=== PATIENT | female | born 1940 | race Two or more races ===

== ENCOUNTER 2020-07-07 11:23 | Outpatient (REF) | payer OTHER, MEDICAID, SELFPAY ==
[2020-07-07 12:09] LABS: Hematocrit 38.5 % (37-47); Hemoglobin 12.5 g/dl (12.0-16.0); Mean Corpuscular HGB Conc 32.5 g/dl (31.0-35.0); Mean Corpuscular Hemoglobin 31.3 pg (27.0-33.0); Mean Corpuscular Volume 96.3 fL (80-98); Mean Platelet Volume 8.8 fL (9.4-12.3); Platelet Count 293 X10*3/uL (160-400); Red Cell Distribution Width 12.4 % (11.0-16.0); White Blood Count 5.6 X10*3/uL (4.8-10.8)
[2020-07-07 12:17] LABS: Estimated Average Glucose 114 mg/dL; Hemoglobin A1c % 5.6 %
[2020-07-07 12:34] LABS: Anion Gap 13 (12-20); Blood Urea Nitrogen 15 mg/dL (9-16); Calcium 9.2 mg/dL (8.4-10.2); Carbon Dioxide 27 mmol/L (22-29); Chloride 107 mmol/L (96-108); Estimated Glomerular Filt Rate 48; Glucose Random 91 mg/dL (60-115); Potassium 4.5 mmol/l (3.3-5.1); Sodium 142 mmol/L (135-145)
== END 2020-07-07 11:24 | disposition home or self-care (01) ==
LOC: HO.LAB 11:23
PROVIDERS: PCP Internal Medicine; Visit Provider Physician Assistant
DX: I10 Essential (primary) hypertension (principal)
CPT/HCPCS: 36415; 80048; 83036; 85027

== ENCOUNTER 2020-08-02 10:18 | Outpatient (REF) | payer OTHER, SELFPAY ==
--- NOTE | 2020-08-02 10:21 | CT_ITS ---
EXAMINATION: CT CHEST WITHOUT CONTRAST CLINICAL INFORMATION: Follow-up pulmonary nodule COMPARISON: Chest CT March [address] of the abdomen and pelvis November 2017 TECHNIQUE: Multidetector volumetric CT imaging of the chest was done. Axial MIP volume rendering provided. Sagittal and coronal reformatted images were obtained. This CT examination was performed using dose optimization techniques as appropriate, variously including the following: *Automated exposure control *Adjustment of mA and/or kV according to patient size (this includes techniques or standardized protocols for targeted exams where dose is matched to indication/reason for exam; i.e. 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 The lungs are otherwise clear. The previously identified groundglass opacities and areas of atelectasis/consolidation at the lung bases on March 2019 exam are no longer seen. MEDIASTINUM: The thoracic aorta is upper normal in size. The descending thoracic aorta is tortuous. The heart does not appear enlarged. There is mild coronary artery calcification. The right brachiocephalic artery is slightly ectatic measuring 1.2 cm. There are small mediastinal lymph nodes that are stable. The visualized thyroid gland is unremarkable. There is no pericardial effusion. PLEURA: There is no pleural effusion. No pleural mass or thickening. AXILLA: No lymphadenopathy. UPPER ABDOMEN: The gallbladder has been removed. There is a cyst in the upper pole of the right kidney. The visualized upper abdominal aorta is upper normal in size measuring 3 cm. 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 This is similar to previous abdominal pelvic CT scan from 2018. OSSEOUS STRUCTURES: There are mild degenerative changes of the spine. CT/CT chest wo con IMPRESSION: No pulmonary nodule seen. Mild biapical pleural parenchymal scarring. Previously identified atelectasis/consolidation and areas of groundglass attenuation at the lung bases on March 2019 exam are no longer seen. Tortuous thoracic aorta and great vessels. Mild coronary artery calcification.
== END 2020-08-02 10:19 | disposition home or self-care (01) ==
LOC: HO.CT 10:18
PROVIDERS: PCP Internal Medicine; Visit Provider Internal Medicine Pulmonary Disease
DX: R91.8 Other nonspecific abnormal finding of lung field (principal)
CPT/HCPCS: 71250

== ENCOUNTER 2020-09-13 07:53 | Outpatient (REF) | payer OTHER, MEDICAID, SELFPAY ==
[2020-09-13 08:29] LABS: Basophils Percent Auto 0.7 % (0-2); Eosinophils Absolute Auto 0.4 X10*3/uL (0.0-0.4); Eosinophils Percent Auto 6.8 % (0-4); Hematocrit 39.1 % (37-47); Hemoglobin 12.5 g/dl (12.0-16.0); Imm Gran Abs Auto 0.01 X10*3/uL (0.00-0.03); Imm Gran Pct Auto 0.2 % (0.0-0.4); Lymphocytes Absolute Auto 2.4 X10*3/uL (1.2-4.9); Lymphocytes Percent Auto 39.7 % (20-40); MANUAL DIFF FLAG NO; Mean Corpuscular Hemoglobin 31.7 pg (27.0-33.0); Mean Corpuscular Volume 99.2 fL (80-98); Mean Platelet Volume 8.9 fL (9.4-12.3); Monocytes Absolute Auto 0.5 X10*3/uL (0.1-1.2); Monocytes Percent Auto 8.3 % (2-11); Neutrophils Absolute Auto 2.6 X10*3/uL (2.0-8.3); Neutrophils Percent Auto 44.3 % (45-73); Platelet Count 296 X10*3/uL (160-400); Red Blood Count 3.94 X10*6/uL (4.20-5.50); Red Cell Distribution Width 12.8 % (11.0-16.0); White Blood Count 5.9 X10*3/uL (4.8-10.8)
[2020-09-13 09:12] LABS: Alanine Aminotransferase 11 U/L (0-31); Albumin Level 3.9 g/dL (3.5-5.0); Alkaline Phosphatase 87 U/L (39-117); Anion Gap 10 (12-20); Aspartate Amino Transferase 21 U/L (5-31); Bilirubin Total 0.4 mg/dL (0.0-1.0); Blood Urea Nitrogen 12 mg/dL (9-16); Carbon Dioxide 28 mmol/L (22-29); Chloride 109 mmol/L (96-108); Cholesterol 237 mg/dL; Estimated Glomerular Filt Rate 45; Glucose Fasting 91 mg/dL (60-99); HDL Cholesterol 57 mg/dL; LDL Cholesterol Calculated 154 mg/dl; Potassium 4.4 mmol/l (3.3-5.1); Sodium 143 mmol/L (135-145); Total Protein 6.8 g/dL (6.5-8.0); Triglycerides 134 mg/dL
[2020-09-13 09:26] LABS: Vitamin D 25-OH Total 33.2 ng/mL (>30)
== END 2020-09-13 07:54 | disposition home or self-care (01) ==
LOC: HO.LAB 07:53
PROVIDERS: Visit Provider Internal Medicine
DX: E78.00 Pure hypercholesterolemia, unspecified (principal); G43.909 Migraine, unspecified, not intractable, without status migrainosus; E55.9 Vitamin D deficiency, unspecified
CPT/HCPCS: 36415; 80053; 80061; 82306; 85025

== ENCOUNTER → 2020-11-15 08:33 | Outpatient (BNVA) | payer OTHER, SELFPAY | PROVIDERS: PCP Internal Medicine; Visit Provider Internal Medicine Pulmonary Disease | DX: J44.9 Chronic obstructive pulmonary disease, unspecified (principal); R91.8 Other nonspecific abnormal finding of lung field | CPT/HCPCS: 99212 ==

== ENCOUNTER 2021-01-02 08:10 | Outpatient (REF) | payer OTHER, SELFPAY ==
[2021-01-02 09:05] LABS: MANUAL DIFF FLAG NO
[2021-01-02 09:14] LABS: Basophils Absolute Auto 0.1 X10*3/uL (0.0-0.2); Basophils Percent Auto 0.9 % (0-2); Eosinophils Absolute Auto 0.4 X10*3/uL (0.0-0.4); Hematocrit 39.1 % (37-47); Hemoglobin 12.2 g/dl (12.0-16.0); Imm Gran Abs Auto 0.01 X10*3/uL (0.00-0.03); Imm Gran Pct Auto 0.2 % (0.0-0.4); Lymphocytes Percent Auto 34.5 % (20-40); Mean Corpuscular HGB Conc 31.2 g/dl (31.0-35.0); Mean Corpuscular Volume 99.2 fL (80-98); Mean Platelet Volume 8.5 fL (9.4-12.3); Monocytes Absolute Auto 0.5 X10*3/uL (0.1-1.2); Monocytes Percent Auto 8.8 % (2-11); Neutrophils Absolute Auto 2.8 X10*3/uL (2.0-8.3); Neutrophils Percent Auto 48.6 % (45-73); Platelet Count 313 X10*3/uL (160-400); Red Blood Count 3.94 X10*6/uL (4.20-5.50); Red Cell Distribution Width 12.9 % (11.0-16.0); White Blood Count 5.7 X10*3/uL (4.8-10.8)
[2021-01-02 09:33] LABS: Anion Gap 14 (12-20); Blood Urea Nitrogen 16 mg/dL (9-16); Calcium 8.9 mg/dL (8.4-10.2); Carbon Dioxide 25 mmol/L (22-29); Chloride 108 mmol/L (96-108); Cholesterol 183 mg/dL; Estimated Glomerular Filt Rate 43; Glucose Fasting 93 mg/dL (60-99); HDL Cholesterol 60 mg/dL; LDL Cholesterol Calculated 100 mg/dl; Potassium 4.5 mmol/L (3.3-5.1); Sodium 142 mmol/L (135-145); Triglycerides 116 mg/dL
== END 2021-01-02 08:11 | disposition home or self-care (01) ==
LOC: HO.LAB 08:10
PROVIDERS: PCP Internal Medicine; Visit Provider Nurse Practitioner Family
DX: I10 Essential (primary) hypertension (principal)
CPT/HCPCS: 36415; 80048; 80061; 85025

== ENCOUNTER 2021-01-03 09:38 | Outpatient (REF) | payer OTHER, SELFPAY ==
[2021-01-03 09:46] LABS: Glucose Urine UA NEG (NEG); Leukocyte Esterase Urine NEG (NEG); Nitrite Urine NEG (NEG); Specific Gravity - Urine >= 1.030 (1.005-1.025); Urine Blood TRACE (NEG); Urine Ketones 5 MG/DL (NEG); Urine Protein TRACE MG/DL (NEG-TRACE)
[2021-01-03 09:47] LABS: Appearance Urine CLOUDY; Color Urine YELLOW
[2021-01-03 09:55] LABS: Bacteria Urine TRACE /LPF; Squamous Epithelial Cell Urine 2+ /LPF; WBC Urine 0-2 /HPF (0-4)
== END 2021-01-03 09:39 | disposition home or self-care (01) ==
LOC: HO.LNP 09:38
PROVIDERS: Visit Provider Nurse Practitioner Family
DX: I10 Essential (primary) hypertension (principal)
CPT/HCPCS: 81001

== ENCOUNTER 2021-02-15 09:33 | Emergency (ER) | payer OTHER, SELFPAY ==
[2021-02-15 09:53] VITALS: BP 98/67; PULSE 100; RESP 18; TEMP 37.2; O2SAT 91; BMI 24.6
[2021-02-15 10:07] VITALS: BP 120/72; PULSE 83; RESP 16; TEMP 36.9; O2SAT 93
--- NOTE | 2021-02-15 11:40 | PC.NURSE ---
Patient is sitting up on side of bed in no distress. pt denies any pain currently. Respirations are even and nonlabored
[2021-02-15 11:42] VITALS: BP 122/72; PULSE 78; RESP 18; O2SAT 96
--- NOTE | 2021-02-15 11:49 | ED.PEDSOB ---
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 Months of shortness of breath, denies fever MD complaint: cough and wheezes Onset (ago): month(s) Pain Consistency: intermittent Fever: No Severity: mild Associated symptoms: cough Related Data Home Medications Medication Instructions Recorded Confirmed dicyclomine 20 mg tablet 20 mg PO QID 07/07/20 01/12/21 fluticasone propionate 220 INHALATION 07/07/20 01/12/21 mcg/actuation HFA aerosol inhaler quetiapine 25 mg tablet 25 mg PO BID 07/07/20 01/12/21 Previous Rx's Medication Instructions Recorded acetaminophen 500 mg tablet 500 mg PO Q6H PRN 30 Days #120 tab 09/20/20 amlodipine 5 mg tablet 5 mg PO DAILY 90 Days #90 tab 09/20/20 atorvastatin 80 mg tablet 80 mg PO DAILY 90 Days #90 tab 09/20/20 ezetimibe 10 mg tablet 10 mg PO DAILY 90 Days #90 tab 09/20/20 fluticasone propionate 50 1 spray INTRANASAL DAILY 30 Days 09/20/20 mcg/actuation nasal #9.9 ml spray,suspension omeprazole 20 mg capsule,delayed 20 mg PO DAILY 90 Days #90 cap 09/21/20 release meclizine 25 mg tablet 25 mg PO DAILY PRN 30 Days #30 tab 10/20/20 fluoxetine 40 mg capsule 40 mg PO QAM #30 cap 10/31/20 docusate sodium 100 mg capsule 100 mg PO BID PRN 90 Days #180 cap 11/04/20 albuterol sulfate 90 mcg/actuation 2 puff PO Q4H PRN 30 Days #8.5 g 11/07/20 aerosol inhaler fluticasone fur. 200 mcg-umeclid 1 inh INHALATION DAILY 30 Days #1 11/15/20 62.5 mcg-vilant 25 mcg ea inhalat.powder albuterol sulfate 2.5 mg INHALATION TID PRN 30 Days 11/17/20 #75 ml cephalexin 500 mg tablet 500 mg PO Q12H 7 Days #14 tab 01/12/21 cetirizine 10 mg tablet 10 mg PO DAILY 90 Days #90 tab 01/12/21 sumatriptan succinate 50 mg tablet 50 mg PO DAILY PRN 90 Days #27 tab 01/12/21 calcium carbonate 600 mg (1,500 1 tab PO DAILY #30 tab 01/16/21 mg)-vitamin D3 400 unit tablet cholecalciferol (vitamin D3) 25 25 mcg PO DAILY #30 tab 01/16/21 mcg (1,000 unit) tablet tiotropium bromide 18 mcg capsule 1 cap INHALATION DAILY #90 cap 02/13/21 with inhalation device albuterol sulfate 2 puff INHALATION QID PRN #8.5 g 02/15/21 prednisone 60 mg PO DAILY #12 tab 02/15/21 Allergies Allergy/AdvReac Type Severity Reaction Status Date / Time trazodone Allergy Intermediate nausea Verified 01/12/21 09:25 Pediatric Review of Systems : All systems ED: reviewed and negative except as stated Constitutional: Reports as per HPI and fever PMFSH Past Medical History Medical History Depression with anxiety GERD (gastroesophageal reflux disease) Migraines Pure hypercholesterolemia Surgical History H/O rectal polypectomy History of bilateral cataract extraction History of cholecystectomy History of repair of rectocele History of sinus surgery Family History Family History Father Cancer Mother Pancreatic cancer Brother Pancreatic cancer Daughter Breast cancer Family/Other FH: mental illness Maternal Grandmother Diabetes Social History Social History Alcohol intake: never Patient Tobacco Use Status: Never used Tobacco Cigarettes Per Day: 4 Smoked in Last 30 Days: No Use of substances other than those prescribed or required for medical reasons: No Advance Directives: Yes Advance Directives Information Provided: Yes Advance Directives on File: No Pediatric Exam Narrative: Physical exam: well developed well nourished hydrated elderly female not distress General: Limitations: no limitations Eye: Eye exam: Present normal appearance ENT: ENT exam: normal oropharynx, mucous membranes moist and other (no pharyngeal erythema) Neck: Neck exam: Present other (supple) Chest: Chest inspection: Present normal inspection and rash Respiratory: Respiratory exam: Present wheezes Cardiovascular: Cardiovascular exam: Present regular rate and normal heart sounds Abdominal Exam: Abdominal exam: Present soft; Absent tenderness Extremities Exam: Extremities exam: Present normal inspection and full ROM Skin: Skin exam: Absent rash Course Course Course Narrative: patient with mild chronic asthma will start short course of steriods and dc home Reevaluation(s) Reevaluation #1: feels better, will dc home Time: 13:18 Discharge Plan Discharge Clinical Impression: Asthma with exacerbation Qualifiers: Asthma severity: mild Asthma persistence: intermittent Qualified Code(s): J45.21 - Mild intermittent asthma with (acute) exacerbation Patient Disposition: Home, Self-Care Instructions: Asthma (ED) Prescriptions: New prednisone 20 mg tablet 60 mg PO DAILY Qty: 12 RF: 0 albuterol sulfate 90 mcg/actuation HFA aerosol inhaler 2 puff inhalation QID PRN (Reason: shortness of breath or wheezing) Qty: 8.5 RF: 0 No Action omeprazole 20 mg capsule,delayed release(DR/EC) 20 mg PO DAILY 90 Days Qty: 90 RF: 3 fluoxetine 40 mg capsule 40 mg PO QAM Qty: 30 RF: 6 docusate sodium [DOK] 100 mg capsule 100 mg PO BID PRN (Reason: congestion) 90 Days Qty: 180 RF: 3 albuterol sulfate 90 mcg/actuation HFA aerosol inhaler 2 puff PO Q4H PRN (Reason: bronchospasm) 30 Days Qty: 8.5 RF: 2 albuterol sulfate 2.5 mg /3 mL (0.083 %) solution for nebulization 2.5 mg inhalation TID PRN (Reason: bronchospasm) 30 Days Qty: 75 RF: 6 calcium carbonate-vitamin D3 600 mg(1,500mg) -400 unit tablet 1 tab PO DAILY Qty: 30 RF: 7 cholecalciferol (vitamin D3) 25 mcg (1,000 unit) tablet 25 mcg PO DAILY Qty: 30 RF: 7 tiotropium bromide [Spiriva with HandiHaler] 18 mcg capsule, w/inhalation device 1 cap inhalation DAILY Qty: 90 RF: 1 acetaminophen 500 mg tablet 500 mg PO Q6H PRN (Reason: pain) 30 Days Qty: 120 RF: 6 atorvastatin 80 mg tablet 80 mg PO DAILY 90 Days Qty: 90 RF: 3 ezetimibe 10 mg tablet 10 mg PO DAILY 90 Days Qty: 90 RF: 3 fluticasone propionate [Flonase Allergy Relief] 50 mcg/actuation spray,suspension 1 spray intranasal DAILY 30 Days Qty: 9.9 RF: 6 amlodipine 5 mg tablet 5 mg PO DAILY 90 Days Qty: 90 RF: 3 meclizine 25 mg tablet 25 mg PO DAILY PRN (Reason: motion sickness) 30 Days Qty: 30 RF: 0 Flovent HFA 220 mcg/actuation HFA aerosol inhaler inhalation RF: 0 dicyclomine 20 mg tablet 20 mg PO QID RF: 0 quetiapine 25 mg tablet 25 mg PO BID RF: 0 cetirizine 10 mg tablet 10 mg PO DAILY 90 Days Qty: 90 RF: 0 sumatriptan succinate 50 mg tablet 50 mg PO DAILY PRN (Reason: migraine headache) 90 Days Qty: 27 RF: 0 cephalexin 500 mg tablet 500 mg PO Q12H 7 Days Qty: 14 RF: 0 Trelegy Ellipta 200-62.5-25 mcg blister with device 1 inh inhalation DAILY 30 Days Qty: 1 RF: 6 Referrals: Socorro Waite MD [Primary Care Provider] - 1 week
[2021-02-15] MEDS: Albuterol Sulfate 90 MCG 8 GM INHALER 4 PUFF INHALE (12:12)
[2021-02-15 12:13] VITALS: PULSE 70; O2SAT 93
[2021-02-15] MEDS: predniSONE 20 MG TABLET 60 MG PO (12:26)
[2021-02-15 12:46] VITALS: BP 123/70; PULSE 66; RESP 20; O2SAT 93
--- NOTE | 2021-02-15 13:20 | PC.NURSE ---
Patient states she is feeling much better and wants to go home. Doctor notified of patient request.
[2021-02-15 13:37] LABS: Influenza A PCR NEGATIVE (Negative); Influenza B PCR NEGATIVE (Negative); Resp Syncy Virus RNA Qual PCR NEGATIVE (Negative); SARS COV2 PCR INHOUSE NEGATIVE (Negative)
== END 2021-02-15 14:12 | disposition home or self-care (01) ==
PROVIDERS: Emergency Provider Emergency Medicine; PCP Internal Medicine
DX: J45.21 Mild intermittent asthma with (acute) exacerbation (principal); Z20.822 Contact with and (suspected) exposure to COVID-19; Z79.899 Other long term (current) drug therapy; F17.210 Nicotine dependence, cigarettes, uncomplicated; Z71.6 Tobacco abuse counseling
CPT/HCPCS: 0241U; 36415; 94640; 99284

== ENCOUNTER 2021-03-15 07:40 | Outpatient (REF) | payer OTHER, SELFPAY ==
--- NOTE | ~2021-03-15 | MM_ITS ---
EXAMINATION: MM SCREENING DIGITAL BREAST TOMOSYNTHESIS, BILATERAL CLINICAL INFORMATION: Screening. Asymptomatic. The lifetime risk of breast cancer based on the Tyrer-Cuzick Model is 3%. COMPARISON: Mammography: 03/08/2020, 03/03/2019, 01/13/2018 TECHNIQUE: Digital breast tomosynthesis is performed in both the craniocaudal and mediolateral oblique views along with computer-aided detection (CAD). Synthesized 2D images are generated from the tomosynthesis. FINDINGS: The breasts are almost entirely fatty (ACR BI-RADS breast composition Category a). There are no significant masses, abnormal calcifications, or other abnormalities. There are scattered bilateral vascular and some ductal secretory calcifications. The axilla and skin contours are unremarkable. No significant changes. MM/MM tomosynthesis screening BI IMPRESSION: No mammographic evidence of malignancy. ASSESSMENT: BI-RADS 2: Benign RECOMMENDATION: Routine annual mammography screening. This patient's information was entered into a reminder system with a target due date for their next mammogram.
== END 2021-03-15 07:41 | disposition home or self-care (01) ==
LOC: HO.MAMMO 07:40
PROVIDERS: Visit Provider Internal Medicine
DX: Z12.31 Encounter for screening mammogram for malignant neoplasm of breast (principal)
CPT/HCPCS: 77063; 77067

== ENCOUNTER → 2021-03-23 10:17 | Outpatient (BNVA) | payer OTHER, SELFPAY | PROVIDERS: PCP Internal Medicine; Visit Provider Internal Medicine Pulmonary Disease | DX: J44.9 Chronic obstructive pulmonary disease, unspecified (principal); R91.8 Other nonspecific abnormal finding of lung field | CPT/HCPCS: 99212 ==

== ENCOUNTER 2021-05-09 07:07 | Outpatient (REF) | payer OTHER, SELFPAY ==
[2021-05-09 08:56] LABS: Alanine Aminotransferase 12 U/L (0-31); Albumin Level 4.1 g/dL (3.5-5.0); Alkaline Phosphatase 89 U/L (39-117); Anion Gap 13 (12-20); Aspartate Amino Transferase 23 U/L (5-31); Bilirubin Total 0.3 mg/dL (0.0-1.0); Blood Urea Nitrogen 10 mg/dL (9-16); Calcium 9.5 mg/dL (8.4-10.2); Carbon Dioxide 27 mmol/L (22-29); Chloride 109 mmol/L (96-108); Cholesterol 201 mg/dL; Estimated Glomerular Filt Rate 40; Glucose Fasting 89 mg/dL (60-99); HDL Cholesterol 58 mg/dL; LDL Cholesterol Calculated 113 mg/dl; Potassium 4.5 mmol/L (3.3-5.1); Sodium 144 mmol/L (135-145); Triglycerides 150 mg/dL
[2021-05-15 13:17] LABS: Vitamin D 25-OH, D2 <4 ng/mL; Vitamin D 25-OH, D3 37 ng/mL; Vitamin D 25-OH, Total 37 ng/mL (30-100)
== END 2021-05-09 07:08 | disposition home or self-care (01) ==
LOC: HO.LAB 07:07
PROVIDERS: PCP Internal Medicine; Visit Provider Internal Medicine
DX: E78.5 Hyperlipidemia, unspecified (principal); E55.9 Vitamin D deficiency, unspecified; G43.909 Migraine, unspecified, not intractable, without status migrainosus
CPT/HCPCS: 36415; 80053; 80061; 82306

== ENCOUNTER 2021-08-14 10:10 | Outpatient (REF) | payer OTHER, SELFPAY ==
--- NOTE | ~2021-08-14 | CT_ITS ---
EXAMINATION: CT CHEST WITHOUT CONTRAST CLINICAL INFORMATION: Follow-up pulmonary nodules COMPARISON: Previous chest CT most recent July 2020 TECHNIQUE: Multidetector volumetric CT imaging of the chest was done. Axial MIP volume rendering provided. Sagittal and coronal reformatted images were obtained. This CT examination was performed using dose optimization techniques as appropriate, variously including the following: *Automated exposure control *Adjustment of mA and/or kV according to patient size (this includes techniques or standardized protocols for targeted exams where dose is matched to indication/reason for exam; i.e. extremities or head) *Use of iterative reconstruction technique DLP: 131 mGy-cm FINDINGS: LUNGS: There is mild biapical pleural and parenchymal scarring. There is minimal scarring or subsegmental atelectasis at the right posterior lateral costophrenic angle axial image 46 series 4 and medial left lower lobe adjacent to the descending thoracic aorta axial image 45 series 4 that is stable. The lungs are otherwise clear. No evidence of emphysema interstitial lung disease or bronchiectasis is seen. There is no endobronchial or endotracheal lesion. MEDIASTINUM: The heart does not appear enlarged. There is mild coronary artery calcification. Thoracic aorta is upper normal in size and tortuous. There are no enlarged hilar or mediastinal lymph nodes. PLEURA: There is no pleural effusion. No pleural mass or thickening. AXILLA: No lymphadenopathy. UPPER ABDOMEN: The gallbladder is been removed. There is a 2 cm low-attenuation lesion in the right kidney probably representing a cyst that is stable. 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 OSSEOUS STRUCTURES: There are degenerative changes of the spine. There are lucent lesions with vertical striations in the lower thoracic and upper lumbar spine likely representing hemangiomas that are stable. CT/CT chest wo con IMPRESSION: Stable minimal scarring or subsegmental atelectasis at the lung bases. Fleischner guidelines were followed.
== END 2021-08-14 10:11 | disposition home or self-care (01) ==
LOC: HO.CT 10:10
PROVIDERS: PCP Internal Medicine; Visit Provider Internal Medicine Pulmonary Disease
DX: R91.8 Other nonspecific abnormal finding of lung field (principal)
CPT/HCPCS: 71250

== ENCOUNTER 2021-08-22 08:31 | Outpatient (REF) | payer OTHER, SELFPAY ==
--- NOTE | ~2021-08-22 | XR_ITS ---
EXAMINATION: XR MANDIBLE CLINICAL INFORMATION: Jaw pain COMPARISON: None TECHNIQUE: 4 views of the mandible were obtained. FINDINGS: Patient is a edentulous. No fracture. No focal bone lesion. TMJ joints are normal. Visualized paranasal sinuses normally aerated. Degenerative spondylosis of the mid lower cervical spine is partially imaged. XR/XR mandible <4V IMPRESSION: No acute abnormality of the mandible.
== END 2021-08-22 08:32 | disposition home or self-care (01) ==
LOC: HO.XRAY 08:31
PROVIDERS: PCP Internal Medicine; Visit Provider Internal Medicine
DX: R68.84 Jaw pain (principal)
CPT/HCPCS: 70100

== ENCOUNTER → 2021-08-25 09:57 | Outpatient (BNVA) | payer OTHER, SELFPAY | PROVIDERS: PCP Internal Medicine; Visit Provider Internal Medicine Pulmonary Disease | DX: J44.9 Chronic obstructive pulmonary disease, unspecified (principal); R91.8 Other nonspecific abnormal finding of lung field | CPT/HCPCS: 99212 ==

== ENCOUNTER 2021-11-22 08:50 | Outpatient (REF) | payer OTHER, SELFPAY ==
[2021-11-22 09:40] LABS: Hematocrit 39.3 % (37.0-47.0); Hemoglobin 12.9 g/dl (12.0-16.0); Mean Corpuscular HGB Conc 32.8 g/dl (31.0-35.0); Mean Corpuscular Hemoglobin 31.7 pg (27.0-33.0); Mean Corpuscular Volume 96.6 fL (80.0-98.0); Mean Platelet Volume 8.4 fL (9.4-12.3); Platelet Count 337 X10*3/uL (160-400); Red Blood Count 4.07 X10*6/uL (4.20-5.50); Red Cell Distribution Width 12.7 % (11.0-16.0); White Blood Count 6.2 X10*3/uL (4.8-10.8)
[2021-11-22 09:42] LABS: Appearance Urine CLEAR; Color Urine STRAW; Glucose Urine UA NEG (NEG); Leukocyte Esterase Urine TRACE (NEG); Nitrite Urine NEG (NEG); PH 5.5 (5.0-8.0); Specific Gravity - Urine <= 1.005 (1.005-1.025); Urine Blood TRACE (NEG); Urine Ketones NEG (NEG); Urine Protein NEG (NEG-TRACE)
[2021-11-22 10:03] LABS: RBC Urine 0-2 /HPF (0); Squamous Epithelial Cell Urine TRACE /LPF
[2021-11-22 10:23] LABS: Erythrocyte Sedimentation Rate 26 MM/HR (0-20)
[2021-11-22 10:24] LABS: Alanine Aminotransferase 12 U/L (0-31); Albumin Level 4.2 g/dL (3.5-5.0); Alkaline Phosphatase 103 U/L (39-117); Anion Gap 13 (12-20); Aspartate Amino Transferase 25 U/L (5-31); Bilirubin Direct < 0.2 mg/dL (0.0-0.5); Bilirubin Total 0.3 mg/dL (0.0-1.0); Blood Urea Nitrogen 13 mg/dL (9-16); Calcium 9.9 mg/dL (8.4-10.2); Carbon Dioxide 27 mmol/L (22-29); Chloride 108 mmol/L (96-108); Cholesterol 317 mg/dL; Estimated Glomerular Filt Rate 46; Glucose Random 85 mg/dL (60-115); HDL Cholesterol 62 mg/dL; LDL Cholesterol Calculated 221 mg/dl; Potassium 4.9 mmol/L (3.3-5.1); Sodium 143 mmol/L (135-145); Total Protein 7.6 g/dL (6.5-8.0); Triglycerides 170 mg/dL
[2021-11-22 10:46] LABS: Thyroid Stimulating Hormone 1.62 uIU/mL (0.32-4.0)
== END 2021-11-22 08:51 | disposition home or self-care (01) ==
LOC: HO.LAB 08:50
PROVIDERS: PCP Internal Medicine; Visit Provider Internal Medicine
DX: R42 Dizziness and giddiness (principal); I10 Essential (primary) hypertension
CPT/HCPCS: 36415; 80048; 80061; 80076; 81001; 84443; 85027; 85652

== ENCOUNTER 2021-12-05 07:38 | Outpatient (REF) | payer OTHER, SELFPAY ==
--- NOTE | ~2021-12-05 | XR_ITS ---
EXAMINATION: XR CHEST CLINICAL INFORMATION: Syncope and collapse COMPARISON: Previous chest CT July 2021 and chest x-ray March 2019 TECHNIQUE: 2 views of the chest were obtained. FINDINGS: The cardiac silhouette does not appear enlarged. The thoracic aorta is tortuous. Hilar and mediastinal contours are otherwise unremarkable. The lungs are clear. There is no pleural effusion or pneumothorax. Bony structures are unremarkable. XR/XR chest 2V IMPRESSION: No evidence for acute disease in the chest.
--- NOTE | 2021-12-05 07:43 | ECG_ITS ---
Test Reason : r55 Blood Pressure : / mmHG Vent. Rate : 074 BPM Atrial Rate : 074 BPM P-R Int : 246 ms QRS Dur : 084 ms QT Int : 378 ms P-R-T Axes : 071 075 063 degrees QTc Int : 419 ms Sinus rhythm with 1st degree A-V block Abnormal ECG When compared with ECG of 27-OCT-2019 10:01, No significant change was found Referred By: Trixie Barber Electronically Signed By:ONDINA PAYNE
[2021-12-05 08:56] LABS: Anion Gap 14 (12-20); Blood Urea Nitrogen 17 mg/dL (9-16); Calcium 9.4 mg/dL (8.4-10.2); Carbon Dioxide 25 mmol/L (22-29); Chloride 107 mmol/L (96-108); Estimated Glomerular Filt Rate 40; Glucose Random 132 mg/dL (60-115); Potassium 4.2 mmol/L (3.3-5.1); Sodium 142 mmol/L (135-145)
[2021-12-05 09:07] LABS: Appearance Urine HAZY; Color Urine YELLOW; Glucose Urine UA NEG (NEG); Leukocyte Esterase Urine 1+ (NEG); Nitrite Urine NEG (NEG); PH 5.5 (5.0-8.0); Specific Gravity - Urine >= 1.030 (1.005-1.025); UACC Culture Trigger YES; Urine Blood TRACE (NEG); Urine Ketones NEG (NEG); Urine Protein TRACE MG/DL (NEG-TRACE)
[2021-12-05 09:09] LABS: Erythrocyte Sedimentation Rate 16 MM/HR (0-20)
[2021-12-05 09:40] LABS: Bacteria Urine 1+ /LPF; Mucus Urine 1+ /LPF; Squamous Epithelial Cell Urine 1+ /LPF
== END 2021-12-05 07:39 | disposition home or self-care (01) ==
LOC: HO.LAB 07:38
PROVIDERS: PCP Internal Medicine; Visit Provider Nurse Practitioner Family
DX: R55 Syncope and collapse (principal); R42 Dizziness and giddiness; R70.0 Elevated erythrocyte sedimentation rate
CPT/HCPCS: 36415; 71046; 80048; 81001; 81003; 85652; 87086; 93005

== ENCOUNTER → 2022-03-22 08:32 | Outpatient (BNVA) | payer OTHER, SELFPAY | PROVIDERS: PCP Internal Medicine; Visit Provider Internal Medicine Pulmonary Disease | DX: J44.9 Chronic obstructive pulmonary disease, unspecified (principal); R91.8 Other nonspecific abnormal finding of lung field; Z79.899 Other long term (current) drug therapy | CPT/HCPCS: 99212 ==

== ENCOUNTER → 2022-05-21 08:05 | Outpatient (BNVA) | payer OTHER, SELFPAY | PROVIDERS: PCP Internal Medicine; Visit Provider Orthopaedic Surgery | DX: M17.0 Bilateral primary osteoarthritis of knee (principal) | CPT/HCPCS: 20610; 99212; J1100 ==

== ENCOUNTER 2022-06-14 08:49 | Outpatient (REF) | payer OTHER, SELFPAY ==
--- NOTE | ~2022-06-14 | XR_ITS ---
EXAMINATION: XR KNEES AP STANDING, BILATERAL XR KNEE, 2 VIEWS, LEFT XR KNEE, 2 VIEWS, RIGHT CLINICAL INFORMATION: Bilateral knee pain. COMPARISON: 01/08/2019 TECHNIQUE: Standing AP view of both knees and lateral and sunrise views of each knee. FINDINGS: LEFT KNEE: There is mild medial compartment joint space narrowing with marginal osteophytes, more pronounced as compared to prior. Osteophytes are also evident in the lateral and patellofemoral compartments. Mild articular cortical irregularity and joint space narrowing in the patellofemoral compartment. No joint effusion. No fracture or malalignment. Mild soft tissue swelling. Calcific atherosclerosis in the popliteal artery. RIGHT KNEE: Mild medial compartment joint space narrowing with small to moderate-sized marginal osteophytes, unchanged. Additional mild lateral compartment joint space narrowing and patellofemoral compartment joint space narrowing with small marginal osteophytes. Small right knee joint effusion. Calcific atherosclerosis is present in the popiteal artery. There are calcifications in the posterior soft tissues which are of uncertain etiology, potentially due in part to calcifications within a Avalos's cyst. Mild soft tissue swelling. 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 Progression of the mild medial compartment osteoarthritis in the left knee. Mild patellofemoral compartment osteoarthritis appears unchanged.
--- NOTE | ~2022-06-14 | XR_ITS ---
EXAMINATION: XR KNEES AP STANDING, BILATERAL XR KNEE, 2 VIEWS, LEFT XR KNEE, 2 VIEWS, RIGHT CLINICAL INFORMATION: Bilateral knee pain. COMPARISON: 01/08/2019 TECHNIQUE: Standing AP view of both knees and lateral and sunrise views of each knee. FINDINGS: LEFT KNEE: There is mild medial compartment joint space narrowing with marginal osteophytes, more pronounced as compared to prior. Osteophytes are also evident in the lateral and patellofemoral compartments. Mild articular cortical irregularity and joint space narrowing in the patellofemoral compartment. No joint effusion. No fracture or malalignment. Mild soft tissue swelling. Calcific atherosclerosis in the popliteal artery. RIGHT KNEE: Mild medial compartment joint space narrowing with small to moderate-sized marginal osteophytes, unchanged. Additional mild lateral compartment joint space narrowing and patellofemoral compartment joint space narrowing with small marginal osteophytes. Small right knee joint effusion. Calcific atherosclerosis is present in the popiteal artery. There are calcifications in the posterior soft tissues which are of uncertain etiology, potentially due in part to calcifications within a Avalos's cyst. Mild soft tissue swelling. 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 Progression of the mild medial compartment osteoarthritis in the left knee. Mild patellofemoral compartment osteoarthritis appears unchanged.
--- NOTE | ~2022-06-14 | XR_ITS ---
EXAMINATION: XR KNEES AP STANDING, BILATERAL XR KNEE, 2 VIEWS, LEFT XR KNEE, 2 VIEWS, RIGHT CLINICAL INFORMATION: Bilateral knee pain. COMPARISON: 01/08/2019 TECHNIQUE: Standing AP view of both knees and lateral and sunrise views of each knee. FINDINGS: LEFT KNEE: There is mild medial compartment joint space narrowing with marginal osteophytes, more pronounced as compared to prior. Osteophytes are also evident in the lateral and patellofemoral compartments. Mild articular cortical irregularity and joint space narrowing in the patellofemoral compartment. No joint effusion. No fracture or malalignment. Mild soft tissue swelling. Calcific atherosclerosis in the popliteal artery. RIGHT KNEE: Mild medial compartment joint space narrowing with small to moderate-sized marginal osteophytes, unchanged. Additional mild lateral compartment joint space narrowing and patellofemoral compartment joint space narrowing with small marginal osteophytes. Small right knee joint effusion. Calcific atherosclerosis is present in the popiteal artery. There are calcifications in the posterior soft tissues which are of uncertain etiology, potentially due in part to calcifications within a Avalos's cyst. Mild soft tissue swelling. 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 Progression of the mild medial compartment osteoarthritis in the left knee. Mild patellofemoral compartment osteoarthritis appears unchanged.
== END 2022-06-14 08:50 | disposition home or self-care (01) ==
LOC: HO.HOSX 08:49
PROVIDERS: Visit Provider Orthopaedic Surgery
DX: M17.0 Bilateral primary osteoarthritis of knee (principal); R26.9 Unspecified abnormalities of gait and mobility
CPT/HCPCS: 73560; 73565; 99212

== ENCOUNTER 2022-11-01 08:49 | Outpatient (REF) | payer OTHER, SELFPAY ==
[2022-11-01 08:57] LABS: MANUAL DIFF FLAG NO
[2022-11-01 09:48] LABS: Basophils Absolute Auto 0.1 X10*3/uL (0.0-0.2); Basophils Percent Auto 0.7 % (0-2); Eosinophils Absolute Auto 0.4 X10*3/uL (0.0-0.4); Eosinophils Percent Auto 4.5 % (0-4); Hematocrit 37.2 % (37.0-47.0); Hemoglobin 11.9 g/dl (12.0-16.0); Imm Gran Abs Auto 0.02 X10*3/uL (0.00-0.03); Imm Gran Pct Auto 0.2 % (0.0-0.4); Lymphocytes Absolute Auto 2.4 X10*3/uL (1.2-4.9); Mean Corpuscular Hemoglobin 31.7 pg (27.0-33.0); Mean Corpuscular Volume 99.2 fL (80.0-98.0); Monocytes Absolute Auto 0.6 X10*3/uL (0.1-1.2); Monocytes Percent Auto 7.5 % (2-11); Neutrophils Absolute Auto 4.8 x10*3/uL (2.0-8.3); Neutrophils Percent Auto 58.1 % (45-73); Platelet Count 343 X10*3/uL (160-400); Red Blood Count 3.75 X10*6/uL (4.20-5.50); Red Cell Distribution Width 12.5 % (11.0-16.0); White Blood Count 8.3 X10*3/uL (4.8-10.8)
[2022-11-01 11:07] LABS: Alanine Aminotransferase 13 U/L (0-31); Albumin Level 4.2 g/dL (3.5-5.0); Alkaline Phosphatase 91 U/L (39-117); Anion Gap 16 (12-20); Aspartate Amino Transferase 24 U/L (5-31); Bilirubin Total 0.5 mg/dL (0.0-1.0); Blood Urea Nitrogen 16 mg/dL (9-16); Calcium 9.5 mg/dL (8.4-10.2); Carbon Dioxide 24 mmol/L (22-29); Chloride 108 mmol/L (96-108); Cholesterol 166 mg/dL; Estimated Glomerular Filt Rate 29; Glucose Fasting 84 mg/dL (60-99); HDL Cholesterol 53 mg/dL; LDL Cholesterol Calculated 86 mg/dl; Sodium 143 mmol/L (135-145); Total Protein 7.1 g/dL (6.5-8.0); Triglycerides 135 mg/dL; Vitamin D 25-OH Total 47.8 ng/mL (>30)
== END 2022-11-01 08:50 | disposition home or self-care (01) ==
LOC: HO.LAB 08:49
PROVIDERS: PCP Internal Medicine; Visit Provider Internal Medicine
DX: J44.9 Chronic obstructive pulmonary disease, unspecified (principal); E78.00 Pure hypercholesterolemia, unspecified; E55.9 Vitamin D deficiency, unspecified; E78.5 Hyperlipidemia, unspecified
CPT/HCPCS: 36415; 80053; 80061; 82306; 85025

== ENCOUNTER 2023-02-15 07:45 | Outpatient (REF) | payer OTHER, SELFPAY ==
--- NOTE | ~2023-02-15 | XR_ITS ---
EXAMINATION: Bilateral knee x-ray CLINICAL INFORMATION: Pain. Osteoarthritis. COMPARISON: Previous x-rays most recent May 2022 TECHNIQUE: 2 views of each knee FINDINGS: Right knee: There may be slight valgus angulation. Bone alignment is otherwise normal. No fracture or dislocation. Osteopenia. Tricompartment arthritis. Small joint effusion. Soft tissue calcification posterior to the knee not all of which appears vascular. Again, possible calcification Avalos's cyst should be considered. This is similar to previous exam. Left: Bone alignment is normal. No fracture or dislocation. Osteopenia. There is arthritis at the medial femoral tibial and patellofemoral joints with joint space narrowing and osteophyte formation. No joint effusion. XR/XR knee LT 2V IMPRESSION: Bilateral arthritis, right greater than left.
--- NOTE | ~2023-02-15 | XR_ITS ---
EXAMINATION: Bilateral knee x-ray CLINICAL INFORMATION: Pain. Osteoarthritis. COMPARISON: Previous x-rays most recent May 2022 TECHNIQUE: 2 views of each knee FINDINGS: Right knee: There may be slight valgus angulation. Bone alignment is otherwise normal. No fracture or dislocation. Osteopenia. Tricompartment arthritis. Small joint effusion. Soft tissue calcification posterior to the knee not all of which appears vascular. Again, possible calcification Avalos's cyst should be considered. This is similar to previous exam. Left: Bone alignment is normal. No fracture or dislocation. Osteopenia. There is arthritis at the medial femoral tibial and patellofemoral joints with joint space narrowing and osteophyte formation. No joint effusion. XR/XR knee RT 2V IMPRESSION: Bilateral arthritis, right greater than left.
== END 2023-02-15 07:46 | disposition home or self-care (01) ==
LOC: HO.XRAY 07:45
PROVIDERS: PCP Internal Medicine; Visit Provider Internal Medicine
DX: M17.0 Bilateral primary osteoarthritis of knee (principal)
CPT/HCPCS: 73560

== ENCOUNTER → 2023-03-12 09:37 | Outpatient (BNVA) | payer OTHER, SELFPAY | PROVIDERS: PCP Internal Medicine; Visit Provider Internal Medicine Pulmonary Disease | DX: J44.9 Chronic obstructive pulmonary disease, unspecified (principal); R91.8 Other nonspecific abnormal finding of lung field; Z79.899 Other long term (current) drug therapy | CPT/HCPCS: 99212 ==

== ENCOUNTER → 2023-03-22 09:42 | Outpatient (BNVA) | payer OTHER, SELFPAY | PROVIDERS: PCP Internal Medicine; Visit Provider Orthopaedic Surgery | DX: M17.11 Unilateral primary osteoarthritis, right knee (principal); M17.12 Unilateral primary osteoarthritis, left knee; R26.9 Unspecified abnormalities of gait and mobility | CPT/HCPCS: 20610; 99212; J1100 ==

== ENCOUNTER 2023-03-29 08:03 | Outpatient (REF) | payer OTHER, SELFPAY ==
--- NOTE | ~2023-03-29 | MM_ITS ---
EXAMINATION: MM SCREENING DIGITAL BREAST TOMOSYNTHESIS, BILATERAL CLINICAL INFORMATION: Screening. Asymptomatic. The lifetime risk of breast cancer based on the Tyrer-Cuzick Model is 2%. COMPARISON: Mammography: This study is compared with prior exams dating back to 2017. TECHNIQUE: Digital breast tomosynthesis is performed in both the craniocaudal and mediolateral oblique views along with computer-aided detection (CAD). Synthesized 2D images are generated from the tomosynthesis. FINDINGS: The breasts are almost entirely fatty (ACR BI-RADS breast composition Category a). There are no significant masses, abnormal calcifications, or other abnormalities. MM/MM tomosynthesis screening BI IMPRESSION: No mammographic evidence of malignancy. ASSESSMENT: BI-RADS BI-RADS 1 - Negative RECOMMENDATION: Routine annual mammography screening. 1 year F/U This examination should not preclude the clinical evaluation of a suspicious palpable abnormality. This patient's information was entered into a reminder system with a target due date for their next mammogram.
--- NOTE | ~2023-03-29 | MM_ITS ---
EXAMINATION: BONE DENSITOMETRY CLINICAL INDICATION: Unspecified menopausal and perimenopausal disorder. COMPARISON: Previous BD dated 10/03/2012 and baseline BD dated 08/29/2007. TECHNIQUE: Using a Spine Wave DXA System (software version: 13.1) manufactured by [employer], dual-energy x-ray absorptiometry was performed of the lumbar spine and left hip. The images are of good technical quality. Summary results are attached. FINDINGS: LEFT FEMUR, NECK: Current: BMD 0.644 g/cm2, Z-score -0.4, T-score -2.8, osteoporosis. Prior: BMD 0.738 g/cm2. Baseline: BMD 0.777 g/cm2. LEFT FEMUR, TOTAL: Current: BMD 0.755 g/cm2, Z-score 0.3, T-score -2.0, osteopenia, 11.9% decrease from previous, 15.5% decrease from baseline (<5% change is not significant). Prior: BMD 0.857 g/cm2. Baseline: BMD 0.893 g/cm2. AP SPINE L1-L4: Current: BMD 0.995 g/cm2, Z-score 0.7, T-score -1.5, osteopenia, 4.6% increase from previous, 3.0% increase from baseline (<5% change is not significant). Prior: BMD 0.951 g/cm2. Baseline: BMD 0.966 g/cm2. IDENTIFIED RISK FACTORS: Early menopause, secondary osteoporosis. HISTORY OF FRACTURE: None listed. MEDICATIONS: Calcium supplements or multivitamin, vitamin D. MM/XR DEXA axial skeleton IMPRESSION: 1. DIAGNOSIS: Osteoporosis based on the lowest T-score value of -2.8 in the femoral neck applying World Health Organization criteria. 2. 10-YEAR FRACTURE RISK PREDICTION, FRAX: According to the guidelines, FRAX calculation should only be performed on patients in the osteopenia bone density category. Therefore, FRAX was not performed on this patient. 3. Treatment Recommendations: NOF guidelines recommend consideration for treatment in postmenopausal women and men age 50 and older presenting with the following: -A hip or vertebral (clinical or morphometric) fracture. -T-score less than or equal to -2.5 at the femoral neck or spine after appropriate evaluation to exclude secondary causes. -Low bone mass at the hip or spine and a 10-year fracture probability by FRAX of greater than or equal to 3% for hip fracture or greater than or equal to 20% for major osteoporotic fracture based on the [place] adapted WHO algorithm. 4. Other Recommendations: All treatment decisions require clinical judgment and consideration of individual patient factors, including patient preferences, comorbidities, previous drug use, risk factors not captured in the FRAX model (e.g. frailty, falls, vitamin D deficiency, increased bone turnover, interval significant decline in bone density) and possible under or overestimation of fracture risk by FRAX. Additional medical evaluation for secondary cause of low bone mineral density may be appropriate. FUTURE SCAN RECOMMENDATION: People with diagnosed cases of osteoporosis or at high risk for fracture should have regular bone mineral density tests. For patients eligible for Medicare, routine testing is allowed once every 2 years. The testing frequency can be increased to one year for patients who have rapidly progressing disease, those who are receiving or discontinuing medical therapy to restore bone mass, or have additional risk factors.
== END 2023-03-29 08:04 | disposition home or self-care (01) ==
LOC: HO.MAMMO 08:03
PROVIDERS: PCP Internal Medicine; Visit Provider Internal Medicine
DX: Z12.31 Encounter for screening mammogram for malignant neoplasm of breast (principal); Z13.820 Encounter for screening for osteoporosis; Z78.0 Asymptomatic menopausal state
CPT/HCPCS: 77063; 77067; 77080

== ENCOUNTER → 2023-03-29 08:45 | Outpatient (BNV) | payer OTHER, SELFPAY | PROVIDERS: PCP Internal Medicine; Visit Provider Radiology Diagnostic Radiology | DX: Z12.31 Encounter for screening mammogram for malignant neoplasm of breast (principal) | CPT/HCPCS: 77063; 77067 ==

== ENCOUNTER 2023-05-13 07:24 | Outpatient (REF) | payer OTHER, SELFPAY ==
[2023-05-13 07:44] LABS: MANUAL DIFF FLAG NO
[2023-05-13 08:16] LABS: Basophils Percent Auto 0.6 % (0-2); Eosinophils Absolute Auto 0.2 X10*3/uL (0.0-0.4); Eosinophils Percent Auto 3.2 % (0-4); Hematocrit 36.5 % (37.0-47.0); Hemoglobin 11.6 g/dl (12.0-16.0); Imm Gran Abs Auto 0.02 X10*3/uL (0.00-0.03); Imm Gran Pct Auto 0.3 % (0.0-0.4); Lymphocytes Absolute Auto 1.8 X10*3/uL (1.2-4.9); Lymphocytes Percent Auto 28.6 % (20-40); Mean Corpuscular HGB Conc 31.8 g/dl (31.0-35.0); Mean Corpuscular Hemoglobin 30.9 pg (27.0-33.0); Mean Corpuscular Volume 97.3 fL (80.0-98.0); Mean Platelet Volume 8.6 fL (9.4-12.3); Monocytes Absolute Auto 0.5 X10*3/uL (0.1-1.2); Monocytes Percent Auto 7.9 % (2-11); Neutrophils Absolute Auto 3.7 x10*3/uL (2.0-8.3); Neutrophils Percent Auto 59.4 % (45-73); Platelet Count 299 X10*3/uL (160-400); Red Blood Count 3.75 X10*6/uL (4.20-5.50); Red Cell Distribution Width 12.7 % (11.0-16.0); White Blood Count 6.2 X10*3/uL (4.8-10.8)
[2023-05-13 08:59] LABS: Alanine Aminotransferase 11 U/L (0-31); Albumin Level 3.8 g/dL (3.5-5.0); Alkaline Phosphatase 85 U/L (39-117); Anion Gap 11 (12-20); Aspartate Amino Transferase 23 U/L (5-31); Bilirubin Total 0.3 mg/dL (0.0-1.0); Blood Urea Nitrogen 21 mg/dL (9-16); Calcium 9.5 mg/dL (8.4-10.2); Carbon Dioxide 27 mmol/L (22-29); Chloride 109 mmol/L (96-108); Cholesterol 179 mg/dL; Estimated Glomerular Filt Rate 31; Glucose Fasting 82 mg/dL (60-99); HDL Cholesterol 65 mg/dL; LDL Cholesterol Calculated 96 mg/dl; Potassium 4.5 mmol/L (3.3-5.1); Sodium 142 mmol/L (135-145); Triglycerides 90 mg/dL
[2023-05-13 09:07] LABS: Vitamin D 25-OH Total 45.6 ng/mL (>30)
[2023-05-13 09:15] LABS: Vitamin B12 927 pg/mL (200-900)
== END 2023-05-13 07:25 | disposition home or self-care (01) ==
LOC: HO.LAB 07:24
PROVIDERS: PCP Internal Medicine; Visit Provider Internal Medicine
DX: E53.8 Deficiency of other specified B group vitamins (principal); E78.5 Hyperlipidemia, unspecified; D64.9 Anemia, unspecified; G43.909 Migraine, unspecified, not intractable, without status migrainosus; N18.4 Chronic kidney disease, stage 4 (severe); E55.9 Vitamin D deficiency, unspecified
CPT/HCPCS: 36415; 80053; 80061; 82306; 82607; 82746; 85025

== ENCOUNTER 2023-05-14 08:30 | Outpatient (AMB) | payer OTHER, SELFPAY ==
--- NOTE | 2023-05-14 08:34 | MHC.PC.OV ---
Vital Signs 05/14/23 08:35 05/14/23 10:00 Height 5 ft 3 in Weight 122 lb BMI 21.6 BP 168/100 H 160/90 H Blood Pressure Location Lt brachial Lt brachial Position Sitting Sitting Intake Visit Reasons: PE Intake Note: Patient here for a physical exam Manager Security And Safety Required: No Accompanied by: Self / Same As Patient Allergies trazodone Allergy (Intermediate, Verified 05/14/23 08:46) nausea Medication List - Last Reconciled 05/14/23 by Socorro Short MD acetaminophen 500 mg PO Q6H PRN 30 days amlodipine 5 mg PO DAILY 90 days atorvastatin 80 mg PO DAILY 90 days calcium carbonate-vitamin D3 600 mg-10 mcg (400 unit) 1 tab PO DAILY cetirizine 10 mg PO DAILY 90 days cholecalciferol (vitamin D3) 25 mcg PO DAILY 90 days docusate sodium (DOK) 100 mg PO BID PRN 90 days fluoxetine 40 mg PO QAM 90 days fluticasone propionate 50 mcg/actuation (Flonase Allergy Relief) 1 spray intranasal DAILY 30 days vartpkdbxcp-rquhhphqe-pzdzohtn 200-62.5-25 mcg (Trelegy Ellipta) 1 ea PO DAILY 60 days meclizine 25 mg PO DAILY PRN 30 days omeprazole 20 mg PO DAILY 90 days quetiapine 25 mg PO BID 90 days sumatriptan succinate 50 mg PO DAILY PRN 90 days zolpidem 10 mg PO BEDTIME PRN 30 days Tobacco use date assessed: 10/04/22 Fall risk assessment: No Falls in past year Last assessed Fall Risk: 05/14/23 Dental Screening Dental Screen Date: 05/14/23 Did you have a dental visit in the last 12 months?: No Did you have a dental problem in the last 6 months where you did not have access to dental care?: No Was dental information given to patient?: Patient declined HPI HPI Comments History of Present Illness Details This is an 82-year-old female with chronic kidney disease stage 3, asthma-COPD overlap syndrome and moderate recurrent major depression that comes for her physical exam. Her GFR has improved from 29-31. She is aware she has to avoid NSAIDs. Has asthma-COPD overlap syndrome follow by pulmonology that is well controlled with Trelegy. She still smokes and was advised to quit. Depression stable with SSRIs. Last mammogram was 2022 and was normal. Bone density in 2022 shows osteoporosis and has follow-up appointments with rheumatology in June regarding this matter. No need for colonoscopy due to age. [facility] Medical History Anxiety CKD (chronic kidney disease) stage 4, GFR 15-29 ml/min GERD (gastroesophageal reflux disease) Insomnia Mandible pain Migraines Moderate recurrent major depression Pure hypercholesterolemia Surgical History H/O rectal polypectomy History of bilateral cataract extraction History of cholecystectomy History of repair of rectocele History of sinus surgery Family History Father Cancer Mother Pancreatic cancer Brother Pancreatic cancer Daughter Breast cancer Family/Other FH: mental illness Substance use disorder Maternal Grandmother Diabetes Social History Housing: Apartment Alcohol intake: never Patient Tobacco Use Status: Current everyday Tobacco user Tobacco use type: Cigarette Cigarettes Per Day: 3 e-Cigarette/Vaping Use: Never Used Second Hand Smoke Exposure: No service: No Current occupational status: disabled Cognitive needs: Yes Hearing needs: No Vision needs: Yes Questionnaire Thrive Questionnaire Date Thrive assessed: 10/04/22 JAN-7 AMB Questionnaire JAN-7 Date JAN - 7 assessed: 10/04/22 Source: Developed by Drs. Nimesh Schumacher, Leisa Austin, Marshall Blum and colleagues, with an educational rhianna from [employer]. Review of Systems Const All systems reviewed & are unremarkable except as noted in HPI and below Eyes Reports no additional complaints, Denies change in vision and Denies other visual disturbances Card Denies chest pain at rest, Denies chest pain with activity, Denies edema, Denies irregular heart rhythm, Denies claudication, Denies dyspnea, Denies dyspnea on exertion, Denies orthopnea, Denies paroxysmal nocturnal dyspnea and Denies slow heart rate Resp Denies cough, Denies dyspnea and Denies dyspnea on exertion GI Denies abdominal pain, Denies change in bowel habits, Denies excessive flatus, Denies nausea and Denies vomiting Denies urinary incontinence, Denies urinary hesitancy and Denies urinary urgency Musc Denies abnormal gait, Reports back pain, Denies atrophy, Denies deformity, Reports arthralgias and Denies limited range of motion Skin/Breast Denies bleeding lesions, Denies changing lesions and Denies rash Neuro Denies abnormal gait and Denies lack of coordination Physical exam (Primary Care) Vital Signs: Last Vital Signs BP 168/100 H 05/14/23 08:35 BMI result Body Mass Index 21.6 Tobacco/Smoking Status: Tobacco use Status Tobacco use date assessed 10/04/22 05/14/23 08:41 Patient Tobacco Use Status Current everyday Tobacco 05/14/23 08:41 Tobacco use type Cigarette 05/14/23 08:41 e-Cigarette/Vaping Use Never Used 05/14/23 08:41 Thrive Assessment: Date of Thrive Assessment Date Thrive assessed 10/04/22 05/14/23 08:41 Const Orientation/consciousness: patient oriented x3 HENMT Head: Yes normal to inspection, Yes normocephalic and Yes atraumatic Ears: external ears normal Eyes General: appearance normal, both eyes and all related structures Eyelids: Yes eyelids normal Conjunctivae: conjunctivae normal Neck Neck: Yes normal visual inspection and Yes supple Resp Effort & Inspection: normal respiratory effort Auscultation: clear to auscultation bilaterally Cardio Jugular venous distension: no JVD Rate: regular rate Rhythm: regular rhythm Heart sounds: S1 normal heart sound present and S2 normal heart sound present GI Inspection: Yes normal to inspection Palpation (GI): Soft to palpation and nontender Auscultation: normal bowel sounds Skin General skin exam: no rashes or lesions noted Neuro General: patient oriented x3 and no focal motor deficits Extrem General: Yes full ROM Psych Appearance: grossly normal Immunizations pneumoc 20-anna conj-dip cr(PF) Performing Provider: Socorro Short MD Administered by: MARLENE Ellis on 05/14/23 09:08 Dose Route Admin Location Lot Number Expiration Date NDC Yarding Supervisor 0.5 mL IM Right Deltoid [id number] 05/24/24 3203-9242-67 [employer] VIS Given Date VIS Provided VIS Publication Date 05/14/23 Single Vaccine 21 Eligibility Eligibility Date Funding Source Not [facility] Eligible 05/14/23 Private tetanus-diphtheria toxoids-Td Performing Provider: Socorro Short MD Administered by: MARLENE Ellis on 05/14/23 09:08 Dose Route Admin Location Lot Number Expiration Date NDC Yarding Supervisor 0.5 mL IM Left Deltoid [id number] 01/27/24 [id number] [employer] VIS Given Date VIS Provided VIS Publication Date 05/14/23 Single Vaccine 21 Eligibility Eligibility Date Funding Source Not [facility] Eligible 05/14/23 State funds Assessment and Plan Assessment & Plan (1) Physical exam: Code(s): Z00.00 - Encounter for general adult medical examination without abnormal findings Plan: Repeat in a year (2) CKD (chronic kidney disease) stage 3, GFR 30-59 ml/min: Code(s): N18.30 - Chronic kidney disease, stage 3 unspecified Plan: Avoid NSAIDs. Keep blood pressure less than 130/80. Blood pressure was elevated today and will be recheck in 3 weeks by nurse navigator. She forgot to take her amlodipine today. (3) Moderate recurrent major depression: Code(s): F33.1 - Major depressive disorder, recurrent, moderate Plan: Continue SSRIs. (4) Asthma-COPD overlap syndrome: Code(s): J44.9 - Chronic obstructive pulmonary disease, unspecified Plan: Use rescue inhaler as needed. Continue Trelegy. Orders: Orders Comprehensive [place]. Panel Fast 4 Months N18.30 - Chronic kidney disease, stage 3 unspecified IRON PROFILE 4 Months D64.9 - Anemia, unspecified Lipid Panel 4 Months E78.5 - Hyperlipidemia, unspecified Vitamin D 25-OH Total 4 Months E55.9 - Vitamin D deficiency, unspecified Complete Blood Count Auto Diff 4 Months D64.9 - Anemia, unspecified Pneumococcal 20 Immunization Today Z23 - Encounter for immunization Td State Immunization Today Z23 - Encounter for immunization Referrals Nephrology Referral N18.30 - Chronic kidney disease, stage 3 unspecified Coding Level of Care Code Est Pt Prev Care >65y(00706) Diagnoses Physical exam Z00.00 CKD (chronic kidney disease) stage 3, GFR 30-59 ml/min N18.30 Moderate recurrent major depression F33.1 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 Time Spent (min) 36
[2023-05-14 08:35] VITALS: BP 168/100; BMI 21.6
[2023-05-14 10:00] VITALS: BP 160/90
== END 2023-05-14 09:54 | disposition home or self-care (01) ==
PROVIDERS: PCP Internal Medicine; Visit Provider Internal Medicine
DX: Z00.00 Encounter for general adult medical examination without abnormal findings (principal); N18.30 Chronic kidney disease, stage 3 unspecified; F33.1 Major depressive disorder, recurrent, moderate; J44.9 Chronic obstructive pulmonary disease, unspecified; Z23 Encounter for immunization
CPT/HCPCS: 90471; 90677; 90714; 99397

== ENCOUNTER 2023-08-29 09:44 | Outpatient (AMB) | payer OTHER, SELFPAY ==
[2023-08-29 09:57] VITALS: BP 118/72; PULSE 71; O2SAT 96; BMI 22.3
--- NOTE | 2023-08-29 09:57 | MHC.OFFVIS ---
Intake Vital Signs 08/29/23 09:57 Height 5 ft 3 in Weight 125 lb 10.616 oz BMI 22.3 BP 118/72 Blood Pressure Location Rt brachial Position Sitting Pulse 71 Pulse Source Doppler Pulse Oximetry (%) 96 Oxygen Delivery Method Room Air Intake Visit Reasons: COPD Trapeze Performer Required: Yes Trapeze Performer Name: Bebe Josesito Deal Allergies trazodone Allergy (Intermediate, Verified 08/29/23 10:01) nausea HPI COPD HPI Details 82-year-old lady, active approximately 20 pack year smoker, followed for underlying? asthma COPD overlap syndrome, pulmonary nodules, and dyspnea on exertion.? She continues on Trelegy with good control of her underlying symptoms.? She denies any recent acute exacerbations. Patient has not completed her follow-up CT chest. REPLACED BY [facility] Medical History Anxiety CKD (chronic kidney disease) stage 4, GFR 15-29 ml/min GERD (gastroesophageal reflux disease) Insomnia Mandible pain Migraines Moderate recurrent major depression Pure hypercholesterolemia Surgical History H/O rectal polypectomy History of cholecystectomy History of repair of rectocele History of bilateral cataract extraction History of sinus surgery Family History Father Cancer Mother Pancreatic cancer Brother Pancreatic cancer Daughter Breast cancer Family/Other FH: mental illness Substance use disorder Maternal Grandmother Diabetes Social History Housing: Apartment Alcohol intake: never Patient Tobacco Use Status: Current everyday Tobacco user Tobacco use type: Cigarette Cigarettes Per Day: 3 e-Cigarette/Vaping Use: Never Used Second Hand Smoke Exposure: No service: No Current occupational status: disabled Cognitive needs: Yes Hearing needs: No Vision needs: Yes Review of Systems Const Denies daytime sleepiness, Denies excessive sweating, Denies fatigue, Denies fever(s), Denies lethargy, Denies malaise, Denies night sweats, Denies snoring and Denies weight loss Eyes Denies blurry vision and Denies itchy eyes ENT Denies nasal congestion, Denies post nasal drip, Denies sinus pain, Denies sinus pressure and Denies other ( Thrush) Card Denies chest pain, Denies pedal edema, Denies dyspnea, Denies orthopnea and Denies paroxysmal nocturnal dyspnea Resp Denies cough, Denies hemoptysis, Denies excessive phlegm production, Denies dyspnea, Denies snoring and Denies wheezing GI Denies abdominal pain and Denies heartburn Musc Denies myalgias, Denies arthralgias and Denies joint swelling Skin/Breast Denies rash Neuro Denies memory loss and Denies seizure-like activity Psych Denies abnormal sleep pattern, Denies anxiety and Denies memory loss Endo Denies excessive sweating, Denies fatigue and Denies heat intolerance Dawson/Lymph Denies easy bruising Aller/Immun Denies itchy eyes, Denies seasonal rhinorrhea and Denies wheezing Physical Exam Vital Signs: Last Vital Signs Pulse 71 08/29/23 09:57 BP 118/72 08/29/23 09:57 Pulse Ox 96 08/29/23 09:57 Oxygen Delivery Method Room Air 08/29/23 09:57 BMI result Body Mass Index 22.3 Const General: no acute distress and alert Nutritional Appearance: not obese Orientation/consciousness: Other orientation findings ( oriented) HEENT Head: Yes atraumatic Eyes General: appearance normal, both eyes and all related structures Sclerae: sclerae normal EOM: EOMs intact bilaterally Neck Neck: Yes supple Lymphatic: no lymphadenopathy noted Resp Effort & Inspection: normal respiratory effort and no use of accessory muscles Auscultation: clear to auscultation bilaterally Cardio Rate: regular rate Rhythm: regular rhythm Heart sounds: no gallops, no murmurs and no rubs Skin General skin exam: other ( warm) Extrem General: No clubbing, No cyanosis and No edema Assessment & Plan Assessment & Plan (1) Asthma-COPD overlap syndrome: Code(s): J44.9 - Chronic obstructive pulmonary disease, unspecified Plan: Well controlled on Trelegy and albuterol MDI. Continue current regimen. (2) Pulmonary nodules: Code(s): R91.8 - Other nonspecific abnormal finding of lung field Plan: Patient has his CT chest. Patient has been encouraged to complete chest imaging. Quality Reporting (2019) Adult ([facility] 138/11/14/68) Smoking risk assessment performed?: Yes Patient Tobacco Use Status: Current everyday Tobacco user Coding Level of Care Code Est Pt Level 4 (03163) Diagnoses 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 Pulmonary nodules R91.8
== END 2023-08-29 10:12 | disposition home or self-care (01) ==
PROVIDERS: PCP Internal Medicine; Visit Provider Internal Medicine Pulmonary Disease
DX: J44.9 Chronic obstructive pulmonary disease, unspecified (principal); R91.8 Other nonspecific abnormal finding of lung field
CPT/HCPCS: 99214

== ENCOUNTER → 2023-08-29 09:44 | Outpatient (BNVA) | payer OTHER, SELFPAY | PROVIDERS: PCP Internal Medicine; Visit Provider Internal Medicine Pulmonary Disease | DX: J44.9 Chronic obstructive pulmonary disease, unspecified (principal); R91.8 Other nonspecific abnormal finding of lung field | CPT/HCPCS: 99212 ==

== ENCOUNTER 2023-09-17 10:09 | Outpatient (AMB) | payer OTHER, SELFPAY ==
--- NOTE | 2023-09-17 10:20 | A.OFFPC_ITS ---
Vital Signs 09/17/23 10:21 Height 5 ft 3 in Weight 123 lb BMI 21.8 BP 132/80 Blood Pressure Location Lt brachial Position Sitting Intake Visit Reasons: bp Tutorial Laboratory Supervisor Required: No Accompanied by: Self / Same As Patient Allergies trazodone Allergy (Intermediate, Verified 09/17/23 10:38) nausea Medication List - Last Reconciled 09/17/23 by Socorro Short MD acetaminophen 500 mg PO Q6H PRN 30 days amlodipine 5 mg PO DAILY 90 days atorvastatin 80 mg PO DAILY 90 days calcium carbonate-vitamin D3 600 mg-10 mcg (400 unit) 1 tab PO DAILY cetirizine 10 mg PO DAILY 90 days cholecalciferol (vitamin D3) 25 mcg PO DAILY 90 days docusate sodium (DOK) 100 mg PO BID PRN 90 days fluoxetine 40 mg PO QAM 90 days fluticasone propionate 50 mcg/actuation (Flonase Allergy Relief) 1 spray in tranasal DAILY 30 days nxtshefbiow-fkceymknw-gdhnubxz 200-62.5-25 mcg (Trelegy Ellipta) 1 ea PO DAILY 60 days meclizine 25 mg PO DAILY PRN 30 days omeprazole 20 mg PO DAILY 90 days quetiapine 25 mg PO BID 90 days sumatriptan succinate 50 mg PO DAILY PRN 90 days zolpidem 10 mg PO BEDTIME PRN 30 days Tobacco use date assessed: 10/04/22 HPI HPI Comments History of Present Illness Details This is an 82-year-old female with hypertension, pure hypercholesterolemia, asthma-COPD overlap syndrome, moderate recurrent major depression, chronic kidney disease stage 3 and osteoporosis that comes today for follow-up on her conditions. Blood pressure stable. Last cholesterol was improved. Asthma-COPD overlap syndrome is follow by pulmonology any stable with longstanding inhaler. Depression well controlled with SSRIs. GFR has mildly improved and she is aware she has to avoid NSAIDs and follow with Nephrology. Bone density done 2022 shows osteoporosis and I will start her on alendronate and refer her to Rheumatology. [facility] Medical History (Updated 09/17/23 @ 10:48 by Socorro Short MD) CKD (chronic kidney disease) stage 4, GFR 15-29 ml/min Mandible pain Moderate recurrent major depression Anxiety Insomnia Migraines GERD (gastroesophageal reflux disease) Pure hypercholesterolemia Surgical History H/O rectal polypectomy History of cholecystectomy History of repair of rectocele History of bilateral cataract extraction History of sinus surgery Family History Father Cancer Mother Pancreatic cancer Brother Pancreatic cancer Daughter Breast cancer Family/Other FH: mental illness Substance use disorder Maternal Grandmother Diabetes Social History Housing: Apartment Alcohol intake: never Patient Tobacco Use Status: Current everyday Tobacco user Tobacco use type: Cigarette Cigarettes Per Day: 3 e-Cigarette/Vaping Use: Never Used Second Hand Smoke Exposure: No service: No Current occupational status: disabled Cognitive needs: Yes Hearing needs: No Vision needs: Yes Questionnaire Thrive Questionnaire Date Thrive assessed: 10/04/22 JAN-7 AMB Questionnaire JAN-7 Date JAN - 7 assessed: 10/04/22 Source: Developed by Drs. Nimesh Schumacher, Leisa Austin, Marshall Blum and colleagues, with an educational rhianna from [employer]. Review of Systems Const All systems reviewed & are unremarkable except as noted in HPI and below Eyes Reports no additional complaints, Denies change in vision and Denies other visual disturbances Card Denies chest pain at rest, Denies chest pain with activity, Denies edema, Denies irregular heart rhythm, Denies claudication, Denies dyspnea, Denies dyspnea on exertion, Denies orthopnea, Denies paroxysmal nocturnal dyspnea and Denies slow heart rate Resp Denies cough, Denies dyspnea and Denies dyspnea on exertion GI Denies abdominal pain, Denies change in bowel habits, Denies excessive flatus, Denies nausea and Denies vomiting Denies urinary incontinence, Denies urinary hesitancy and Denies urinary urgency Musc Denies abnormal gait, Denies atrophy, Denies deformity and Denies limited range of motion Skin/Breast Denies bleeding lesions, Denies changing lesions and Denies rash Neuro Denies abnormal gait and Denies lack of coordination Physical exam (Primary Care) Vital Signs: Last Vital Signs BP 132/80 09/17/23 10:21 BMI result Body Mass Index 21.8 Tobacco/Smoking Status: Tobacco use Status Tobacco use date assessed 01/12/23 12/26/23 10:23 Patient Tobacco Use Status Current everyday Tobacco 09/17/23 10:23 Tobacco use type Cigarette 09/17/23 10:23 e-Cigarette/Vaping Use Never Used 09/17/23 10:23 Thrive Assessment: Date of Thrive Assessment Date Thrive assessed 10/04/22 09/17/23 10:23 Eyes General: appearance normal, both eyes and all related structures Eyelids: Yes eyelids normal Conjunctivae: conjunctivae normal Neck Neck: Yes normal visual inspection and Yes supple Resp Effort & Inspection: normal respiratory effort Auscultation: clear to auscultation bilaterally Cardio Jugular venous distension: no JVD Rate: regular rate Rhythm: regular rhythm Heart sounds: S1 normal heart sound present and S2 normal heart sound present Extrem General: Yes full ROM Office Procedures Flu Questionnaire Does the patient have a severe egg allergy?: No Does the patient have severe life threatening allergies?: No Does the patient have a fever or illness today?: No Has the patient ever had Guillain-[place] Syndrome?: No Has the patient ever had any past reaction to a flu shot?: No Immunizations flu vacc [id number] 6mos up(PF) 60 mcg(15 mcgx4)/0.5 mL IM syringe Performing Provider: Socorro Short MD Performing Location: [facility] Administered by: MARLENE Ellis on 09/17/23 10:28 Dose Route Admin Location Dispensed Lot Number Expiration Date NDC Cast Iron Drain Pipe Layer 0.5 mL IM Left Deltoid 0.5 mL [id number] 03/22/24 72830-638-53 [employer] VIS Given Date VIS Provided VIS Publication Date 09/17/23 Single Vaccine 21 Eligibility Eligibility Date Funding Source Not [facility] Eligible 09/17/23 Private Assessment and Plan Assessment & Plan (1) CKD (chronic kidney disease) stage 3, GFR 30-59 ml/min: Code(s): N18.30 - Chronic kidney disease, stage 3 unspecified Plan: Avoid NSAIDs. Keep blood pressure within goal being less than 130/80. Follow- up with nephrology. (2) Osteoporosis: Code(s): M81.0 - Age-related osteoporosis without current pathological fracture Plan: Start alendronate. (3) Moderate recurrent major depression: Code(s): F33.1 - Major depressive disorder, recurrent, moderate Plan: Continue fluoxetine. (4) Asthma-COPD overlap syndrome: Code(s): J44.9 - Chronic obstructive pulmonary disease, unspecified Plan: Continue Trelegy. Use rescue inhaler as needed. (5) Pure hypercholesterolemia: Code(s): E78.00 - Pure hypercholesterolemia, unspecified Plan: Continue statins. (6) HTN (hypertension): Code(s): I10 - Essential (primary) hypertension Qualifiers: Hypertension type: essential hypertension Qualified Code(s): I10 - Essential (primary) hypertension Plan: Continue amlodipine. Blood pressure goal is equal or less than 130/80. Orders: Orders Influenza [id number] Immunization Today Z23 - Encounter for immunization Lipid Panel Today E78.5 - Hyperlipidemia, unspecified Vitamin D 25-OH Total Today E55.9 - Vitamin D deficiency, unspecified Comprehensive [place]. Panel Fast Today E78.00 - Pure hypercholesterolemia, unspecified Vitamin B12 and Folate Today E53.8 - Deficiency of other specified B group v itamins Complete Blood Count Auto Diff Today D64.9 - Anemia, unspecified IRON PROFILE Today D64.9 - Anemia, unspecified Referrals Rheumatology Referral M81.0 - Age-related osteoporosis without current pathological fracture Podiatry Referral L98.9 - Disorder of the skin and subcutaneous tissue, unspecified Medications: New diclofenac sodium 1% (Arthritis Pain (diclofenac)) apply to single elbow, wrist or hand; for hand includes palm/fingers/back of hand 2 grams topical QID 30 days PRN 100 grams 3RF pain clotrimazole 1% 1 appl topical BID 2 weeks 15 grams 0RF alendronate 70 mg PO QWEEK 90 days 13 tabs 1RF M81.0 - Age-related osteoporosis without current pathological fracture Refilled fluticasone propionate 50 mcg/actuation (Flonase Allergy Relief) administer into each nostril 1 spray intranasal DAILY 30 days 9.9 mL 6RF sumatriptan succinate 50 mg PO DAILY 90 days PRN 27 tabs 1RF migraine headache Coding Level of Care Code Est Pt Level 4 (76946) Diagnoses CKD (chronic kidney disease) stage 3, GFR 30-59 ml/min N18.30 Osteoporosis M81.0 Moderate recurrent major depression F33.1 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 Pure hypercholesterolemia E78.00 Essential hypertension I10 Hypertension type: essential hypertension Time Spent (min) 24
[2023-09-17 10:21] VITALS: BP 132/80; BMI 21.8
== END 2023-09-17 10:54 | disposition home or self-care (01) ==
PROVIDERS: Visit Provider Internal Medicine
DX: Z23 Encounter for immunization (principal); I12.9 Hypertensive chronic kidney disease with stage 1 through stage 4 chronic kidney disease, or unspecified chronic kidney disease; N18.30 Chronic kidney disease, stage 3 unspecified; F33.1 Major depressive disorder, recurrent, moderate; J44.9 Chronic obstructive pulmonary disease, unspecified; E78.00 Pure hypercholesterolemia, unspecified
CPT/HCPCS: 90471; 90686; 99214

== ENCOUNTER 2023-10-24 09:33 | Outpatient (REF) | payer OTHER, SELFPAY ==
[2023-10-24 11:06] LABS: Anion Gap 12 (12-20); Blood Urea Nitrogen 20 mg/dL (9-16); Calcium 9.5 mg/dL (8.4-10.2); Carbon Dioxide 26 mmol/L (22-29); Chloride 108 mmol/L (96-108); Estimated Glomerular Filt Rate 42; Potassium 4.6 mmol/L (3.3-5.1); Sodium 141 mmol/L (135-145)
== END 2023-10-24 09:34 | disposition home or self-care (01) ==
LOC: HO.LAB 09:33
PROVIDERS: Absent Provider Internal Medicine; PCP Internal Medicine; Visit Provider Internal Medicine Hypertension Specialist
DX: N18.30 Chronic kidney disease, stage 3 unspecified (principal)
CPT/HCPCS: 36415; 80051; 82310; 82565; 84520

== ENCOUNTER 2024-01-20 09:15 | Outpatient (AMB) | payer OTHER, SELFPAY ==
--- NOTE | 2024-01-20 09:36 | MHC.PC.OV ---
Vital Signs 01/20/24 09:38 Height 5 ft 3 in Weight 131 lb BMI 23.2 BP 128/70 Blood Pressure Location Lt brachial Position Sitting Intake Visit Reasons: 4mth f/u Intake Note: Patient here for a 4 month follow up Weather Observer Required: No Accompanied by: Self / Same As Patient Allergies trazodone Allergy (Intermediate, Verified 01/20/24 10:00) nausea Medication List - Last Reconciled 01/20/24 by Socorro Short MD acetaminophen 500 mg PO Q6H PRN 30 days alendronate 70 mg PO QWEEK 90 days amlodipine 5 mg PO DAILY 90 days atorvastatin 80 mg PO DAILY 90 days calcium carbonate-vitamin D3 600 mg-10 mcg (400 unit) 1 tab PO DAILY cetirizine 10 mg PO DAILY 90 days cholecalciferol (vitamin D3) 25 mcg PO DAILY 90 days clotrimazole 1% 1 appl topical BID 2 weeks diclofenac sodium 1% (Arthritis Pain (diclofenac)) 2 grams topical QID PRN 30 days docusate sodium (DOK) 100 mg PO BID PRN 90 days fluoxetine 40 mg PO QAM 90 days fluticasone propionate 50 mcg/actuation (Flonase Allergy Relief) 1 spray intranasal DAILY 30 days dciupbusboz-spurysadr-wevdbery 200-62.5-25 mcg (Trelegy Ellipta) 1 ea PO DAILY 60 days meclizine 25 mg PO DAILY PRN 30 days omeprazole 20 mg PO DAILY 90 days quetiapine 25 mg PO BID 90 days sumatriptan succinate 50 mg PO DAILY PRN 90 days zolpidem 10 mg PO BEDTIME PRN 30 days Tobacco use date assessed: 01/20/24 Fall risk assessment: No Falls in past year Last assessed Fall Risk: 01/20/24 Dental Screening Dental Screen Date: 01/20/24 Did you have a dental visit in the last 12 months?: No Did you have a dental problem in the last 6 months where you did not have access to dental care?: No Was dental information given to patient?: Patient has dentist HPI HPI Comments History of Present Illness Details This is an 83-year-old female with hypertension, pure hypercholesterolemia, asthma-COPD overlap syndrome, moderate recurrent major depression and chronic kidney disease stage 3 that comes today for follow-up on her conditions. Blood pressure stable. Last cholesterol was well controlled with statins and reports no side effects. Asthma-COPD overlap syndrome is follow by pulmonology and has been more controlled with Trelegy. Use rescue inhaler about once a month. Depression has markedly improved with fluoxetine and does not follow with Psychiatry. Her GFR has markedly improved to 42 and her chronic kidney disease is follow by Nephrology. [facility] Medical History (Updated 09/17/23 @ 10:48 by Socorro Short MD) CKD (chronic kidney disease) stage 4, GFR 15-29 ml/min Mandible pain Moderate recurrent major depression Anxiety Insomnia Migraines GERD (gastroesophageal reflux disease) Pure hypercholesterolemia Surgical History H/O rectal polypectomy History of cholecystectomy History of repair of rectocele History of bilateral cataract extraction History of sinus surgery Family History (Updated 01/20/24 @ 09:42 by MARLENE Ellis) Father Cancer Mother Pancreatic cancer Brother Pancreatic cancer Daughter Breast cancer Family/Other FH: mental illness Substance use disorder Maternal Grandmother Diabetes Social History Housing: Apartment Alcohol intake: never Patient Tobacco Use Status: Current everyday Tobacco user Tobacco use type: Cigarette Cigarettes Per Day: 3 e-Cigarette/Vaping Use: Never Used Second Hand Smoke Exposure: No service: No Current occupational status: disabled Cognitive needs: Yes Hearing needs: No Vision needs: Yes Questionnaire PHQ-9 Over the last 2 weeks, how often have you been bothered by any of the following problems? 1. Little interest or pleasure in doing things: several days 2. Feeling down, depressed, or hopeless: nearly every day 3. Trouble falling or staying asleep, or sleeping too much: not at all 4. Feeling tired or having little energy: several days 5. Poor appetite or overeating: not at all 6. Feeling bad about yourself - or that you are a failure or have let yourself or your family down: not at all 7. Trouble concentrating on things, such as reading the newspaper or watching television: not at all 8. Moving or speaking so slowly that other people could have noticed. Or the opposite - being so fidgety or restless that you have been moving around a lot more than usual: several days 9. Thoughts that you would be better off or of hurting yourself in some way: not at all Total score: 6 Depression Screening Interpretation: Positive Depression Screening Follow-up: Existing condition and In treatment Depression Screening Done: Yes 46922 - PHQ-9 Billing: Yes Source: Developed by Drs. Nimesh Schumacher, Leisa Austin, Marshall Blum and colleagues, with an educational rhianna from [employer]). Thrive Questionnaire Date Thrive assessed: 01/20/24 I am a: Patient What is your living situation today?: I have a steady place to live Within the past 12 months, did the food you bought not last and you didn't have the money to get more?: Never true Within the past 12 months, did you worry whether your food would run out before you got money to buy more?: Never true Do you have trouble paying for medicines?: No Do you have trouble getting transportation to medical appointments?: No Do you have trouble paying your heating and electricity bill?: No Do you have trouble taking care of your child, family member or friend?: No Do you have trouble with day-to-day activities such as bathing, preparing meals, shopping, managing finances, etc.?: No Are you currently unemployed and looking for a job?: No Are you interested in more education?: No Please select the resources that you would like help with: None Currently or been in a relationship where the following occur: no concerns reported THRIVE Score: 0 AUDIT C Alcohol Use Questionnaire (AUDIT-C) 1. How often do you have a drink containing alcohol?: Never Total Score: 0 JAN-7 AMB Questionnaire JAN-7 Date JAN - 7 assessed: 01/20/24 Feeling nervous, anxious, or on edge: 2 = More than half the days Not being able to stop or control worryin = Not at all Worrying too much about different things: 1 = Several days Trouble relaxin = Not at all Being so restless that it is hard to sit still: 0 = Not at all Becoming easily annoyed or irritable: 2 = More than half the days Feeling afraid as if something awful might happen: 0 = Not at all Total JAN-7 score (0-4 normal; 5-9 mild; 10-14 moderate; 15-21 severe): 5 Source: Developed by Drs. Nimesh Schumacher, Leisa Austin, Marshall Blum and colleagues, with an educational rhianna from [employer]). JAN-7 Assessment Billing JAN-7 Assessment Tool: JAN-7 Assessment 22406 Review of Systems Const All systems reviewed & are unremarkable except as noted in HPI and below Card Denies chest pain at rest, Denies chest pain with activity, Denies edema, Denies irregular heart rhythm, Denies claudication, Denies dyspnea, Denies dyspnea on exertion, Denies orthopnea, Denies paroxysmal nocturnal dyspnea and Denies slow heart rate Resp Denies cough, Denies dyspnea and Denies dyspnea on exertion GI Denies abdominal pain, Denies change in bowel habits, Denies excessive flatus, Denies nausea and Denies vomiting Denies urinary incontinence, Denies urinary hesitancy and Denies urinary urgency Physical exam (Primary Care) Vital Signs: Last Vital Signs BP 128/70 01/20/24 09:38 BMI result Body Mass Index 23.2 Tobacco/Smoking Status: Tobacco use Status Tobacco use date assessed 01/20/24 01/20/24 09:45 Patient Tobacco Use Status Current everyday Tobacco 01/20/24 09:37 Tobacco use type Cigarette 01/20/24 09:37 e-Cigarette/Vaping Use Never Used 01/20/24 09:37 PHQ-9: PHQ-9 Score PHQ-9: Total score 6 01/20/24 10:03 Depression Screening Interpretation: Positive Depression Screening Follow-up: Existing condition and In treatment Thrive Assessment: Date of Thrive Assessment Date Thrive assessed 01/20/24 01/20/24 09:45 Currently or been in a relationship where the following occur: no concerns reported Resp Effort & Inspection: normal respiratory effort Auscultation: clear to auscultation bilaterally Cardio Jugular venous distension: no JVD Rate: regular rate Rhythm: regular rhythm Heart sounds: S1 normal heart sound present and S2 normal heart sound present Extrem General: Yes full ROM Assessment and Plan Assessment & Plan (1) CKD (chronic kidney disease) stage 3, GFR 30-59 ml/min: Code(s): N18.30 - Chronic kidney disease, stage 3 unspecified Plan: Follow-up with nephrology. Avoid NSAIDs. Keep blood pressure within goal. (2) Moderate recurrent major depression: Code(s): F33.1 - Major depressive disorder, recurrent, moderate Plan: Continue fluoxetine. (3) Pure hypercholesterolemia: Code(s): E78.00 - Pure hypercholesterolemia, unspecified Plan: Continue statins. (4) Asthma-COPD overlap syndrome: Code(s): J44.9 - Chronic obstructive pulmonary disease, unspecified Plan: Continue Trelegy. Use rescue inhaler as needed. Follow-up with pulmonology. (5) HTN (hypertension): Code(s): I10 - Essential (primary) hypertension Qualifiers: Hypertension type: essential hypertension Qualified Code(s): I10 - Essential (primary) hypertension Plan: Continue amlodipine. Blood pressure goal is equal or less than 130/80. Orders: Orders Vitamin B12 and Folate 4 Months E53.8 - Deficiency of other specified B group vitamins Complete Blood Count Auto Diff 4 Months D64.9 - Anemia, unspecified IRON PROFILE 4 Months D64.9 - Anemia, unspecified Lipid Panel 4 Months E78.5 - Hyperlipidemia, unspecified Vitamin D 25-OH Total 4 Months E55.9 - Vitamin D deficiency, unspecified Comprehensive [place]. Panel Fast 4 Months N18.30 - Chronic kidney disease, stage 3 unspecified Medications: Refilled fluoxetine 40 mg PO QAM 90 days 90 caps 1RF quetiapine 25 mg PO BID 90 days 180 tabs 1RF Coding Level of Care Code Est Pt Level 4 (15644) Diagnoses CKD (chronic kidney disease) stage 3, GFR 30-59 ml/min N18.30 Moderate recurrent major depression F33.1 Pure hypercholesterolemia E78.00 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 Essential hypertension I10 Hypertension type: essential hypertension Additional Codes JAN-7 Assessment Billing - JAN-7 Assessment Tool: JAN-7 Assessment [id number] ([id number]) Time Spent (min) 25
[2024-01-20 09:38] VITALS: BP 128/70; BMI 23.2
== END 2024-01-20 10:12 | disposition home or self-care (01) ==
PROVIDERS: PCP Internal Medicine; Visit Provider Internal Medicine
DX: I12.9 Hypertensive chronic kidney disease with stage 1 through stage 4 chronic kidney disease, or unspecified chronic kidney disease (principal); N18.30 Chronic kidney disease, stage 3 unspecified; F33.1 Major depressive disorder, recurrent, moderate; J44.9 Chronic obstructive pulmonary disease, unspecified; E78.00 Pure hypercholesterolemia, unspecified
CPT/HCPCS: 99214

== ENCOUNTER 2024-02-03 08:47 | Outpatient (AMB) | payer OTHER, SELFPAY ==
--- NOTE | 2024-02-03 08:56 | HO.NEPHOV_ITS ---
Vital Signs 02/03/24 08:57 Height 5 ft 3 in BP 122/60 Blood Pressure Location Lt brachial Position Sitting Pulse 93 Pulse Source Pulse Oximeter Pulse Oximetry (%) 99 Oxygen Delivery Method Room Air Intake Visit Reasons: R/S 01/27/2024/ LVM Authorization Specialist Required: Yes Authorization Specialist Name: Philip [id number] Accompanied by: Self / Same As Patient Allergies trazodone Allergy (Intermediate, Verified 02/03/24 08:59) nausea HPI Comments Details: Socorro is a pleasant 83-year-old woman with a history of longstanding hypertension and mild CKD. She is here for semiannual follow-up. Overall she is doing very well. She denies any new complaints like headache nausea vomiting. No urinary symptoms no edema. She seems compliant with her medications. Authorization Specialist service was used. [facility] Medical History Anxiety CKD (chronic kidney disease) stage 4, GFR 15-29 ml/min GERD (gastroesophageal reflux disease) Insomnia Mandible pain Migraines Moderate recurrent major depression Pure hypercholesterolemia Surgical History H/O rectal polypectomy History of cholecystectomy History of repair of rectocele History of bilateral cataract extraction History of sinus surgery Family History Father Cancer Mother Pancreatic cancer Brother Pancreatic cancer Daughter Breast cancer Family/Other FH: mental illness Substance use disorder Maternal Grandmother Diabetes Social History Housing: Apartment Alcohol intake: never Patient Tobacco Use Status: Current everyday Tobacco user Tobacco use type: Cigarette Cigarettes Per Day: 3 e-Cigarette/Vaping Use: Never Used Second Hand Smoke Exposure: No service: No Current occupational status: disabled Cognitive needs: Yes Hearing needs: No Vision needs: Yes Physical Exam Vital Signs: Last Vital Signs Pulse 93 02/03/24 08:57 BP 122/60 02/03/24 08:57 Pulse Ox 99 02/03/24 08:57 Oxygen Delivery Method Room Air 02/03/24 08:57 Const General: comfortable Nutritional Appearance: well nourished Orientation/consciousness: patient oriented x3 HEENT Head: No normal to inspection Mouth: moist mucous membranes Neck Neck: Yes supple and Yes no JVD Resp Auscultation: clear to auscultation bilaterally, no rales and rub present Cardio Jugular venous distension: no JVD Palpation: no palpable S3 and no palpable S4 Heart sounds: no rubs GI Palpation (GI): Soft to palpation and nontender Percussion: No Fluid wave present General: Yes no CVA tenderness Back/Spine/Pelvis Back: no CVA tenderness Skin General skin exam: no rashes or lesions noted Neuro General: patient oriented x3 Extrem General: Yes no pedal edema and No clubbing Results Reviewed Nephrology Results: Hgb 11.6 g/dl (12.0-16.0) L 05/13/23 WBC 6.2 X10*3/uL (4.8-10.8) 05/13/23 Plt Count 299 X10*3/uL (160-400) 05/13/23 Sodium 141 mmol/L (135-145) 10/24/23 Potassium 4.6 mmol/L (3.3-5.1) 10/24/23 Chloride 108 mmol/L (96-108) 10/24/23 Carbon Dioxide 26 mmol/L (22-29) 10/24/23 BUN 20 mg/dL (9-16) H 10/24/23 Creatinine 1.23 mg/dL (0.5-1.4) 10/24/23 Calcium 9.5 mg/dL (8.4-10.2) 10/24/23 Assessment & Plan Assessment & Plan (1) CKD (chronic kidney disease) stage 3, GFR 30-59 ml/min: Code(s): N18.30 - Chronic kidney disease, stage 3 unspecified Category: Medical Plan Socorro has stage IIIA CKD in a setting of longstanding hypertension. The renal function is stable at baseline. Goal is to slow the progression of renal disease. Continue to maintain blood pressure less than 130/80. Stay on low-sodium Continue to avoid nephrotoxic agents including NSAIDs. At present blood pressure is at goal. No changes were made to the medications. Workup ordered as outlined. She will follow along with the team. Orders: Orders Complete Blood Count Auto Diff Today N18.30 - Chronic kidney disease, stage 3 unspecified Total Protein Urine Random Today N18.30 - Chronic kidney disease, stage 3 unspecified UA and rflx microscopic Today N18.30 - Chronic kidney disease, stage 3 unspecified Basic Metabolic Panel Today N18.30 - Chronic kidney disease, stage 3 unspecified Creatinine Urine Today N05.9 - Unspecified nephritic syndrome with unspecified morphologic changes, N18.30 - Chronic kidney disease, stage 3 unspecified Coding Level of Care Code Est Pt Level 4 (73318) Diagnoses CKD (chronic kidney disease) stage 3, GFR 30-59 ml/min N18.30
[2024-02-03 08:57] VITALS: BP 122/60; PULSE 93; O2SAT 99
== END 2024-02-03 09:15 | disposition home or self-care (01) ==
PROVIDERS: PCP Internal Medicine; Visit Provider Internal Medicine Hypertension Specialist
DX: N18.30 Chronic kidney disease, stage 3 unspecified (principal)
CPT/HCPCS: 99214

== ENCOUNTER → 2024-02-03 08:47 | Outpatient (BNVA) | payer OTHER, SELFPAY | PROVIDERS: PCP Internal Medicine; Visit Provider Internal Medicine Hypertension Specialist | DX: N18.30 Chronic kidney disease, stage 3 unspecified (principal) | CPT/HCPCS: 99212 ==

== ENCOUNTER 2024-02-26 09:06 | Outpatient (AMB) | payer OTHER, SELFPAY ==
[2024-02-26 09:08] VITALS: BP 122/78; PULSE 80; O2SAT 95; BMI 22.8
--- NOTE | 2024-02-26 09:08 | MHC.OFFVIS ---
Vital Signs 02/26/24 09:08 Height 5 ft 3 in Weight 128 lb 15.527 oz BMI 22.8 BP 122/78 Blood Pressure Location Rt brachial Position Sitting Pulse 80 Pulse Source Doppler Pulse Oximetry (%) 95 Oxygen Delivery Method Room Air Intake Visit Reasons: COPD Machine Inker Required: Yes Machine Inker Name: Bebe Bellamy Say Allergies trazodone Allergy (Intermediate, Verified 02/26/24 09:12) nausea HPI HPI COPD: Details: 82-year-old lady, active approximately 20 pack year smoker, followed for underlying? asthma COPD overlap syndrome, chronic cough, and dyspnea on exertion.? She continues on Trelegy with good control of her underlying symptoms.? She denies any recent acute exacerbations. patient does complain of waxing and waning chronic cough for years that is intermittently productive of yellowish sputum. [facility] Medical History Anxiety CKD (chronic kidney disease) stage 4, GFR 15-29 ml/min GERD (gastroesophageal reflux disease) Insomnia Mandible pain Migraines Moderate recurrent major depression Pure hypercholesterolemia Surgical History H/O rectal polypectomy History of cholecystectomy History of repair of rectocele History of bilateral cataract extraction History of sinus surgery Family History Father Cancer Mother Pancreatic cancer Brother Pancreatic cancer Daughter Breast cancer Family/Other FH: mental illness Substance use disorder Maternal Grandmother Diabetes Social History Housing: Apartment Alcohol intake: never Patient Tobacco Use Status: Current everyday Tobacco user Tobacco use type: Cigarette Cigarettes Per Day: 3 e-Cigarette/Vaping Use: Never Used Second Hand Smoke Exposure: No service: No Current occupational status: disabled Cognitive needs: Yes Hearing needs: No Vision needs: Yes Review of Systems Const Denies daytime sleepiness, Denies excessive sweating, Denies fatigue, Denies fever(s), Denies lethargy, Denies malaise, Denies night sweats, Denies snoring and Denies weight loss Eyes Denies blurry vision and Denies itchy eyes ENT Denies nasal congestion, Denies post nasal drip, Denies sinus pain, Denies sinus pressure and Denies other ( Thrush) Card Denies chest pain, Denies pedal edema, Denies dyspnea, Denies orthopnea and Denies paroxysmal nocturnal dyspnea Resp Reports cough, Denies hemoptysis, Denies excessive phlegm production, Denies dyspnea, Denies snoring and Denies wheezing GI Denies abdominal pain and Denies heartburn Musc Denies myalgias, Denies arthralgias and Denies joint swelling Skin/Breast Denies rash Neuro Denies memory loss and Denies seizure-like activity Psych Denies abnormal sleep pattern, Denies anxiety and Denies memory loss Endo Denies excessive sweating, Denies fatigue and Denies heat intolerance Dawson/Lymph Denies easy bruising Aller/Immun Denies itchy eyes, Denies seasonal rhinorrhea and Denies wheezing Physical Exam Vital Signs: Last Vital Signs Pulse 80 02/26/24 09:08 BP 122/78 02/26/24 09:08 Pulse Ox 95 02/26/24 09:08 Oxygen Delivery Method Room Air 02/26/24 09:08 BMI result Body Mass Index 22.8 Const General: no acute distress and alert Nutritional Appearance: not obese Orientation/consciousness: Other orientation findings ( oriented) HEENT Head: Yes atraumatic Eyes General: appearance normal, both eyes and all related structures Sclerae: sclerae normal EOM: EOMs intact bilaterally Neck Neck: Yes supple Lymphatic: no lymphadenopathy noted Resp Effort & Inspection: normal respiratory effort and no use of accessory muscles Auscultation: clear to auscultation bilaterally Cardio Rate: regular rate Rhythm: regular rhythm Heart sounds: no gallops, no murmurs and no rubs Skin General skin exam: other ( warm) Extrem General: No clubbing, No cyanosis and No edema Quality Reporting (2019) Adult ([facility] 138/11/14/68) Smoking risk assessment performed?: Yes Patient Tobacco Use Status: Current everyday Tobacco user Assessment & Plan Assessment & Plan (1) Cough: Code(s): R05.9 - Cough, unspecified Category: Medical (2) Asthma-COPD overlap syndrome: Code(s): J44.9 - Chronic obstructive pulmonary disease, unspecified Category: Medical (3) Dyspnea on exertion: Code(s): R06.09 - Other forms of dyspnea Category: Medical (4) Environmental allergies: Code(s): Z91.09 - Other allergy status, other than to drugs and biological substances Category: Medical Plan Overall respiratory symptoms are well controlled on trilogy with no significant dyspnea on exertion at this time. continue current regimen of Trelegy and albuterol MDI. Allergic symptoms also controlled on Flonase and Zyrtec. Continue current regimen. Medications: New albuterol sulfate 90 mcg/actuation 2 puffs inhalation Q4-6H PRN 1 inhaler 3RF shortness of breath or cough Refilled lgjawdynppb-yvqzgjggv-dcjcchrl 200-62.5-25 mcg (Trelegy Ellipta) 1 ea PO DAILY 60 ea 6RF 60 days Coding Level of Care Code Est Pt Level 4 (51790) Diagnoses Cough R05.9 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 Dyspnea on exertion R06.09 Environmental allergies Z91.09
== END 2024-02-26 09:22 | disposition home or self-care (01) ==
PROVIDERS: PCP Internal Medicine; Visit Provider Internal Medicine Pulmonary Disease
DX: R05.9 Cough, unspecified (principal); J44.9 Chronic obstructive pulmonary disease, unspecified; R06.09 Other forms of dyspnea; Z91.09 Other allergy status, other than to drugs and biological substances
CPT/HCPCS: 99214

== ENCOUNTER → 2024-02-26 09:06 | Outpatient (BNVA) | payer OTHER, SELFPAY | PROVIDERS: PCP Internal Medicine; Visit Provider Internal Medicine Pulmonary Disease | DX: J44.9 Chronic obstructive pulmonary disease, unspecified (principal); R05.9 Cough, unspecified; R06.09 Other forms of dyspnea; Z91.09 Other allergy status, other than to drugs and biological substances | CPT/HCPCS: 99212 ==

== ENCOUNTER 2024-03-31 08:38 | Outpatient (REF) | payer OTHER, SELFPAY | END 2024-03-31 08:39 | disposition home or self-care (01) | LOC: HO.MAMMO 08:38 | PROVIDERS: PCP Internal Medicine; Visit Provider Internal Medicine | DX: Z12.31 Encounter for screening mammogram for malignant neoplasm of breast (principal) | CPT/HCPCS: 77063; 77067 ==

== ENCOUNTER → 2024-03-31 10:00 | Outpatient (BNV) | payer OTHER, SELFPAY | PROVIDERS: PCP Internal Medicine; Visit Provider Radiology Diagnostic Radiology | DX: Z12.31 Encounter for screening mammogram for malignant neoplasm of breast (principal) | CPT/HCPCS: 77063; 77067 ==

== ENCOUNTER 2024-04-03 08:22 | Outpatient (AMB) | payer OTHER, SELFPAY ==
--- NOTE | 2024-04-03 09:25 | MHC.OFFVIS ---
Vital Signs 04/03/24 09:29 Height 5 ft 3 in Weight 128 lb BMI 22.7 Intake Visit Reasons: OV-Left knee pain-follow up Intake Note: Socorro is an 83 year old female who presents today for a follow up visit of her left knee OA. Left Knee injection in 02/2023 Allergies trazodone Allergy (Intermediate, Verified 02/26/24 09:12) nausea HPI HPI OV-Left knee pain-follow up: Details: Socorro is an 83 year old female who presents today for a follow up visit of her left knee OA. Left Knee injection in 02/2023. She describes pain at night. Injections have been helpful for her. [facility] Medical History CKD (chronic kidney disease) stage 4, GFR 15-29 ml/min Mandible pain Moderate recurrent major depression Anxiety Insomnia Migraines GERD (gastroesophageal reflux disease) Pure hypercholesterolemia Surgical History H/O rectal polypectomy History of cholecystectomy History of repair of rectocele History of bilateral cataract extraction History of sinus surgery Family History Father Cancer Mother Pancreatic cancer Brother Pancreatic cancer Daughter Breast cancer Family/Other FH: mental illness Substance use disorder Maternal Grandmother Diabetes Social History Housing: Apartment Alcohol intake: never Patient Tobacco Use Status: Current everyday Tobacco user Tobacco use type: Cigarette Cigarettes Per Day: 3 e-Cigarette/Vaping Use: Never Used Second Hand Smoke Exposure: No service: No Current occupational status: disabled Cognitive needs: Yes Hearing needs: No Vision needs: Yes Physical Exam Vital Signs: BMI result Body Mass Index 22.7 Const General: no acute distress and alert Orientation/consciousness: patient oriented x3 Neuro General: patient oriented x3 Extrem Other: Mild effusion Mild lateral and medial ttp bilaterally Tenderness at IT band and down lateral aspect of leg 5-125 degrees ROM compared to -5(hyperextension)-130 degrees ROM of the contralateral leg Office Procedures Joint Injection/Drain Joint Injection/Drain Details: Injected 1 mL of Decadron and 3 mL 1% lidocaine and 3 mL of 0.25% Marcaine. Site was prepped using aseptic technique. Patient tolerated the procedure well. Primary Site: right knee Secondary Site: left knee Approach Used: anterolateral Coding 36567 - Large joint 21202 - Glenohumeral/Tronchanteric Bursa/Intraarticular Procedure code (CPT) selection complete Quality Reporting (2019) Adult ([facility] 138/11/14/68) Smoking risk assessment performed?: Yes Patient Tobacco Use Status: Current everyday Tobacco user Assessment & Plan Assessment & Plan (1) Bilateral primary osteoarthritis of knee: Code(s): M17.0 - Bilateral primary osteoarthritis of knee Category: Medical Plan: I injected bilateral knees today. I discussed this with her and recommend she continue regular activity. F/u > 3 mo for repeat injections should pain persist. Coding Level of Care Code Est Pt Level 3 (12090) Diagnoses Bilateral primary osteoarthritis of knee M17.0 CPT Codes Coding - 90419 Large joint: 04572 - Large joint ([id number]) Coding - Joint 7: 17734 - Glenohumeral/Tronchanteric Bursa/Intraarticular ([id number])
[2024-04-03 09:29] VITALS: BMI 22.7
== END 2024-04-03 10:09 | disposition home or self-care (01) ==
PROVIDERS: PCP Internal Medicine; Visit Provider Orthopaedic Surgery
DX: M17.0 Bilateral primary osteoarthritis of knee (principal)
CPT/HCPCS: 20610; 99213

== ENCOUNTER → 2024-04-03 08:22 | Outpatient (BNVA) | payer OTHER, SELFPAY | PROVIDERS: PCP Internal Medicine; Visit Provider Orthopaedic Surgery | DX: M17.0 Bilateral primary osteoarthritis of knee (principal) | CPT/HCPCS: 20610; 99212; J0665; J1100 ==

== ENCOUNTER 2024-05-19 08:31 | Outpatient (AMB) | payer OTHER, SELFPAY ==
--- NOTE | 2024-05-19 08:34 | MHC.PC.OV ---
Vital Signs 05/19/24 08:36 05/19/24 09:41 Height 5 ft 3 in Weight 128 lb 6 oz BMI 22.7 BP 138/92 H 130/80 Blood Pressure Location Lt brachial Lt brachial Position Sitting Sitting Pulse 82 Pulse Source Pulse Oximeter Pulse Oximetry (%) 96 Oxygen Delivery Method Room Air Intake Visit Reasons: Annual Exam Process Maintenance Technician Required: No Accompanied by: Self / Same As Patient Allergies trazodone Allergy (Intermediate, Verified 05/19/24 08:54) nausea Medication List - Last Reconciled 05/19/24 by Socorro Short MD acetaminophen 500 mg PO Q6H PRN 30 days albuterol sulfate 90 mcg/actuation 2 puffs inhalation Q4-6H PRN alendronate 70 mg PO QWEEK 90 days amlodipine 5 mg PO DAILY 90 days atorvastatin 80 mg PO DAILY 90 days calcium carbonate-vitamin D3 600 mg-10 mcg (400 unit) 1 tab PO DAILY cetirizine 10 mg PO DAILY 90 days cholecalciferol (vitamin D3) 25 mcg PO DAILY 90 days clotrimazole 1% 1 appl topical BID 2 weeks diclofenac sodium 1% (Arthritis Pain (diclofenac)) 2 grams topical QID PRN 30 days docusate sodium (DOK) 100 mg PO BID PRN 90 days fluoxetine 40 mg PO QAM 90 days fluticasone propionate 50 mcg/actuation (Flonase Allergy Relief) 1 spray intranasal DAILY 30 days pkizcrxlcpe-mxmsmriew-iqfnvvfw 200-62.5-25 mcg (Trelegy Ellipta) 1 ea PO DAILY 60 days meclizine 25 mg PO DAILY PRN 30 days omeprazole 20 mg PO DAILY 90 days quetiapine 25 mg PO BID 90 days sumatriptan succinate 50 mg PO DAILY PRN 90 days zolpidem 10 mg PO BEDTIME PRN 30 days Tobacco use date assessed: 05/19/24 Fall risk assessment: No Falls in past year Last assessed Fall Risk: 05/19/24 Dental Screening Dental Screen Date: 01/20/24 Did you have a dental visit in the last 12 months?: Yes Did you have a dental problem in the last 6 months where you did not have access to dental care?: No Was dental information given to patient?: Patient has dentist HPI HPI Comments History of Present Illness Details This is an 83-year-old female with hypertension, pure hypercholesterolemia, chronic kidney disease stage 3, moderate major depression and asthma-COPD overlap syndrome that comes today for follow-up on her conditions. Blood pressure stable. Lipid panel was ordered. Last GFR was 42 and she is aware has to avoid NSAIDs. Depression well controlled with SSRIs. She has asthma-COPD overlap syndrome and was advised to quit. She wants to try the patches. Aware she can not smoke while using the patch. She use rescue inhaler 1 to 2 times a month. [facility] Medical History (Updated 05/19/24 @ 09:40 by Socorro Short MD) Mandible pain Moderate recurrent major depression Anxiety Insomnia Migraines GERD (gastroesophageal reflux disease) Pure hypercholesterolemia Surgical History H/O rectal polypectomy History of cholecystectomy History of repair of rectocele History of bilateral cataract extraction History of sinus surgery Family History Father Cancer Mother Pancreatic cancer Brother Pancreatic cancer Daughter Breast cancer Family/Other FH: mental illness Substance use disorder Maternal Grandmother Diabetes Social History Housing: Apartment Alcohol intake: never Patient Tobacco Use Status: Current everyday Tobacco user Tobacco use type: Cigarette Cigarettes Per Day: 3 e-Cigarette/Vaping Use: Never Used Second Hand Smoke Exposure: No service: No Current occupational status: disabled Cognitive needs: Yes Hearing needs: No Vision needs: Yes Questionnaire PHQ-9 Over the last 2 weeks, how often have you been bothered by any of the following problems? 1. Little interest or pleasure in doing things: several days 2. Feeling down, depressed, or hopeless: nearly every day 3. Trouble falling or staying asleep, or sleeping too much: not at all 4. Feeling tired or having little energy: several days 5. Poor appetite or overeating: not at all 6. Feeling bad about yourself - or that you are a failure or have let yourself or your family down: not at all 7. Trouble concentrating on things, such as reading the newspaper or watching television: not at all 8. Moving or speaking so slowly that other people could have noticed. Or the opposite - being so fidgety or restless that you have been moving around a lot more than usual: several days 9. Thoughts that you would be better off or of hurting yourself in some way: not at all Total score: 6 Depression Screening Interpretation: Positive Depression Screening Follow-up: Existing condition, In treatment and Follow-up Visit Requested Depression Screening Done: Yes 95195 - PHQ-9 Billing: Yes Source: Developed by Drs. Nimesh Schumacher, Leisa Austin, Marshall Blum and colleagues, with an educational rhianna from [employer]. Thrive Questionnaire Date Thrive assessed: 05/19/24 I am a: Patient What is your living situation today?: I have a steady place to live Within the past 12 months, did the food you bought not last and you didn't have the money to get more?: Never true Within the past 12 months, did you worry whether your food would run out before you got money to buy more?: Never true Do you have trouble paying for medicines?: No Do you have trouble getting transportation to medical appointments?: No Do you have trouble paying your heating and electricity bill?: No Do you have trouble taking care of your child, family member or friend?: No Do you have trouble with day-to-day activities such as bathing, preparing meals, shopping, managing finances, etc.?: No Are you currently unemployed and looking for a job?: No Are you interested in more education?: No Please select the resources that you would like help with: None Currently or been in a relationship where the following occur: No concerns reported THRIVE Score: 0 AUDIT C Alcohol Use Questionnaire (AUDIT-C) 1. How often do you have a drink containing alcohol?: Never Total Score: 0 Score Reviewed/Action Taken: No JAN-7 AMB Questionnaire JAN-7 Date JAN - 7 assessed: 05/19/24 Feeling nervous, anxious, or on edge: 2 = More than half the days Not being able to stop or control worryin = Not at all Worrying too much about different things: 1 = Several days Trouble relaxin = Not at all Being so restless that it is hard to sit still: 0 = Not at all Becoming easily annoyed or irritable: 2 = More than half the days Feeling afraid as if something awful might happen: 0 = Not at all Total JAN-7 score (0-4 normal; 5-9 mild; 10-14 moderate; 15-21 severe): 5 Source: Developed by Drs. Nimesh Schumacher, Leisa Austin, Marshall Blum and colleagues, with an educational rhianna from [employer]. JAN-7 Assessment Billing JAN-7 Assessment Tool: JAN-7 Assessment 69295 Review of Systems Const All systems reviewed & are unremarkable except as noted in HPI and below Card Denies chest pain at rest, Denies chest pain with activity, Denies edema, Denies irregular heart rhythm, Denies claudication, Denies dyspnea, Denies dyspnea on exertion, Denies orthopnea, Denies paroxysmal nocturnal dyspnea and Denies slow heart rate Resp Denies cough, Denies dyspnea and Denies dyspnea on exertion Physical exam (Primary Care) Vital Signs: Last Vital Signs Pulse 82 05/19/24 08:36 BP 138/92 H 05/19/24 08:36 Pulse Ox 96 05/19/24 08:36 Oxygen Delivery Method Room Air 05/19/24 08:36 BMI result Body Mass Index 22.7 Tobacco/Smoking Status: Tobacco use Status Tobacco use date assessed 05/19/24 05/19/24 08:43 Patient Tobacco Use Status Current everyday Tobacco 05/19/24 08:43 Tobacco use type Cigarette 05/19/24 08:43 e-Cigarette/Vaping Use Never Used 05/19/24 08:43 Are you ready to quit: Yes Tobacco cessation counseling provided: Yes Items discussed: Nicotine replacement Relapse Prevention: discussed the importance of a supportive environment, discussed extending NRT, discussed negative mood or depression after quitting, weight gain after smoking is common and discussed dietary, exercise and/or lifestyle changes Number of minutes spent counselin CPT code: 40807 - 4-10 Minutes PHQ-9: PHQ-9 Score PHQ-9: Total score 6 05/19/24 08:55 Depression Screening Interpretation: Positive Depression Screening Follow-up: Existing condition, In treatment and Follow-up Visit Requested Thrive Assessment: Date of Thrive Assessment Date Thrive assessed 05/19/24 05/19/24 08:43 Currently or been in a relationship where the following occur: No concerns reported Const General: cooperative Resp Effort & Inspection: normal respiratory effort Auscultation: clear to auscultation bilaterally Cardio Jugular venous distension: no JVD Rate: regular rate Rhythm: regular rhythm Heart sounds: S1 normal heart sound present and S2 normal heart sound present Extrem General: Yes full ROM Assessment and Plan Assessment & Plan (1) CKD (chronic kidney disease) stage 3, GFR 30-59 ml/min: Code(s): N18.30 - Chronic kidney disease, stage 3 unspecified Qualifiers: Chronic kidney disease stage 3 subtype: stage 3b (GFR 30-44) Qualified Code(s): N18.32 - Chronic kidney disease, stage 3b Plan: Avoid NSAIDs. Keep blood pressure less than 130/80. (2) Moderate recurrent major depression: Code(s): F33.1 - Major depressive disorder, recurrent, moderate Plan: Continue SSRIs. (3) Asthma-COPD overlap syndrome: Code(s): J44.9 - Chronic obstructive pulmonary disease, unspecified Plan: Continue long-acting inhaler. Use rescue inhaler as needed. (4) HTN (hypertension): Code(s): I10 - Essential (primary) hypertension Qualifiers: Hypertension type: essential hypertension Qualified Code(s): I10 - Essential (primary) hypertension Plan: Continue amlodipine. Blood pressure goal is equal or less than 130/80. (5) Pure hypercholesterolemia: Code(s): E78.00 - Pure hypercholesterolemia, unspecified Plan: Continue statins. Repeat lipid panel. Orders: Orders Vitamin D 25-OH Total Today E55.9 - Vitamin D deficiency, unspecified Complete Blood Count Auto Diff Today D64.9 - Anemia, unspecified Vitamin B12 and Folate Today E53.8 - Deficiency of other specified B group vitamins IRON PROFILE Today D64.9 - Anemia, unspecified Lipid Panel Today E78.5 - Hyperlipidemia, unspecified Comprehensive [place]. Panel Fast Today N18.30 - Chronic kidney disease, stage 3 unspecified Medications: New nicotine 1 patch transdermal Q24H 14 days 14 ea 1RF Refilled clotrimazole 1% 1 appl topical BID 2 weeks 15 grams 0RF fluticasone propionate 50 mcg/actuation (Flonase Allergy Relief) administer into each nostril 1 spray intranasal DAILY 30 days 9.9 mL 6RF Coding Level of Care Code Est Pt Level 4 (27385) Complex EM visit Add On G2211 Diagnoses Stage 3b chronic kidney disease N18.32 Chronic kidney disease stage 3 subtype: stage 3b (GFR 30-44) Moderate recurrent major depression F33.1 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 Essential hypertension I10 Hypertension type: essential hypertension Pure hypercholesterolemia E78.00 Additional Codes JAN-7 Assessment Billing - JAN-7 Assessment Tool: JAN-7 Assessment 59394 ([id number]) Vital Signs *Quality* - CPT code: 25565 - 4-10 Minutes ([id number]) Time Spent (min) 25
[2024-05-19 08:36] VITALS: BP 138/92; PULSE 82; O2SAT 96; BMI 22.7
[2024-05-19 09:41] VITALS: BP 130/80
== END 2024-05-19 09:19 | disposition home or self-care (01) ==
PROVIDERS: PCP Internal Medicine; Visit Provider Internal Medicine
DX: I12.9 Hypertensive chronic kidney disease with stage 1 through stage 4 chronic kidney disease, or unspecified chronic kidney disease (principal); N18.32 Chronic kidney disease, stage 3b; F33.1 Major depressive disorder, recurrent, moderate; J44.9 Chronic obstructive pulmonary disease, unspecified; E78.00 Pure hypercholesterolemia, unspecified; F17.210 Nicotine dependence, cigarettes, uncomplicated
CPT/HCPCS: 99214; 99406; G2211

== ENCOUNTER 2024-07-09 09:25 | Outpatient (AMB) | payer OTHER, SELFPAY ==
--- NOTE | 2024-07-09 09:55 | MHC.OFFVIS ---
Intake Visit Reasons: bilateral knee injections - last done 04/03/24 Intake Note: Socorro is an 83 year old female who presents today for repeat injection in her bilateral knees for her bilateral knee OA. Last injections done on 04/03/24 in both of her knees. Allergies trazodone Allergy (Intermediate, Verified 05/19/24 08:54) nausea HPI HPI bilateral knee injections - last done 04/03/24: Details: Socorro is an 83 year old female who presents today for repeat injection in her bilateral knees for her bilateral knee OA. Last injections done on 04/03/24 in both of her knees. Patient reports that the injections were helpful but they have worn off. [facility] Medical History (Updated 05/19/24 @ 09:40 by Socorro Short MD) Mandible pain Moderate recurrent major depression Anxiety Insomnia Migraines GERD (gastroesophageal reflux disease) Pure hypercholesterolemia Surgical History H/O rectal polypectomy History of cholecystectomy History of repair of rectocele History of bilateral cataract extraction History of sinus surgery Family History Father Cancer Mother Pancreatic cancer Brother Pancreatic cancer Daughter Breast cancer Family/Other FH: mental illness Substance use disorder Maternal Grandmother Diabetes Social History Housing: Apartment Alcohol intake: never Patient Tobacco Use Status: Current everyday Tobacco user Tobacco use type: Cigarette Cigarettes Per Day: 3 e-Cigarette/Vaping Use: Never Used Second Hand Smoke Exposure: No service: No Current occupational status: disabled Cognitive needs: Yes Hearing needs: No Vision needs: Yes Physical Exam Const General: no acute distress and alert Orientation/consciousness: patient oriented x3 Neuro General: patient oriented x3 Extrem Other: Mild effusion Mild lateral and medial ttp bilaterally Tenderness at IT band and down lateral aspect of leg 5-125 degrees ROM compared to -5(hyperextension)-130 degrees ROM of the contralateral leg Office Procedures Joint Injection/Aspiration Joint Injection/Aspiration Details: Injected 1 mL of Decadron and 3 mL 1% lidocaine and 3 mL of 0.25% Marcaine. Site was prepped using aseptic technique. Patient tolerated the procedure well. Primary Site: right knee Secondary Site: left knee Approach Used: anterolateral Coding - Large joint - Glenohumeral/Tronchanteric Bursa/Intraarticular Procedure code (CPT) selection complete Quality Reporting (2019) Adult ([facility] 13811/14/68) Smoking risk assessment performed?: Yes Patient Tobacco Use Status: Current everyday Tobacco user Assessment & Plan Assessment & Plan (1) Bilateral primary osteoarthritis of knee: Code(s): M17.0 - Bilateral primary osteoarthritis of knee Category: Medical Plan: This is an 83-year-old woman with bilateral knee osteoarthritis. I injected both knees again today as this has been helpful for her. She can follow up for repeat injections no sooner than 3 months. Coding Level of Care Code Est Pt Level 3 (01805) Diagnoses Bilateral primary osteoarthritis of knee M17.0 CPT Codes Coding - Large joint: 54579 - Large joint ([id number]) Coding - Joint 7: 94961 - Glenohumeral/Tronchanteric Bursa/Intraarticular ([id number])
== END 2024-07-09 10:11 | disposition home or self-care (01) ==
PROVIDERS: PCP Internal Medicine; Visit Provider Orthopaedic Surgery
DX: M17.0 Bilateral primary osteoarthritis of knee (principal)
CPT/HCPCS: 20610; 99213

== ENCOUNTER → 2024-07-09 09:25 | Outpatient (BNVA) | payer OTHER, SELFPAY | PROVIDERS: PCP Internal Medicine; Visit Provider Orthopaedic Surgery | DX: M17.0 Bilateral primary osteoarthritis of knee (principal) | CPT/HCPCS: 20610; 99212; J0665; J1100; J2003 ==

== ENCOUNTER 2024-08-13 10:12 | Outpatient (REF) | payer OTHER, SELFPAY ==
[2024-08-13 10:32] LABS: MANUAL DIFF FLAG NO
[2024-08-13 10:42] LABS: Basophils Absolute Auto 0.1 X10*3/uL (0.0-0.2); Basophils Percent Auto 0.8 % (0-2); Eosinophils Absolute Auto 0.4 X10*3/uL (0.0-0.4); Eosinophils Percent Auto 5.4 % (0-4); Hematocrit 36.9 % (37.0-47.0); Hemoglobin 12.4 g/dl (12.0-16.0); Imm Gran Abs Auto 0.02 X10*3/uL (0.00-0.03); Imm Gran Pct Auto 0.3 % (0.0-0.4); Lymphocytes Absolute Auto 1.9 X10*3/uL (1.2-4.9); Lymphocytes Percent Auto 28.7 % (20-40); Mean Corpuscular HGB Conc 33.6 g/dl (31.0-35.0); Mean Corpuscular Hemoglobin 31.2 pg (27.0-33.0); Mean Corpuscular Volume 92.9 fL (80.0-98.0); Mean Platelet Volume 8.1 fL (9.4-12.3); Monocytes Absolute Auto 0.5 X10*3/uL (0.1-1.2); Monocytes Percent Auto 7.7 % (2-11); Neutrophils Absolute Auto 3.7 x10*3/uL (2.0-8.3); Neutrophils Percent Auto 57.1 % (45-73); Platelet Count 312 X10*3/uL (160-400); Red Blood Count 3.97 X10*6/uL (4.20-5.50); White Blood Count 6.5 X10*3/uL (4.8-10.8)
[2024-08-13 11:40] LABS: Parathyroid Hormone Intact 120.8 pg/mL (8.7-77.1)
[2024-08-13 11:58] LABS: Anion Gap 12 (12-20); Blood Urea Nitrogen 14 mg/dL (9-16); Calcium 9.6 mg/dL (8.4-10.2); Carbon Dioxide 26 mmol/L (22-29); Chloride 107 mmol/L (96-108); Estimated Glomerular Filt Rate 34; Magnesium 1.8 mg/dL (1.6-2.6); Phosphorus 3.8 mg/dL (2.7-4.5); Potassium 4.4 mmol/L (3.3-5.1); Sodium 141 mmol/L (135-145)
[2024-08-13 12:04] LABS: Vitamin D 25-OH Total 39.5 ng/mL (>30)
[2024-08-13 13:01] LABS: Appearance Urine Cloudy; Color Urine Yellow; Glucose Urine UA Negative (Negative); Leukocyte Esterase Urine Large (3+) (Negative); Nitrite Urine Negative (Negative); Specific Gravity - Urine 1.015 (1.005-1.025); UMIC TRIGGER UA YES; Urine Blood Negative (Negative); Urine Ketones Trace mg/dL (Negative); Urine Protein Trace mg/dL (Neg-Trace)
[2024-08-13 13:13] LABS: Creatinine Urine 203.62 mg/dL; Protein/Creatinine Ratio, Ur 0.08 (<0.2); Total Protein Urine Random 17 mg/dL (<12)
[2024-08-13 13:21] LABS: Bacteria Urine 1+ (None Seen); Hyaline Casts Urine 0-2 /LPF (0-2); RBC Urine 0-2 /HPF (0-2); WBC Clumps Urine Present; WBC Urine >50 /HPF (0-5)
== END 2024-08-13 10:13 | disposition home or self-care (01) ==
LOC: HO.LAB 10:12
PROVIDERS: PCP Internal Medicine; Visit Provider Internal Medicine Nephrology
DX: I12.9 Hypertensive chronic kidney disease with stage 1 through stage 4 chronic kidney disease, or unspecified chronic kidney disease (principal); N18.32 Chronic kidney disease, stage 3b; N18.9 Chronic kidney disease, unspecified
CPT/HCPCS: 36415; 80051; 81001; 81003; 82040; 82043; 82306; 82310; 82565; 82570; 83735; 83970; 84100; 84156; 84520; 85025

== ENCOUNTER 2024-08-17 10:53 | Outpatient (AMB) | payer OTHER, SELFPAY ==
[2024-08-17 11:27] VITALS: BP 120/80; PULSE 112; O2SAT 96; BMI 22.8
--- NOTE | 2024-08-17 11:27 | HO.NEPHOV ---
Vital Signs 08/17/24 11:27 Height 5 ft 3 in Weight 129 lb BMI 22.8 BP 120/80 Blood Pressure Location Rt brachial Position Sitting Pulse 112 H Pulse Source Pulse Oximeter Pulse Oximetry (%) 96 Oxygen Delivery Method Room Air Intake Visit Reasons: Pt missed 08/03/24 appt/ CKD/ LVM Application Internship Required: Yes Application Internship Name: [id number] gen Accompanied by: Self / Same As Patient Allergies trazodone Allergy (Intermediate, Verified 08/17/24 11:29) nausea Medication List - Last Reconciled 08/17/24 by José Hays MD acetaminophen 500 mg PO Q6H PRN 30 days albuterol sulfate 90 mcg/actuation 2 puffs inhalation Q4-6H PRN alendronate 70 mg PO QWEEK 90 days amlodipine 5 mg PO DAILY 90 days atorvastatin 80 mg PO DAILY 90 days calcium carbonate-vitamin D3 600 mg-10 mcg (400 unit) 1 tab PO DAILY cetirizine 10 mg PO DAILY 90 days cholecalciferol (vitamin D3) 25 mcg PO DAILY 90 days clotrimazole 1% 1 appl topical BID 2 weeks diclofenac sodium 1% (Arthritis Pain (diclofenac)) 2 grams topical QID PRN 30 days docusate sodium (DOK) 100 mg PO BID PRN 90 days fluoxetine 40 mg PO QAM 90 days fluticasone propionate 50 mcg/actuation (Flonase Allergy Relief) 1 spray intranasal DAILY 30 days nmvwegerkzh-uwzpgmznx-wvpaixhk 200-62.5-25 mcg (Trelegy Ellipta) 1 ea PO DAILY 60 days meclizine 25 mg PO DAILY PRN 30 days nicotine 1 patch transdermal Q24H 14 days omeprazole 20 mg PO DAILY 90 days quetiapine 25 mg PO BID 90 days sumatriptan succinate 50 mg PO DAILY PRN 90 days zolpidem 10 mg PO BEDTIME PRN 30 days HPI Comments Details: Socorro is a pleasant 83-year-old woman with a history of longstanding hypertension and mild CKD. She is here for semiannual follow-up. Overall she is doing very well. She denies any new complaints like headache nausea vomiting. No urinary symptoms no edema. She seems compliant with her medications. Application Internship service was used. [facility] Medical History (Updated 05/19/24 @ 09:40 by Socorro Short MD) Mandible pain Moderate recurrent major depression Anxiety Insomnia Migraines GERD (gastroesophageal reflux disease) Pure hypercholesterolemia Surgical History H/O rectal polypectomy History of cholecystectomy History of repair of rectocele History of bilateral cataract extraction History of sinus surgery Family History Father Cancer Mother Pancreatic cancer Brother Pancreatic cancer Daughter Breast cancer Family/Other FH: mental illness Substance use disorder Maternal Grandmother Diabetes Social History Housing: Apartment Alcohol intake: never Patient Tobacco Use Status: Current everyday Tobacco user Tobacco use type: Cigarette Cigarettes Per Day: 3 e-Cigarette/Vaping Use: Never Used Second Hand Smoke Exposure: No service: No Current occupational status: disabled Cognitive needs: Yes Hearing needs: No Vision needs: Yes Physical Exam Vital Signs: Last Vital Signs Pulse 112 H 08/17/24 11:27 BP 120/80 08/17/24 11:27 Pulse Ox 96 08/17/24 11:27 Oxygen Delivery Method Room Air 08/17/24 11:27 BMI result Body Mass Index 22.8 Const General: comfortable Nutritional Appearance: well nourished Orientation/consciousness: patient oriented x3 HEENT Head: No normal to inspection Mouth: moist mucous membranes Neck Neck: Yes supple and Yes no JVD Resp Auscultation: clear to auscultation bilaterally, no rales and rub present Cardio Jugular venous distension: no JVD Palpation: no palpable S3 and no palpable S4 Heart sounds: no rubs GI Palpation (GI): Soft to palpation and nontender Percussion: No Fluid wave present General: Yes no CVA tenderness Back/Spine/Pelvis Back: no CVA tenderness Skin General skin exam: no rashes or lesions noted Neuro General: patient oriented x3 Extrem General: Yes no pedal edema and No clubbing Results Reviewed Nephrology Results: Hgb 12.4 g/dl (12.0-16.0) 08/13/24 WBC 6.5 X10*3/uL (4.8-10.8) 08/13/24 Plt Count 312 X10*3/uL (160-400) 08/13/24 Sodium 141 mmol/L (135-145) 08/13/24 Potassium 4.4 mmol/L (3.3-5.1) 08/13/24 Chloride 107 mmol/L (96-108) 08/13/24 Carbon Dioxide 26 mmol/L (22-29) 08/13/24 BUN 14 mg/dL (9-16) 08/13/24 Creatinine 1.46 mg/dL (0.5-1.4) H 08/13/24 Calcium 9.6 mg/dL (8.4-10.2) 08/13/24 Phosphorus 3.8 mg/dL (2.7-4.5) 08/13/24 PTH Intact 120.8 pg/mL (8.7-77.1) H 08/13/24 Urine Protein Trace mg/dL (Neg-Trace) 08/13/24 Urine Creatinine 203.62 mg/dL 08/13/24 Protein/Creatinin Ratio 0.08 (<0.2) 08/13/24 Assessment & Plan Assessment & Plan (1) CKD (chronic kidney disease) stage 3, GFR 30-59 ml/min: Code(s): N18.30 - Chronic kidney disease, stage 3 unspecified Category: Medical Qualifiers: Chronic kidney disease stage 3 subtype: stage 3b (GFR 30-44) Qualified Code(s): N18.32 - Chronic kidney disease, stage 3b Plan Socorro has stage IIIA CKD in a setting of longstanding hypertension. The renal function is stable at baseline. eGFR is around 40-45 ml.mt Goal is to slow the progression of renal disease. Continue to maintain blood pressure less than 130/80. Stay on low-sodium Continue to avoid nephrotoxic agents including NSAIDs. At present blood pressure is acceptable No changes were made to the medications. Mild elevation in intact PTH due to secondary hyperparathyroidism Watch for now May need Calcitriol Orders: Orders Basic Metabolic Panel 6 Months N18.32 - Chronic kidney disease, stage 3b UA and rflx microscopic 6 Months N18.32 - Chronic kidney disease, stage 3b Complete Blood Count no Diff 6 Months N18.32 - Chronic kidney disease, stage 3b Coding Level of Care Code Est Pt Level 4 (36268) Diagnoses Stage 3b chronic kidney disease N18.32 Chronic kidney disease stage 3 subtype: stage 3b (GFR 30-44)
== END 2024-08-17 11:39 | disposition home or self-care (01) ==
PROVIDERS: PCP Internal Medicine; Visit Provider Internal Medicine Hypertension Specialist
DX: N18.32 Chronic kidney disease, stage 3b (principal)
CPT/HCPCS: 99214

== ENCOUNTER → 2024-08-17 10:53 | Outpatient (BNVA) | payer OTHER, SELFPAY | PROVIDERS: PCP Internal Medicine; Visit Provider Internal Medicine Hypertension Specialist | DX: I12.9 Hypertensive chronic kidney disease with stage 1 through stage 4 chronic kidney disease, or unspecified chronic kidney disease (principal); N18.32 Chronic kidney disease, stage 3b | CPT/HCPCS: 99212 ==

== ENCOUNTER 2024-10-15 07:32 | Outpatient (AMB) | payer OTHER, SELFPAY ==
--- OUTSIDE RECORDS SUMMARY | 2024-10-15 07:35 | XMS_ITS | Clinical Summary ---
Author Organization [facility] Address [address] [place] [address] Phone Care Team Providers Care Gag Writer Name Role Phone Unavailable Primary Care Provider Unavailabl e Allergies Active Allergy Reactions Criticality Noted Date Comments Trazodone 05/30/2023 Medications acetaminophen (TYLENOL) 500 MG tablet Take 500 mg by mouth every 6 (six) hours if needed for mild pain Active amLODIPine (NORVASC) 5 MG tablet Take 5 mg by mouth 1 (one) time each day Active atorvastatin (LIPITOR) 80 MG tablet Take 80 mg by mouth 1 (one) time each day Active Calcium Carbonate-Vitam in D 600-10 MG-MCG tablet Take 1 tablet by mouth 1 (one) time each day Active cetirizine (ZyrTEC) 10 MG tablet Take 10 mg by mouth 1 (one) time each day Active Cholecalciferol (Vitamin D) 25 MCG (1000 UT) tablet Take 1 tablet by mouth 1 (one) time each day Active docusate sodium (COLACE) 100 MG capsule Take 100 mg by mouth in the morning and 100 mg in the evening. Active FLUoxetine (PROzac) 40 MG capsule Take 40 mg by mouth 1 (one) time each day Active fluticasone (FLONASE) 50 MCG/ACT nasal spray Administer 1 spray into each nostril 1 (one) time each day Active Fluticasone-Ume clidin-Vilant 200-62.5-25 MCG/ACT aerosol powder Inhale 1 spray 1 (one) time each day Active meclizine (ANTIVERT) 25 MG tablet Take 25 mg by mouth 3 (three) times a day if needed for dizziness Active omeprazole (PriLOSEC) [address] capsule Take 20 mg by mouth 1 (one) time each day Do not crush or chew. Active QUEtiapine (SEROquel) 50 MG tablet Take 25 mg by mouth every night Active SUMAtriptan (IMITREX) 50 MG tablet Take 50 mg by mouth 1 (one) time if needed for migraine May repeat dose once in 2 hours if no relief. Do not exceed 2 doses in 24 hours. Active zolpidem (AMBIEN) 10 MG tablet Take 10 mg by mouth at night if needed for sleep Active Active Problems Problem Noted Date Diagnosed Date Stage 3b chronic kidney disease 08/26/2023 Chronic kidney disease due to benign hypertensio n 08/26/2023 Essential hypertension 08/12/2023 3 Family History Medical History Relation Comments Kidney disease Child Cancer Father Cancer Mother Cancer Sibling Relation Status Comments Child Father Mother Sibling Social History Tobacco Use Types Packs/Day Years Used Date Smoking Tobacco: Every Day Cigarettes Alcohol Use Standard Drinks/Week Comments No 0 (1 standard drink = 0.6 oz pur e alcohol) Comments Unknown Sex and Gender Information Value Date Recorded Sex Assigned at Not on file Legal Sex Female 5:08 PM EST Gender Identity Not on file Sexual Orientation Not on file Last Filed Vital Signs Vital Sign Reading Time Taken Comments Blood Pressure 135/91 07/13/2024 1:00 PM EDT Pulse 90 07/13/2024 1:00 PM EDT Temperature - - Respiratory Rate - - Oxygen Saturation 97% 07/13/2024 1:00 PM EDT Inhaled Oxygen Concentration - - Weight 57.7 kg (127 lb 3.2 oz) 07/13/2024 1:00 P M EDT Height 157.5 cm (5' 2 ) 07/13/2024 1:00 PM EDT Body Mass Index 23.27 07/13/2024 1:00 PM EDT Plan of Treatment Upcoming Encounters Date Type Department Care Team (Late st Contact Info) Description 11/02/2024 2:45 PM EST Office Visit [facility] [address] [place] [address] Koffi Harvey MD [address] [place] [address] Health Maintenance Due Date Last Done Comments Pneumococcal Vaccine: 65+ Ye ars (1 of 2 - PCV) 12/23/1946 Influenza Vaccine (#1) 2024 Hepatitis B Vaccine Aged Out No longe r eligible based on patient's age to complete this topic Procedures Procedure Name Priority Date/Time Associated Diagnosis Comments ALBUMIN, URINE, RANDOM Routine 08/13/2024 12:32 PM EST PROTEIN / CREATININE RATIO, URINE Today 08/13/2024 12:32 PM EST Stage 3b chronic kidney disease (HCC) Essential hypertension Chronic kidney disease due to benign hypertension URINALYSIS WITH MICROSCOPIC Today 08/13/2024 12:32 PM EST Stage 3b chronic kidney disease (HCC) Essential hypertension Chronic kidney disease due to benign hypertension CREATININE, BLOOD Routine 08/13/2024 10: 30 AM EST BUN Routine 08/13/2024 10:30 AM EST ELECTROLYTE PANEL Routine 08/13/2024 10: 30 AM EST PTH, INTACT (HC) Routine 08/13/2024 10:3 0 AM EST CBC AND DIFFERENTIAL Routine 08/13/2024 10:30 AM EST CALCIUM Today 08/13/2024 10:30 AM EST Stage 3b chronic kidney disease (HCC) Essential hypertension Chronic kidney disease due to benign hypertension ALBUMIN Today 08/13/2024 10:30 AM EST Stage 3b chronic kidney disease (HCC) Essential hypertension Chronic kidney disease due to benign hypertension MAGNESIUM Today 08/13/2024 10:30 AM EST Stage 3b chronic kidney disease (HCC) Essential hypertension Chronic kidney disease due to benign hypertension PHOSPHATE ( PHOSPHORUS) Today 08/13/2024 10:30 AM EST Stage 3b chronic kidney disease (HCC) Essential hypertension Chronic kidney disease due to benign hypertension VITAMIN D 25 HYDROXY Today 08/13/2024 10:30 AM EST Stage 3b chronic kidney disease (HCC) Essential hypertension Chronic kidney disease due to benign hypertension from Last 3 Months Results * (ABNORMAL) Protein, Total, Random Urine w/Creatinine (Protein/Creat Ratio) (08/13/2024 12:32 PM EST) Protein Urine Random 17(H) <12 mg/dL See order comments Protein/Creatin ine Ratio, Urine 0.08 <0.2 See order comments Comment: The spot urine protein:creatinine ratio may increase to 0.3 during normal . Urine (Urine, Clean Catch) 08/13/2024 12:32 PM EST 08/13/2024 12:32 PM EST Koffi Harvey MD LAB URINE ORDERABLES Final Re sult Performing Organization Address [facility] de Phone Number [place] See order comments [place] [address] * Albumin, urine, random (08/13/2024 12:32 PM EST) Creatinine, Urine 203.62 mg/dL Se e order comments Urine Microalbumin 45.0 mg/L See order comments Microalbumin/Crea tinine Ratio 22.0 <30 ug/mg cr See order comments Comment: ?Albumin/Creatinine Ratio Reference Ranges: ?Normal: < 30 ug/mg creatinine ?Microalbuminuria: ??30 - 300 ug/mg creatinine Clinical Albuminuria: ??> 300 ug/mg creatinine 08/13/2024 12:3 2 PM EST 08/13/2024 12:32 PM EST us Koffi Harvey MD LAB URINE ORDERABLES Final Re sult Performing Organization Address [facility] de Phone Number [place] See order comments [place] [address] * (ABNORMAL) Urinalysis with microscopic (08/13/2024 12:32 PM EST) Color Urine Yellow See orde r comments Appearance Urine Cloudy See order comments pH Urine 5.0 5.0 - 9.0 See order comments Glucose Urine Negative Negative mg/dL See order comments Blood, Urine Negative Negative See ord er comments Specific [place] Urine 1.015 1.005 - 1.025 See order comments Protein Urine Trace Neg-Trace mg/dL See order comments Ketones, Urine Trace Negative mg/dL See order comments Nitrite, Urine Negative Negative See o rder comments Leukocyte Esterase Urine Large (3+)(A) Negative See order comments RBC, Urine 0-2 0 - 2 /HPF See orde r comments WBC >50(A) 0 - 5 /HPF See order comments WBC Clumps, Urine Present See order comments Squamous Epithelial, Urine 6-10 0 - 2 /HPF See order comments Bacteria, Urine 1+ None Seen See order comments Hyaline Casts, Urine 0-2 0 - 2 /LPF See order comments Urine (Urine, Clean Catch) 08/13/2024 12:32 PM EST 08/13/2024 12:32 PM EST Koffi Harvey MD LAB URINE ORDERABLES Edited R esult - Final Performing Organization Address [facility] de [facility] Number [facility] See order comments [place] [address] * (ABNORMAL) Creatinine (08/13/2024 10:30 AM EST) Creatinine Serum 1.46(H) 0.5 - 1.4 mg/dL See order comments eGFR 34 See order comments Comment: Chronic Kidney Disease: ??Estimated GFR < 60 mL/min/1.73m2 Severe Kidney Disease: ??Estimated GFR < 15 mL/min/1.73m2 08/13/2024 10:3 0 AM EST 08/13/2024 10:30 AM EST Koffi Harvey MD LAB BLOOD ORDERABLES Final Re sult Performing Organization Address [facility] de Phone Number [place] See order comments [place] [address] * (ABNORMAL) PTH, Intact (08/13/2024 10:30 AM EST) Parathyroid Hormone, Intact 120.8(H) 8.7 - 77.1 pg/mL See order comments 08/13/2024 10:3 0 AM EST 08/13/2024 10:30 AM EST Koffi Harvey MD LAB [id number] SOLICITED RESULTS Final Result Performing Organization Address [facility] Phone Number [place] See order comments [place] [address] * Vitamin D 25 Hydroxy (08/13/2024 10:30 AM EST) Vitamin D, 25-Hydroxy 39.5 >30 ng/mL See order comments Comment: Health Based Reference Values* < 20 ??ng/mL ??Deficient 20-30 ng/mL ??Insufficient > 30 ??ng/mL ??Sufficient *Sunil DELUNA. N Engl J Med. 2007;357:266-280 Care must be taken in interpreting Vitamin D results from different laboratories and methodologies. ??Published data demonstrated that results from patients undergoing hemodialysis may show a negative bias when tested with various automated 25-OH vitamin D assays when compared to LC-MS/MS. When testing samples from patients whose predominant form of Vitamin D is Vitamin D2, such as patients receiving Vitamin D2 supplementation, results that are subtherapeutic should be confirmed with another method such as LC-MS/MS. Blood (Blood, Venous) 08/13/2024 10:30 AM EST 08/13/2024 10:30 AM EST Koffi Harvey MD LAB BLOOD ORDERABLES Final Re sult Performing Organization Address [facility] de Phone Number [place] See order comments [place] [address] * (ABNORMAL) CBC and Differential (08/13/2024 10:30 AM EST) WBC 6.5 4.8 - 10.8 X10*3/uL See order comments RBC 3.97(L) 4.20 - 5.50 X10*6/uL See order comments Hgb 12.4 12.0 - 16.0 g/dl See order comments Hematocrit 36.9(L) 37.0 - 47.0 % See order comments MCV 92.9 80.0 - 98.0 fL See order comments MCH 31.2 27.0 - 33.0 pg See order comments MCHC 33.6 31.0 - 35.0 g/dl See order comments RDW 13.0 11.0 - 16.0 % See order comments Platelets 312 160 - 400 X10*3/uL See order comments MPV 8.1(L) 9.4 - 12.3 fL See order comments Neutrophils % Auto 57.1 45 - 73 % See order comments Immature Granulocytes 0.3 0.0 - 0.4 % See order comments Lymphocytes Relative 28.7 20 - 40 % See order comments Monocytes 7.7 2 - 11 % See order comments Eosinophils Relative 5.4(H) 0 - 4 % See order comments Basophils Relative 0.8 0 - 2 % See order comments nRBC Count 0.0 0.0 - 0.2 /100WBC See order comments Neutrophils Absolute 3.7 2.0 - 8.3 x10*3/uL See order comments Immature Grans (Absolute) 0.02 0.00 - 0.03 X10*3/uL See order comments Lymphocytes Absolute 1.9 1.2 - 4.9 X10*3/uL See order comments Monocytes Absolute 0.5 0.1 - 1.2 X10*3/uL See order comments Eosinophils Absolute 0.4 0.0 - 0.4 X10*3/uL See order comments Basophils Absolute 0.1 0.0 - 0.2 X10*3/uL See order comments NRBC Absolute 0.000 0.0 - 0.012 X10*3/uL See order comments 08/13/2024 10:3 0 AM EST 08/13/2024 10:30 AM EST us Koffi Harvey MD LAB BLOOD ORDERABLES Final Re sult [place] See order comments [place] [address] * BUN (08/13/2024 10:30 AM EST) BUN 14 9 - 16 mg/dL See order comments 08/13/2024 10:3 0 AM EST 08/13/2024 10:30 AM EST us Koffi Harvey MD LAB BLOOD ORDERABLES Final Re sult Performing Organization Address [facility] Phone Number [place] See order comments [place] [address] * Phosphorus (08/13/2024 10:30 AM EST) Phosphorus, Serum 3.8 2.7 - 4.5 mg/dL See order comments Blood (Blood, Venous) 08/13/2024 10:30 AM EST 08/13/2024 10:30 AM EST us Koffi Harvey MD LAB BLOOD ORDERABLES Final Re sult Performing Organization Address [facility] Phone Number [place] See order comments [place] [address] * Magnesium (08/13/2024 10:30 AM EST) Magnesium 1.8 1.6 - 2.6 mg/dL See order comments Blood (Blood, Venous) 08/13/2024 10:30 AM EST 08/13/2024 10:30 AM EST us Koffi Harvey MD LAB BLOOD ORDERABLES Final Re sult Performing Organization Address [facility] Phone Number [place] See order comments [place] [address] * Calcium (08/13/2024 10:30 AM EST) Calcium 9.6 8.4 - 10.2 mg/dL See order comments Blood (Blood, Venous) 08/13/2024 10:30 AM EST 08/13/2024 10:30 AM EST Result Amy Harvey MD LAB BLOOD ORDERABLES Final Re sult Performing Organization Address [facility] Phone Number [place] See order comments [place] [address] * Albumin (08/13/2024 10:30 AM EST) Albumin 4.0 3.5 - 5.0 g/dL See order comments Blood (Blood, Venous) 08/13/2024 10:30 AM EST 08/13/2024 10:30 AM EST Koffi Harvey MD LAB BLOOD ORDERABLES Final Re sult [place] See order comments [place] [address] * Electrolyte panel (08/13/2024 10:30 AM EST) Sodium 141 135 - 145 mmol/L See order comments Potassium 4.4 3.3 - 5.1 mmol/L See order comments Chloride 107 96 - 108 mmol/L See order comments Bicarbonate (CO2) 26 22 - 29 mmol/L See order comments Anion Gap 12 12 - 20 See order comments 08/13/2024 10:3 0 AM EST 08/13/2024 10:30 AM EST Koffi Harvey MD LAB BLOOD ORDERABLES Final Re sult Performing Organization Address City/[facility]/ZIP Co de Phone Number [place] See order comments [place] [address] from Last 3 Months Insurance [employer]
[2024-10-15 07:46] VITALS: BP 126/82; BMI 23.4
--- NOTE | 2024-10-15 07:46 | MHC.PC.OV ---
Vital Signs 10/15/24 07:46 Height 5 ft 3 in Weight 132 lb BMI 23.4 BP 126/82 Blood Pressure Location Lt brachial Position Sitting Intake Visit Reasons: 4 month follow up Intake Note: Patient here for a 4 month follow up Salvage Cutter Required: Yes Salvage Cutter Language: Combat Control Manager Name: Socorro Short MD Information Interpreted: non-clinical & clinical Accompanied by: Self / Same As Patient Allergies trazodone Allergy (Intermediate, Verified 10/15/24 08:00) nausea Medication List - Last Reconciled 10/15/24 by Socorro Short MD acetaminophen 500 mg PO Q6H PRN 30 days albuterol sulfate 90 mcg/actuation 2 puffs inhalation Q4-6H PRN alendronate 70 mg PO QWEEK 90 days amlodipine 5 mg PO DAILY 90 days atorvastatin 80 mg PO DAILY 90 days calcium carbonate-vitamin D3 600 mg-10 mcg (400 unit) 1 tab PO DAILY cetirizine 10 mg PO DAILY 90 days cholecalciferol (vitamin D3) 25 mcg PO DAILY 90 days clotrimazole 1% 1 appl topical BID 2 weeks diclofenac sodium 1% (Arthritis Pain (diclofenac)) 2 grams topical QID PRN 30 days docusate sodium (DOK) 100 mg PO BID PRN 90 days fluoxetine 40 mg PO QAM 90 days fluticasone propionate 50 mcg/actuation (Flonase Allergy Relief) 1 spray intranasal DAILY 30 days [id number]-[id number]-[id number] 200-62.5-25 mcg (Trelegy Ellipta) 1 ea PO DAILY 60 days meclizine 25 mg PO DAILY PRN 30 days nicotine 1 patch transdermal Q24H 14 days omeprazole 20 mg PO DAILY 90 days quetiapine 25 mg PO BID 90 days sumatriptan succinate 50 mg PO DAILY PRN 90 days zolpidem 10 mg PO BEDTIME PRN 30 days Tobacco use date assessed: 10/15/24 Fall risk assessment: No Falls in past year Last assessed Fall Risk: 10/15/24 Dental Screening Dental Screen Date: 10/15/24 Did you have a dental visit in the last 12 months?: No Did you have a dental problem in the last 6 months where you did not have access to dental care?: No Was dental information given to patient?: Patient has dentist HPI HPI Comments History of Present Illness Details The patient is an 83-year-old female presenting for a follow-up on chronic kidney disease and management of her multiple chronic conditions. She is currently under the care of a environmental services manager for stage 3 chronic kidney disease, with an upcoming follow-up appointment scheduled for January. The condition was identified as part of her management for essential hypertension, for which she is taking amlodipine 5 mg daily. The hypertension has been reported as fluctuating at times. While her blood pressure is generally controlled with medication, she mentions episodes when it feels unstable. The patient also has a history of hyperlipidemia treated with atorvastatin 80 mg. Additionally, she mentions longstanding osteoporosis, for which she takes alendronate 70 mg once weekly, and recent discussion to possibly renew her bone density assessment. The patient has been managing gastroesophageal reflux disease (GERD) with omeprazole. She also has asthma-COPD overlap syndrome well controlled with Trelegy and follow by pulmonology. Allergic rhinitis is noted, for which she uses a nasal spray, but is currently out, awaiting a renewal sent to [facility]. Depression is treated with fluoxetine 40 mg, and she denies active psychiatric care but is on medications to manage her symptoms. She has chronic constipation managed on an as-needed basis. The patient is further noted to be postmenopausal, with past adherence to mammogram screenings. Beyond chronic conditions, the patient raised issues regarding new pain in her leg, likened to a sensation of heaviness and weakness, which causes difficulty while walking. She is scheduled for an orthopedic appointment soon. [facility] Medical History (Updated 10/15/24 @ 08:18 by Socorro Short MD) Mandible pain Moderate recurrent major depression Anxiety Insomnia Migraines GERD (gastroesophageal reflux disease) Pure hypercholesterolemia Surgical History H/O rectal polypectomy History of cholecystectomy History of repair of rectocele History of bilateral cataract extraction History of sinus surgery Family History Father Cancer Mother Pancreatic cancer Brother Pancreatic cancer Daughter Breast cancer Family/Other FH: mental illness Substance use disorder Maternal Grandmother Diabetes Social History (Updated 10/15/24 @ 08:07 by Socorro Short MD) Housing: Apartment Alcohol intake: never Patient Tobacco Use Status: Former Tobacco user Tobacco use type: Cigarette Cigarettes Per Day: 3 e-Cigarette/Vaping Use: Never Used Second Hand Smoke Exposure: No service: No Current occupational status: disabled Cognitive needs: Yes Hearing needs: No Vision needs: Yes Questionnaire PHQ-9 Over the last 2 weeks, how often have you been bothered by any of the following problems? 1. Little interest or pleasure in doing things: several days 2. Feeling down, depressed, or hopeless: several days 3. Trouble falling or staying asleep, or sleeping too much: not at all 4. Feeling tired or having little energy: several days 5. Poor appetite or overeating: not at all 6. Feeling bad about yourself - or that you are a failure or have let yourself or your family down: not at all 7. Trouble concentrating on things, such as reading the newspaper or watching television: not at all 8. Moving or speaking so slowly that other people could have noticed. Or the opposite - being so fidgety or restless that you have been moving around a lot more than usual: not at all 9. Thoughts that you would be better off or of hurting yourself in some way: not at all Total score: 3 Depression Screening Interpretation: Positive Depression Screening Follow-up: Existing condition, In treatment and Follow-up Visit Requested Depression Screening Done: Yes 84159 - PHQ-9 Billing: Yes Source: Developed by Drs. Nimesh Schumacher, Leisa Austin, Marshall Blum and colleagues, with an educational rhianna from [employer]. Thrive Questionnaire Date Thrive assessed: 10/15/24 I am a: Patient What is your living situation today?: I have a steady place to live Within the past 12 months, did the food you bought not last and you didn't have the money to get more?: Never true Within the past 12 months, did you worry whether your food would run out before you got money to buy more?: Never true Do you have trouble paying for medicines?: No Do you have trouble getting transportation to medical appointments?: No Do you have trouble paying your heating and electricity bill?: No Do you have trouble taking care of your child, family member or friend?: No Do you have trouble with day-to-day activities such as bathing, preparing meals, shopping, managing finances, etc.?: No Are you currently unemployed and looking for a job?: No Are you interested in more education?: No Please select the resources that you would like help with: None Currently or been in a relationship where the following occur: No concerns reported THRIVE Score: 0 AUDIT C Alcohol Use Questionnaire (AUDIT-C) 1. How often do you have a drink containing alcohol?: Never Total Score: 0 JAN-7 AMB Questionnaire JAN-7 Date JAN - 7 assessed: 10/15/24 Feeling nervous, anxious, or on edge: 0 = Not at all Not being able to stop or control worryin = Not at all Worrying too much about different things: 0 = Not at all Trouble relaxin = Not at all Being so restless that it is hard to sit still: 0 = Not at all Becoming easily annoyed or irritable: 0 = Not at all Feeling afraid as if something awful might happen: 0 = Not at all Total JAN-7 score (0-4 normal; 5-9 mild; 10-14 moderate; 15-21 severe): 0 Source: Developed by Drs. Nimesh Schumacher, Leisa Austin, Marshall Blum and colleagues, with an educational rhianna from [employer]. JAN-7 Assessment Billing JAN-7 Assessment Tool: JAN-7 Assessment 01063 Review of Systems Const All systems reviewed & are unremarkable except as noted in HPI and below Card Denies chest pain at rest, Denies chest pain with activity, Denies edema, Denies irregular heart rhythm, Denies claudication, Denies dyspnea, Denies dyspnea on exertion, Denies orthopnea, Denies paroxysmal nocturnal dyspnea and Denies slow heart rate Resp Denies cough, Denies dyspnea and Denies dyspnea on exertion Musc Reports arthralgias Physical exam (Primary Care) Vital Signs: Last Vital Signs BP 126/82 10/15/24 07:46 BMI result Body Mass Index 23.4 Tobacco/Smoking Status: Tobacco use Status Tobacco use date assessed 10/15/24 10/15/24 07:54 Patient Tobacco Use Status Former Tobacco user 10/15/24 08:07 Tobacco use type Cigarette 10/15/24 08:07 e-Cigarette/Vaping Use Never Used 10/15/24 08:07 PHQ-9: PHQ-9 Score PHQ-9: Total score 3 10/15/24 08:03 Depression Screening Interpretation: Positive Depression Screening Follow-up: Existing condition, In treatment and Follow-up Visit Requested Thrive Assessment: Date of Thrive Assessment Date Thrive assessed 10/15/24 10/15/24 07:54 Currently or been in a relationship where the following occur: No concerns reported Resp Effort & Inspection: normal respiratory effort Auscultation: clear to auscultation bilaterally Cardio Jugular venous distension: no JVD Rate: regular rate Rhythm: regular rhythm Heart sounds: S1 normal heart sound present and S2 normal heart sound present Extrem General: Yes full ROM Psych Appearance: grossly normal Office Procedures Flu Questionnaire Does the patient have a severe egg allergy?: No Immunizations Fluarix Triv [id number] (PF) 45 mcg (15 mcg x 3)/0.5 mL IM syringe Performing Provider: Socorro Short MD [facility] Documented (not given) by: MARLENE Ellis on 10/15/24 08:14 Reason Not Given: Patient Refused Coding Level of Care Code Est Pt Level 4 (01619) Complex EM visit Add On G2211 Diagnoses Stage 3b chronic kidney disease N18.32 Chronic kidney disease stage 3 subtype: stage 3b (GFR 30-44) Osteoporosis M81.0 Moderate recurrent major depression F33.1 Anxiety F41.9 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 Pure hypercholesterolemia E78.00 Essential hypertension I10 Hypertension type: essential hypertension Right knee pain M25.561 Gastroesophageal reflux disease, unspecified whether esophagitis present K21.9 Esophagitis presence: esophagitis presence not specified Additional Codes PHQ-9 - 75402 - PHQ-9 Billing: Yes ([id number]) JAN-7 Assessment Billing - JAN-7 Assessment Tool: JAN-7 Assessment 45774 ([id number]) Time Spent (min) 22 Assessment & Plan Assessment & Plan (1) CKD (chronic kidney disease) stage 3, GFR 30-59 ml/min: Code(s): N18.30 - Chronic kidney disease, stage 3 unspecified Category: Medical Qualifiers: Chronic kidney disease stage 3 subtype: stage 3b (GFR 30-44) Qualified Code(s): N18.32 - Chronic kidney disease, stage 3b (2) Osteoporosis: Code(s): M81.0 - Age-related osteoporosis without current pathological fracture Category: Medical (3) Moderate recurrent major depression: Code(s): F33.1 - Major depressive disorder, recurrent, moderate Category: Medical (4) Anxiety: Code(s): F41.9 - Anxiety disorder, unspecified Category: Medical (5) Asthma-COPD overlap syndrome: Code(s): J44.9 - Chronic obstructive pulmonary disease, unspecified Category: Medical (6) Pure hypercholesterolemia: Code(s): E78.00 - Pure hypercholesterolemia, unspecified Category: Medical (7) HTN (hypertension): Code(s): I10 - Essential (primary) hypertension Category: Medical Qualifiers: Hypertension type: essential hypertension Qualified Code(s): I10 - Essential (primary) hypertension (8) Right knee pain: Code(s): M25.561 - Pain in right knee Category: Medical (9) GERD (gastroesophageal reflux disease): Code(s): K21.9 - Gastro-esophageal reflux disease without esophagitis Category: Medical Qualifiers: Esophagitis presence: esophagitis presence not specified Qualified Code(s): K21.9 - Gastro-esophageal reflux disease without esophagitis Plan - Continue nephrology follow-up for chronic kidney disease management. - Renew prescription for amlodipine to maintain consistent control of essential hypertension. - Reinforce medication adherence for atorvastatin, and consider regular lipid panel monitoring. - Schedule DEXA scan to assess bone density for osteoporosis management. - Renew nasal spray prescription for allergic rhinitis through [facility]. - Monitor depression symptoms with current fluoxetine regimen; recommend psychiatric consultation if needed. - Investigate current right knee and leg symptoms with orthopedic consultation, including radiographic imaging if indicated. - Ensure continuation of GERD management with omeprazole and monitor for symptom recurrence. - Educate on avoidance of nephrotoxic medications, particularly NSAIDs, given CKD status. Patient was informed and verbally consented to the use of an ambient scribe for clinic note documentation during this visit. During the visit, we discussed the importance of ongoing management for her chronic kidney disease, hypertension, and osteoporosis. We reviewed her cardiovascular risk factors, emphasizing the importance of medication adherence for managing hypertension and hyperlipidemia. The patient was advised regarding the potential for nephrotoxic effects of certain medications and reinforced the use of Tylenol as an alternative. We discussed her leg symptoms and the need for an orthopedics evaluation, with potential imaging to further assess the issue. The patient's medication list was reviewed, including the need for ongoing treatment for GERD and depression. Discussions were had around her smoking reduction and its positive impact on her health. The importance of regular follow-ups and adherence to prescribed therapy was underscored. Orders: Orders Lipid Panel 4 Months E78.5 - Hyperlipidemia, unspecified XR DEXA axial skeleton 6 Months Z78.0 - Asymptomatic menopausal state XR knee RT 2V Today M25.561 - Pain in right knee Vitamin D 25-OH Total 4 Months E55.9 - Vitamin D deficiency, unspecified Comprehensive Spicer. Panel Fast 4 Months N18.32 - Chronic kidney disease, stage 3b Influenza [id number] Immunization Today Z23 - Encounter for immunization Medications: Refilled zolpidem 10 mg PO BEDTIME 30 days PRN 30 tabs 0RF insomnia omeprazole 20 mg PO DAILY 90 days 90 caps 3RF amlodipine 5 mg PO DAILY 90 days 90 tabs 3RF cetirizine 10 mg PO DAILY 90 days 90 tabs 1RF cholecalciferol (vitamin D3) 25 mcg PO DAILY 90 days 90 tabs 1RF alendronate 70 mg PO QWEEK 90 days 13 tabs 1RF M81.0 - Age-related osteoporosis without current pathological fracture sumatriptan succinate 50 mg PO DAILY 90 days PRN 27 tabs 1RF migraine headache quetiapine 25 mg PO BID 90 days 180 tabs 1RF fluticasone propionate 50 mcg/actuation (Flonase Allergy Relief) administer into each nostril 1 spray intranasal DAILY 30 days 9.9 mL 6RF atorvastatin 80 mg PO DAILY 90 days 90 tabs 3RF calcium carbonate-vitamin D3 600 mg-10 mcg (400 unit) 1 tab PO DAILY 30 tabs 11RF Patient Instructions: - Attend your nephrology follow-up appointment in January. - Take amlodipine daily for blood pressure control; check levels as advised. - Continue atorvastatin for cholesterol management. - Maintain weekly alendronate dosing and return for a follow-up DEXA scan as scheduled. - Use newly prescribed nasal spray for allergies. - Follow up with the orthopedics appointment for leg pain assessment. - Continue taking omeprazole for GERD; return if symptoms persist. - Monitor for any depression symptoms and continue fluoxetine. - Avoid nephrotoxic medications like NSAIDs; use Tylenol instead.
== END 2024-10-15 08:12 | disposition home or self-care (01) ==
PROVIDERS: PCP Internal Medicine; Visit Provider Internal Medicine
DX: I12.9 Hypertensive chronic kidney disease with stage 1 through stage 4 chronic kidney disease, or unspecified chronic kidney disease (principal); N18.32 Chronic kidney disease, stage 3b; F33.1 Major depressive disorder, recurrent, moderate; J44.9 Chronic obstructive pulmonary disease, unspecified; M81.0 Age-related osteoporosis without current pathological fracture; F41.9 Anxiety disorder, unspecified; E78.00 Pure hypercholesterolemia, unspecified; M25.561 Pain in right knee; K21.9 Gastro-esophageal reflux disease without esophagitis

== ENCOUNTER → 2024-10-15 07:32 | Outpatient (BNVA) | payer OTHER, SELFPAY | PROVIDERS: PCP Internal Medicine; Visit Provider Internal Medicine | DX: I12.9 Hypertensive chronic kidney disease with stage 1 through stage 4 chronic kidney disease, or unspecified chronic kidney disease (principal); N18.32 Chronic kidney disease, stage 3b; M81.0 Age-related osteoporosis without current pathological fracture; F33.1 Major depressive disorder, recurrent, moderate; F41.9 Anxiety disorder, unspecified; J44.9 Chronic obstructive pulmonary disease, unspecified; E78.00 Pure hypercholesterolemia, unspecified; M25.561 Pain in right knee; K21.9 Gastro-esophageal reflux disease without esophagitis | CPT/HCPCS: 96127; 99212 ==

== ENCOUNTER 2024-10-22 09:16 | Outpatient (AMB) | payer OTHER, SELFPAY ==
--- NOTE | 2024-10-22 09:22 | MHC.OFFVIS ---
Intake Visit Reasons: bilateral knee injections - last done 07/09/24 Intake Note: Socorro is an 83 year old female who presents today for a follow up of her bilateral knee OA. Her last bilateral knee injections were done 07/09/24. Patient reports that the injections are not helpful for her but she would like to repeat today . Allergies trazodone Allergy (Intermediate, Verified 10/15/24 08:00) nausea HPI HPI bilateral knee injections - last done 07/09/24: Details: Socorro is an 83 year old female who presents today for a follow up of her bilateral knee OA. She has mild left knee pain but severe right knee pain. The previous injection was not helpful. She describes difficulty walking even short distances and worsening malalignment of the leg. She feels the quality of her life is diminished. She can not tolerate the pain and she is very frustrated that she can not walk for even brief periods. [facility] Medical History Mandible pain Moderate recurrent major depression Anxiety Insomnia Migraines GERD (gastroesophageal reflux disease) Pure hypercholesterolemia Surgical History H/O rectal polypectomy History of cholecystectomy History of repair of rectocele History of bilateral cataract extraction History of sinus surgery Family History Father Cancer Mother Pancreatic cancer Brother Pancreatic cancer Daughter Breast cancer Family/Other FH: mental illness Substance use disorder Maternal Grandmother Diabetes Social History (Updated 10/15/24 @ 08:07 by Socorro Short MD) Housing: Apartment Alcohol intake: never Patient Tobacco Use Status: Former Tobacco user Tobacco use type: Cigarette Cigarettes Per Day: 3 e-Cigarette/Vaping Use: Never Used Second Hand Smoke Exposure: No service: No Current occupational status: disabled Cognitive needs: Yes Hearing needs: No Vision needs: Yes Physical Exam Extrem Other: 5-125 degrees of motion Tenderness to palpation medial and lateral joint line 15 degrees of valgus with 1+ valgus instability Quality Reporting (2020) Adult ([facility] 138/2/22/69) Smoking risk assessment performed?: Yes Patient Tobacco Use Status: Former Tobacco user Results Reviewed Results Reviewed: I personally reviewed relevant radiographs. Tricompartmental osteoarthritis right knee, severe. Assessment & Plan Assessment & Plan (1) Localized osteoarthritis of right knee: Code(s): M17.11 - Unilateral primary osteoarthritis, right knee Category: Medical Plan: This is a active 83-year-old woman with severe right knee osteoarthritis and valgus malalignment that is worsening. She can no longer walk comfortably. Injections have not been helpful. She takes nonnarcotic pain medication which also does not help. She feels the quality of her life is diminished. I had a long discussion with her regarding treatment options and we decided that arthroplasty is the best next step. She can not continue to be active in the state she is in and I anticipate worsening malalignment if she is not treated. I discussed the risks, benefits and alternatives of surgery including to, but not limited to, infection, stiffness, aseptic loosening, fracture, continued pain as well as medical complications associated with surgery. She expressed understanding and we will proceed forward accordingly. Coding Level of Care Code Est Pt Level 4 (87026) Diagnoses Localized osteoarthritis of right knee M17.11
--- OUTSIDE RECORDS SUMMARY | 2024-10-22 12:27 | XMS_ITS | Clinical Summary ---
Author Organization [employer] Address [address] [place] [address] Care Team Providers Care Accountant Clerk Name Role Phone Unavailable Primary Care Provider Unavailabl e Allergies Active Allergy Reactions Criticality Noted Date Comments Trazodone 05/30/2023 Medications SUMAtriptan (Imitrex) 50 MG tablet TAKE 1 TABLET BY MOUTH EVERY DAY NEEDED FOR MIGRAINE Active zolpidem (Ambien) 10 MG tablet Take 10 mg by mouth if needed at bedtime for sleep. Active QUEtiapine (SEROquel) 25 MG tablet Take 25 mg by mouth 2 times daily. 4 Active omeprazole (PriLOSEC) [address] capsule Take 20 mg by mouth in the morning. Active meclizine (Antivert) 25 MG tablet TAKE 1 TABLET BY MOUTH EVERY DAY NEEDED FOR DIZZINESS Active Trelegy Ellipta 200-62.5-25 MCG/ACT aerosol powder Inhale 1 puff in the morning. Active fluticasone (Flonase) 50 MCG/ACT nasal spray INSTILL 1 SPRAY IN EACH NOSTRIL ONCE DAILY Active FLUoxetine (PROzac) 40 MG capsule Take 40 mg by mouth in the morning. Active docusate sodium (Colace) 100 MG capsule TAKE 1 CAPSULE BY MOUTH TWICE DAILY NEEDED FOR CONSTIPATION Active Diclofenac Sodium 1 % gel APPLY 2 GRAM TOPICALLY FOUR TIMES DAILY NEEDED FOR PAIN TO ELBOW, wrist OR HAND 4 Active cholecalciferol (Vitamin D3) 25 MCG (1000 UT) tablet Take by mouth in the morning. Active cetirizine (ZyrTEC) 10 MG tablet Take 10 mg by mouth in the morning. Active Calcium + Vitamin D3 600-10 MG-MCG tablet Take 1 tablet by mouth in the morning. 4 Active atorvastatin (Lipitor) 80 MG tablet Take 80 mg by mouth in the morning. Active amLODIPine (Norvasc) 5 MG tablet Take 5 mg by mouth in the morning. Active alendronate (Fosamax) 70 MG tablet take 1 tablet once a week with 6 to 8 oz of water 30 min before first food of day. do not lie down for 30 minutes Active Acetaminophen Extra Strength 500 MG tablet Take 1 tablet by mouth every 6 (six) hours if needed. 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 Social History Tobacco Use Types Packs/Day Years Used Date Smoking Tobacco: Every Day Cigarettes Passive Smoke Exposure: Never Smokeless Tobacco: Former Tobacco Cessation:Ready to Q uit: Not Asked; Counseling Given: Not Answered Alcohol Use Standard Drinks/Week Comments Defer 0 (1 standard drink = 0.6 oz pur e alcohol) Comments Unknown Sex and Gender Information Value Date Recorded Sex Assigned at Female 07/23/2022 10:16 AM EDT Legal Sex Female 10:16 AM EDT Gender Identity Female 07/23/2022 10:16 AM EDT Sexual Orientation Choose not to disclose 2021 10:16 AM EDT Last Filed Vital Signs Vital Sign Reading Time Taken Comments Blood Pressure 125/72 04/06/2021 12:07 AM EDT Pulse - - Temperature - - Respiratory Rate - - Oxygen Saturation - - Inhaled Oxygen Concentration - - Weight - - Height - - Body Mass Index - - Plan of Treatment Health Maintenance Due Date Last Done Comments Dental Prophylaxis 1941 Dental X-Ray: Bitewings 1941 Depression Screening 1941 Lipid Panel 1941 SDOH Screening 1941 Alcohol/Substance Use Screening 1953 Zoster Vaccines (1 of 2) 12/23/1991 RSV Patients and Patients Aged 60 years or older (1 - 1-dose 75+ series) 2016 DTaP/Tdap/Td Vaccines (1 - Tdap) 05/15/2023 05/14/2023, 10/14/2006 Dental X-Ray: Full Mouth 04/01/2024 03/31/2021 COVID-19 Vaccine ( season) 2024 06/20/2021, 05/11/2021 Influenza Vaccine (#1) 2024 , 10/04/2022, 07/18/2020, Additional history exists Dental Oral Exam 11/26/2024 05/28/2024, 03/31/2021 Tobacco Screening 05/28/2025 05/28/2024 Hepatitis B Vaccines Completed 06/23/2008, 05/20/2007, 12/11/2006 Pneumococcal Vaccine: 50+ Years Completed 05/14/2023, 01/31/2016, 07/05/2009 HIB Vaccines Aged Out No longer eligi ble based on patient's age to complete this topic HPV Vaccines Aged Out No longer eligi ble based on patient's age to complete this topic Hepatitis A Vaccines Aged Out No long er eligible based on patient's age to complete this topic IPV Vaccines Aged Out No longer eligi ble based on patient's age to complete this topic Meningococcal Vaccine Aged Out No jorge zach eligible based on patient's age to complete this topic RSV under 20 months Aged Out No longe r eligible based on patient's age to complete this topic Rotavirus Vaccines Aged Out No longer eligible based on patient's age to complete this topic Procedures Procedure Name Priority Date/Time Associated Diagnosis Comments PERIODIC ORAL EVALUATION - ESTABLISHED PATIENT Routine 05/28/2024 10:00 AM EDT PANORAMIC RADIOGRAPHIC IMAGE Routine 03/31/2021 12:00 AM EDT from Last 3 Months or Most Recently Relevant to Health Maintenance Insurance [facility]
--- OUTSIDE RECORDS SUMMARY | 2024-10-22 12:27 | XMS_ITS | Clinical Summary ---
Author Organization [facility] Address [address] [place] [address] Phone Care Team Providers Care Business Continuity Strategy Director Name Role Phone Unavailable Primary Care Provider [...] Visit [facility] [address] [place] [address] Koffi Harvey MD [address] [facility] [address] [place] [address] Health Maintenance Due Date Last [...] ORDERABLES Final Re sult Performing Organization Address [facility] de Phone Number LINDEN See order comments [place] [address] * Albumin, urine, random (08/13/2024 12:32 PM [...] ORDERABLES Final Re sult Performing Organization Address [facility] de Phone Number [place] See order comments [place] [address] * (ABNORMAL) Urinalysis with microscopic (08/13/2024 12:32 PM EST) Color Urine Yellow See orde r comments Appearance Urine Cloudy See order comments pH Urine 5.0 5.0 - 9.0 See order comments Glucose Urine Negative Negative mg/dL See order comments Blood, Urine Negative Negative See ord er comments Specific [place] Urine 1.015 1.005 - 1.025 See order [...] R esult - Final Performing Organization Address [facility] de Phone Number [facility] See order comments [place] [address] * (ABNORMAL) Creatinine (08/13/2024 10:30 AM EST) Creatinine Serum 1.46(H) 0.5 - 1.4 mg/dL See order comments eGFR 34 See order comments Comment: Chronic Kidney Disease: ??Estimated GFR < 60 mL/min/1.73m2 Severe Kidney Disease: ??Estimated GFR < 15 mL/min/1.73m2 08/13/2024 10:3 0 AM EST 08/13/2024 10:30 AM EST Koffi Harvey MD LAB BLOOD ORDERABLES Final Re sult Performing Organization Address [facility] de Phone Number [place] See order comments [place] [address] * (ABNORMAL) PTH, Intact (08/13/2024 10:30 AM EST) Parathyroid Hormone, Intact 120.8(H) 8.7 - 77.1 pg/mL See order comments 08/13/2024 10:3 0 AM EST 08/13/2024 10:30 AM EST Koffi Harvey MD LAB [id number] SOLICITED RESULTS Final Result Performing Organization Address [facility] Phone Number [place] See order comments [place] [address] * Vitamin D 25 Hydroxy (08/13/2024 10:30 [...] ORDERABLES Final Re sult Performing Organization Address [facility] de Phone Number [place] See order comments [place] [address] * (ABNORMAL) CBC and Differential (08/13/2024 10:30 [...] order comments [place] [address] * BUN (08/13/2024 10:30 AM EST) BUN 14 9 - 16 mg/dL See order comments 08/13/2024 10:3 0 AM EST 08/13/2024 10:30 AM EST us Koffi Harvey MD LAB BLOOD ORDERABLES Final Re sult Performing Organization Address [facility] Phone Number [place] See order comments [place] [address] * Phosphorus (08/13/2024 10:30 AM EST) Phosphorus, Serum 3.8 2.7 - 4.5 mg/dL See order comments Blood (Blood, Venous) 08/13/2024 10:30 AM EST 08/13/2024 10:30 AM EST us Koffi Harvey MD LAB BLOOD ORDERABLES Final Re sult Performing Organization Address [facility] Phone Number [place] See order comments [place] [address] * Magnesium (08/13/2024 10:30 AM EST) Magnesium 1.8 1.6 - 2.6 mg/dL See order comments Blood (Blood, Venous) 08/13/2024 10:30 AM EST 08/13/2024 10:30 AM EST us Koffi Harvey MD LAB BLOOD ORDERABLES Final Re sult Performing Organization Address [facility] Phone Number [place] See order comments [place] [address] * Calcium (08/13/2024 10:30 AM EST) Calcium 9.6 8.4 - 10.2 mg/dL See order comments Blood (Blood, Venous) 08/13/2024 10:30 AM EST 08/13/2024 10:30 AM EST Result Amy Harvey MD LAB BLOOD ORDERABLES Final Re sult Performing Organization Address [facility] Phone Number [place] See order comments [place] [address] * Albumin (08/13/2024 10:30 AM EST) Albumin 4.0 3.5 - 5.0 g/dL See order comments Blood (Blood, Venous) 08/13/2024 10:30 AM EST 08/13/2024 10:30 AM EST Koffi Harvey MD LAB BLOOD ORDERABLES Final Re sult [place] See order comments [place] [address] * Electrolyte panel (08/13/2024 10:30 AM EST) [...] ORDERABLES Final Re sult Performing Organization Address City/[facility]/ZIP Co de Phone Number [place] See order comments [place] [address] from Last 3 Months Insurance [employer]
== END 2024-10-22 09:54 | disposition home or self-care (01) ==
PROVIDERS: PCP Internal Medicine; Visit Provider Orthopaedic Surgery
DX: M17.11 Unilateral primary osteoarthritis, right knee (principal)
CPT/HCPCS: 99214

== ENCOUNTER → 2024-10-22 09:16 | Outpatient (BNVA) | payer OTHER, SELFPAY | PROVIDERS: PCP Internal Medicine; Visit Provider Orthopaedic Surgery | DX: M17.0 Bilateral primary osteoarthritis of knee (principal) | CPT/HCPCS: 99212 ==

== ENCOUNTER 2024-11-16 08:45 | Outpatient (AMB) | payer OTHER, SELFPAY ==
--- NOTE | 2024-11-16 08:48 | MHC.OFFVIS ---
Intake Visit Reasons: Left Knee Durolane Intake Note: Socorro is an 83 year old female who presents today for a Right Knee Durolane injection Allergies trazodone Allergy (Intermediate, Verified 11/16/24 08:51) nausea HPI HPI Left Knee Durolane: Details: Socorro is an 83 year old female who presents today for a Right Knee Durolane injection. She is looking forward to her knee replacement in January. She does have right and left knee pain. [facility] Medical History Mandible pain Moderate recurrent major depression Anxiety Insomnia Migraines GERD (gastroesophageal reflux disease) Pure hypercholesterolemia Surgical History H/O rectal polypectomy History of cholecystectomy History of repair of rectocele History of bilateral cataract extraction History of sinus surgery Family History Father Cancer Mother Pancreatic cancer Brother Pancreatic cancer Daughter Breast cancer Family/Other FH: mental illness Substance use disorder Maternal Grandmother Diabetes Social History (Updated 10/15/24 @ 08:07 by Socorro Short MD) Housing: Apartment Alcohol intake: never Patient Tobacco Use Status: Former Tobacco user Tobacco use type: Cigarette Cigarettes Per Day: 3 e-Cigarette/Vaping Use: Never Used Second Hand Smoke Exposure: No service: No Current occupational status: disabled Cognitive needs: Yes Hearing needs: No Vision needs: Yes Physical Exam Extrem Other: TTP bilateral knee with medial and lateral joint line ttp. Office Procedures Joint Inj/Aspir; Non-Pain Clin Joint Injection/Drain Details: Injected 1 mL of Decadron and 3 mL 1% lidocaine and 3 mL of 0.25% Marcaine in the left and Durolane in right knee. Site was prepped using aseptic technique. Patient tolerated the procedure well. Shoulders, Hips, Knees, Knee Large Joint Injection : Bilateral Knee Coding Procedure code (CPT) selection complete Quality Reporting (2019) Adult ([facility] ) Smoking risk assessment performed?: Yes Patient Tobacco Use Status: Former Tobacco user Assessment & Plan Assessment & Plan (1) Bilateral primary osteoarthritis of knee: Code(s): M17.0 - Bilateral primary osteoarthritis of knee Category: Medical Plan: Right knee Durolane and left knee steroid injection. Coding Level of Care Code Est Pt Level 3 (91723) Diagnoses Bilateral primary osteoarthritis of knee M17.0 CPT Codes Shoulders, Hips, Knees, - Knee Large Joint Injection : Bilateral Knee ([id number])
--- OUTSIDE RECORDS SUMMARY | 2024-11-16 09:14 | XMS_ITS | Clinical Summary ---
Author Organization [employer] Address [address] [facility] [address] [place] [address] Care Team Providers Care Set Up Mechanic Stamping Machines Name Role Phone Unavailable Primary Care Provider [...] Maintenance Insurance [employer]TE [employer] - [facility]
--- OUTSIDE RECORDS SUMMARY | 2024-11-16 09:14 | XMS_ITS | Clinical Summary ---
Author Organization [facility] Address [address] [place] [address] Phone Care Team Providers Care Javascript Application Developer Name Role Phone Unavailable Primary Care Provider [...] Care Team (Late st Contact Info) Description 01/25/2025 3:30 PM EDT Office Visit [facility] [address] [place] [address] Koffi Harvey MD [address] [facility] [address] [place] [address] Health Maintenance Due Date Last Done Comments Pneumococcal Vaccine: 65+ Ye ars (1 of 2 - PCV) 12/23/1946 Influenza Vaccine (#1) 2024 Hepatitis B Vaccine Aged Out No longe r eligible based on patient's age to complete this topic Insurance [employer] [id number] [place] [address] [employer] [id number]
== END 2024-11-16 09:27 | disposition home or self-care (01) ==
PROVIDERS: PCP Internal Medicine; Visit Provider Orthopaedic Surgery
DX: M17.0 Bilateral primary osteoarthritis of knee (principal)
CPT/HCPCS: 20610; 99213

== ENCOUNTER → 2024-11-16 08:45 | Outpatient (BNVA) | payer OTHER, SELFPAY | PROVIDERS: PCP Internal Medicine; Visit Provider Orthopaedic Surgery | DX: M17.0 Bilateral primary osteoarthritis of knee (principal) | CPT/HCPCS: 20610; 99212; J0665; J1100; J2003; J7318 ==

== ENCOUNTER 2024-12-08 08:44 | Outpatient (REF) | payer OTHER, SELFPAY ==
--- NOTE | ~2024-12-08 | XR_ITS ---
EXAMINATION: XR KNEE 1-2 VIEWS RIGHT HISTORY: M25.561 - Pain in right knee COMPARISON: Comparison is made with the prior examination dated 02/15/2023. FINDINGS: Four views of the right knee are submitted. Osseous mineralization is normal. There is no fracture or dislocation. There is moderate tricompartmental osteoarthritis with joint space narrowing and osteophyte formation. The soft tissues are unremarkable. There is no joint effusion. XR/XR knee RT 2V IMPRESSION: Moderate tricompartmental osteoarthritis. Electronically signed by: Nimesh Connor MD 12/08/2024 10:30 AM EDT
[2024-12-08 09:08] LABS: MANUAL DIFF FLAG NO
[2024-12-08 09:35] LABS: Basophils Percent Auto 0.6 % (0-2); Eosinophils Absolute Auto 0.2 X10*3/uL (0.0-0.4); Eosinophils Percent Auto 2.9 % (0-4); Hematocrit 38.4 % (37.0-47.0); Hemoglobin 12.1 g/dl (12.0-16.0); Imm Gran Abs Auto 0.01 X10*3/uL (0.00-0.03); Imm Gran Pct Auto 0.1 % (0.0-0.4); Lymphocytes Absolute Auto 1.9 X10*3/uL (1.2-4.9); Mean Corpuscular HGB Conc 31.5 g/dl (31.0-35.0); Mean Corpuscular Hemoglobin 30.9 pg (27.0-33.0); Mean Corpuscular Volume 98.2 fL (80.0-98.0); Monocytes Absolute Auto 0.5 X10*3/uL (0.1-1.2); Monocytes Percent Auto 7.6 % (2-11); Neutrophils Absolute Auto 4.2 x10*3/uL (2.0-8.3); Neutrophils Percent Auto 60.8 % (45-73); Platelet Count 333 X10*3/uL (160-400); Red Blood Count 3.91 X10*6/uL (4.20-5.50); White Blood Count 6.8 X10*3/uL (4.8-10.8)
[2024-12-08 10:14] LABS: Alanine Aminotransferase 16 U/L (0-31); Albumin Level 3.8 g/dL (3.5-5.0); Alkaline Phosphatase 96 U/L (39-117); Anion Gap 10 (12-20); Aspartate Amino Transferase 29 U/L (5-31); Bilirubin Total 0.4 mg/dL (0.0-1.0); Blood Urea Nitrogen 17 mg/dL (9-16); Calcium 8.5 mg/dL (8.4-10.2); Carbon Dioxide 25 mmol/L (22-29); Chloride 112 mmol/L (96-108); Cholesterol 202 mg/dL (<200); Estimated Glomerular Filt Rate 40; Glucose Fasting 88 mg/dL (60-99); HDL Cholesterol 64 mg/dL (>40); Iron 74 mcg/dL (30-160); LDL Cholesterol Calculated 109 mg/dL (<100); Percent Iron Saturation 26 % (15-50); Potassium 4.3 mmol/L (3.3-5.1); Sodium 143 mmol/L (135-145); Total Iron Binding Capacity 281 mcg/dL (228-428); Total Protein 7.5 g/dL (6.5-8.0); Triglycerides 145 mg/dL (<150); Unsaturated Iron Binding 207 ug/dL
[2024-12-08 10:21] LABS: Vitamin D 25-OH Total 38.1 ng/mL (>30)
[2024-12-08 10:39] LABS: Folate 13.7 ng/mL (> or = 4.0); Vitamin B12 546 pg/mL (200-900)
== END 2024-12-08 08:45 | disposition home or self-care (01) ==
LOC: HO.XRAY 08:44
PROVIDERS: PCP Internal Medicine; Visit Provider Internal Medicine
DX: E53.8 Deficiency of other specified B group vitamins (principal); E55.9 Vitamin D deficiency, unspecified; D64.9 Anemia, unspecified; N18.30 Chronic kidney disease, stage 3 unspecified; E78.5 Hyperlipidemia, unspecified; M25.561 Pain in right knee
CPT/HCPCS: 36415; 73560; 80053; 80061; 82306; 82607; 82746; 83540; 85025

== ENCOUNTER → 2024-12-08 09:10 | Outpatient (BNV) | payer OTHER, SELFPAY | PROVIDERS: PCP Internal Medicine; Visit Provider Radiology Diagnostic Radiology | DX: M25.561 Pain in right knee (principal) | CPT/HCPCS: 73560 ==

== ENCOUNTER 2024-12-23 08:55 | Outpatient (AMB) | payer OTHER, SELFPAY ==
[2024-12-23 09:17] VITALS: BP 110/76; PULSE 72; O2SAT 96; BMI 23.4
--- NOTE | 2024-12-23 09:17 | MHC.PC.OV ---
Vital Signs 12/23/24 09:17 Height 5 ft 3 in Weight 132 lb BMI 23.4 BP 110/76 Blood Pressure Location Lt brachial Position Sitting Pulse 72 Pulse Source Pulse Oximeter Pulse Oximetry (%) 96 Oxygen Delivery Method Room Air Intake Visit Reasons: Rand nj/Dr. Cintron 02/16/25 Deputy General Counsel Required: No Accompanied by: Daughter Allergies trazodone Allergy (Intermediate, Verified 12/23/24 09:49) nausea Medication List - Last Reconciled 12/23/24 by Socorro Short MD acetaminophen 500 mg PO Q6H PRN 30 days albuterol sulfate 90 mcg/actuation 2 puffs inhalation Q4-6H PRN alendronate 70 mg PO QWEEK 90 days amlodipine 5 mg PO DAILY 90 days atorvastatin 80 mg PO DAILY 90 days calcium carbonate-vitamin D3 600 mg-10 mcg (400 unit) 1 tab PO DAILY cetirizine 10 mg PO DAILY 90 days cholecalciferol (vitamin D3) 25 mcg PO DAILY 90 days clotrimazole 1% 1 appl topical BID 2 weeks diclofenac sodium 1% (Arthritis Pain (diclofenac)) 2 grams topical QID PRN 30 days docusate sodium 100 mg PO BID PRN 90 days fluoxetine 40 mg PO QAM 90 days fluticasone propionate 50 mcg/actuation (Flonase Allergy Relief) 1 spray intranasal DAILY 30 days iryfobcthbk-xhuprmkvk-cfnnckvw 200-62.5-25 mcg (Trelegy Ellipta) 1 ea PO DAILY 60 days meclizine 25 mg PO DAILY PRN 30 days nicotine 1 patch transdermal Q24H 14 days omeprazole 20 mg PO DAILY 90 days quetiapine 25 mg PO BID 90 days sumatriptan succinate 50 mg PO DAILY PRN 90 days walker Folding Front wheeled walker duration 99 days zolpidem 10 mg PO BEDTIME PRN 30 days Tobacco use date assessed: 10/15/24 Fall risk assessment: No Falls in past year Last assessed Fall Risk: 12/23/24 Dental Screening Dental Screen Date: 10/15/24 HPI HPI Comments History of Present Illness Details The patient is an 84-year-old female presenting for a preoperative evaluation for her upcoming right knee replacement surgery due to osteoarthritis-related pain. Her knee pain has been progressively worsening, affecting her ability to walk and climb stairs, which she attributes to osteoarthritis, rather than cardiac or respiratory conditions. Scheduled for December 18, 2023, the right knee replacement surgery requires prior clearance, hence the preoperative work-up. She has 5-7 Mets of ADLs. Going to a medium risk surgery and she is on medium risk patient. Labs were done and shows no medical contraindications. EKG still pending for medical clearance. She has a past medical history of Chronic Obstructive Pulmonary Disease, managed with inhalation therapy, along with controlled hypertension and hyperlipidemia. Her medications include Trelegy, amlodipine, and atorvastatin. Depression and anxiety are managed with fluoxetine. Chronic kidney disease is on observation, showing stable renal function. Recent lab findings indicate stable hemoglobin and glucose levels, with no acute concerns regarding renal function or electrolyte disturbances. Social determinants such as smoking cessation and alcohol abstinence are noted. She has a history of cataracts and surgical interventions including cholecystectomy and rectal polyp removal, with all relevant care provisions addressed. Insomnia and migraines are actively managed, and the possibility of dizziness from polypharmacy is considered. [facility] Medical History (Updated 12/23/24 @ 09:58 by Socorro Short MD) Mandible pain Moderate recurrent major depression Anxiety Insomnia Migraines GERD (gastroesophageal reflux disease) Pure hypercholesterolemia Surgical History H/O rectal polypectomy History of cholecystectomy History of repair of rectocele History of bilateral cataract extraction History of sinus surgery Family History Father Cancer Mother Pancreatic cancer Brother Pancreatic cancer Daughter Breast cancer Family/Other FH: mental illness Substance use disorder Maternal Grandmother Diabetes Social History Housing: Apartment Alcohol intake: never Patient Tobacco Use Status: Former Tobacco user Tobacco use type: Cigarette Cigarettes Per Day: 3 e-Cigarette/Vaping Use: Never Used Second Hand Smoke Exposure: No service: No Current occupational status: disabled Cognitive needs: Yes Hearing needs: No Vision needs: Yes Questionnaire Thrive Questionnaire Date Thrive assessed: 10/15/24 JAN-7 AMB Questionnaire JAN-7 Date JAN - 7 assessed: 10/15/24 Source: Developed by Drs. Nimesh Schumacher, Leisa Austin, Marshall Blum and colleagues, with an educational rhianna from [employer]. Review of Systems Const All systems reviewed & are unremarkable except as noted in HPI and below Card Denies chest pain at rest, Denies chest pain with activity, Denies edema, Denies irregular heart rhythm, Denies claudication, Denies dyspnea, Denies dyspnea on exertion, Denies orthopnea, Denies paroxysmal nocturnal dyspnea and Denies slow heart rate Resp Denies cough, Denies dyspnea and Denies dyspnea on exertion GI Denies abdominal pain, Denies change in bowel habits, Denies excessive flatus, Denies nausea and Denies vomiting Denies urinary incontinence, Denies urinary hesitancy and Denies urinary urgency Musc Denies atrophy, Denies deformity and Denies limited range of motion Skin/Breast Denies bleeding lesions, Denies changing lesions and Denies rash Physical exam (Primary Care) Vital Signs: Last Vital Signs Pulse 72 12/23/24 09:17 BP 110/76 12/23/24 09:17 Pulse Ox 96 12/23/24 09:17 Oxygen Delivery Method Room Air 12/23/24 09:17 BMI result Body Mass Index 23.4 Tobacco/Smoking Status: Tobacco use Status Tobacco use date assessed 10/15/24 12/23/24 09:22 Patient Tobacco Use Status Former Tobacco user 12/23/24 09:22 Tobacco use type Cigarette 12/23/24 09:22 e-Cigarette/Vaping Use Never Used 12/23/24 09:22 Thrive Assessment: Date of Thrive Assessment Date Thrive assessed 10/15/24 12/23/24 09:22 Resp Effort & Inspection: normal respiratory effort Auscultation: clear to auscultation bilaterally Cardio Jugular venous distension: no JVD Rate: regular rate Rhythm: regular rhythm Heart sounds: S1 normal heart sound present and S2 normal heart sound present Extrem General: Yes full ROM Coding Level of Care Code Est Pt Level 4 (46078) Complex EM visit Add On G2211 Diagnoses Pre-op evaluation Z01.818 Localized osteoarthritis of right knee M17.11 Stage 3b chronic kidney disease N18.32 Chronic kidney disease stage 3 subtype: stage 3b (GFR 30-44) Osteoporosis M81.0 Moderate recurrent major depression F33.1 Essential hypertension I10 Hypertension type: essential hypertension 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 Time Spent (min) 24 Assessment & Plan Assessment & Plan (1) Pre-op evaluation: Code(s): Z01.818 - Encounter for other preprocedural examination Category: Medical (2) Localized osteoarthritis of right knee: Code(s): M17.11 - Unilateral primary osteoarthritis, right knee Category: Medical (3) CKD (chronic kidney disease) stage 3, GFR 30-59 ml/min: Code(s): N18.30 - Chronic kidney disease, stage 3 unspecified Category: Medical Qualifiers: Chronic kidney disease stage 3 subtype: stage 3b (GFR 30-44) Qualified Code(s): N18.32 - Chronic kidney disease, stage 3b (4) Osteoporosis: Code(s): M81.0 - Age-related osteoporosis without current pathological fracture Category: Medical (5) Moderate recurrent major depression: Code(s): F33.1 - Major depressive disorder, recurrent, moderate Category: Medical (6) HTN (hypertension): Code(s): I10 - Essential (primary) hypertension Category: Medical Qualifiers: Hypertension type: essential hypertension Qualified Code(s): I10 - Essential (primary) hypertension (7) Asthma-COPD overlap syndrome: Code(s): J44.9 - Chronic obstructive pulmonary disease, unspecified Category: Medical Plan For the preoperative evaluation related to right knee osteoarthritis, necessary tests include an electrocardiogram to surveillance cardiac health ahead of surgery. We are maintaining her current treatments for chronic conditions such as COPD, hypertension, and hyperlipidemia. Medications will be continued, ensuring she remains well-managed medically before surgery. The evaluation involves focusing on stable renal function, with compliance to her medication regimen pivotal. The pre-operative plan includes ensuring adequate control of COPD and hypertension, maintaining baseline health, and ensuring she is medically optimized for the procedure. Patient was informed and verbally consented to the use of an ambient scribe for clinic note documentation during this visit. During the consultation, I discussed the plan for preoperative evaluations required for her incoming right knee surgery. I emphasized the necessity of an updated electrocardiogram, particularly considering her COPD and cardiovascular history, to ensure surgery safety. We reviewed the stable management of other conditions, with the need to continue present prescriptions emphasized. I explained the importance of her medication compliance in securing medical optimization for surgery. The patient was also made aware of the benefits and necessity of stable management of her chronic health conditions leading up to surgical intervention. Follow-up coordination involves the potential for quick callbacks should any test result or new health facet require re-evaluation. Orders: Orders ECG 12 lead EKG Today Z01.818 - Encounter for other preprocedural examination Patient Instructions: - Complete the electrocardiogram at the hospital at her earliest convenience. - Continue all current medications as prescribed. - Report any new symptoms or concerns promptly. - Ensure compliance with medications for COPD, hypertension, and other chronic conditions. - Maintain a healthy lifestyle, including diet and exercise as tolerable. - Follow up as scheduled with surgical and healthcare team regarding surgery.
--- OUTSIDE RECORDS SUMMARY | 2024-12-23 09:38 | XMS_ITS | Clinical Summary ---
Author Organization [facility] Address [address] [place] [address] Phone Care Team Providers Care Inspection And Testing Supervisor Name Role Phone Unavailable Primary Care Provider [...] [facility] [address] [place] [address] Koffi Harvey MD [address] [facility] [address] [place] [address] Health Maintenance Due Date Last Done Comments Pneumococcal Vaccine: 65+ Ye ars (1 of 2 - PCV) 12/23/1946 Influenza Vaccine (#1) 2024 Hepatitis B Vaccine Aged Out No longe r eligible based on patient's age to complete this topic Insurance [employer] [place] [id number] [place] [address] [place] [place] [id number]
--- OUTSIDE RECORDS SUMMARY | 2024-12-23 09:38 | XMS_ITS | Clinical Summary ---
Author Organization [employer] Address [address] [facility] 7[address] [place] [address] Care Team Providers Care Marking Room Supervisor Name Role Phone Unavailable Primary Care [...] Maintenance Insurance [employer]TE [employer] - DQ [facility]TE [facility]
== END 2024-12-23 10:03 | disposition home or self-care (01) ==
LOC: HO.HMCH 08:56
PROVIDERS: PCP Internal Medicine; Visit Provider Internal Medicine
DX: I12.9 Hypertensive chronic kidney disease with stage 1 through stage 4 chronic kidney disease, or unspecified chronic kidney disease (principal); N18.32 Chronic kidney disease, stage 3b; F33.1 Major depressive disorder, recurrent, moderate; J44.9 Chronic obstructive pulmonary disease, unspecified; Z01.818 Encounter for other preprocedural examination; M17.11 Unilateral primary osteoarthritis, right knee; M81.0 Age-related osteoporosis without current pathological fracture

== ENCOUNTER → 2024-12-23 08:55 | Outpatient (BNVA) | payer OTHER, SELFPAY | PROVIDERS: PCP Internal Medicine; Visit Provider Internal Medicine | DX: Z01.818 Encounter for other preprocedural examination (principal); M17.11 Unilateral primary osteoarthritis, right knee; I12.9 Hypertensive chronic kidney disease with stage 1 through stage 4 chronic kidney disease, or unspecified chronic kidney disease; N18.32 Chronic kidney disease, stage 3b; M81.0 Age-related osteoporosis without current pathological fracture; J44.9 Chronic obstructive pulmonary disease, unspecified; F33.1 Major depressive disorder, recurrent, moderate | CPT/HCPCS: 99212 ==

== ENCOUNTER → 2024-12-25 09:00 | Outpatient (BNV) | payer OTHER, SELFPAY | PROVIDERS: PCP Internal Medicine; Visit Provider Internal Medicine | DX: I44.0 Atrioventricular block, first degree (principal) | CPT/HCPCS: 93010 ==

== ENCOUNTER → 2025-01-08 08:21 | Outpatient (BNVA) | payer OTHER, SELFPAY | PROVIDERS: PCP Internal Medicine | DX: Z01.818 Encounter for other preprocedural examination (principal) ==

== ENCOUNTER 2025-01-22 12:35 | Outpatient (AMB) | payer OTHER, SELFPAY ==
[2025-01-22 12:56] VITALS: BP 122/82; PULSE 104; O2SAT 94; BMI 23.4
--- NOTE | 2025-01-22 12:56 | MHC.OFFVIS ---
Vital Signs 01/22/25 12:56 Height 5 ft 3 in Weight 132 lb BMI 23.4 BP 122/82 Blood Pressure Location Rt brachial Position Sitting Pulse 104 H Pulse Source Doppler Pulse Oximetry (%) 94 Oxygen Delivery Method Room Air Intake Visit Reasons: Rand nj/Dr. Cintron 02/16/25 Pharmacy Tech Customer Service Required: Yes Pharmacy Tech Customer Service Name: Bebe Josesito Deal Allergies trazodone Allergy (Intermediate, Verified 01/22/25 13:00) nausea HPI HPI Rand nj/Dr. Cintron 02/16/25: Details: 84-year-old lady, active approximately 20 pack year smoker, followed for underlying? asthma/COPD overlap syndrome, chronic cough, and dyspnea on exertion.? She continues on Trelegy with good control of her underlying symptoms.? She denies any recent acute exacerbations. She is planned for left total knee arthroplasty. [facility] Medical History (Updated 01/22/25 @ 13:24 by Darinel Hernandez MD) Back pain Arthritis Asthma Wears dentures COPD (chronic obstructive pulmonary disease) HLD (hyperlipidemia) HTN (hypertension) Seasonal allergies Mandible pain Moderate recurrent major depression Anxiety Insomnia Migraines GERD (gastroesophageal reflux disease) Pure hypercholesterolemia Surgical History (Updated 01/19/25 @ 09:17 by Cherelle Partida RN) Hx of colonoscopy H/O rectal polypectomy History of cholecystectomy History of repair of rectocele History of bilateral cataract extraction History of sinus surgery Family History Father Cancer Mother Pancreatic cancer Brother Pancreatic cancer Daughter Breast cancer Family/Other FH: mental illness Substance use disorder Maternal Grandmother Diabetes Social History (Updated 01/22/25 @ 13:02 by MARLENE Acevedo) Household Members: Other Household Members Other:: daughter Housing: Apartment Are you a primary career development engineer to a significant other at home: No 75 years or older and lives alone: No Alcohol intake: never Patient Tobacco Use Status: Former Tobacco user Tobacco use type: Cigarette Years Smoked: Started around age 21, on and off. quit 09/2024 e-Cigarette/Vaping Use: Never Used Second Hand Smoke Exposure: No Advance Directives Date on File: 07/12/09 service: No Current occupational status: disabled Cognitive needs: Yes Hearing needs: No Vision needs: Yes Review of Systems Const Denies daytime sleepiness, Denies excessive sweating, Denies fatigue, Denies fever(s), Denies lethargy, Denies malaise, Denies night sweats, Denies snoring and Denies weight loss Eyes Denies blurry vision and Denies itchy eyes ENT Denies nasal congestion, Denies post nasal drip, Denies sinus pain, Denies sinus pressure and Denies other ( Thrush) Card Denies chest pain, Denies pedal edema, Denies dyspnea, Denies orthopnea and Denies paroxysmal nocturnal dyspnea Resp Denies cough, Denies hemoptysis, Denies excessive phlegm production, Denies dyspnea, Denies snoring and Denies wheezing GI Denies abdominal pain and Denies heartburn Musc Denies myalgias, Denies arthralgias and Denies joint swelling Skin/Breast Denies rash Neuro Denies memory loss and Denies seizure-like activity Psych Denies abnormal sleep pattern, Denies anxiety and Denies memory loss Endo Denies excessive sweating, Denies fatigue and Denies heat intolerance Dawson/Lymph Denies easy bruising Aller/Immun Denies itchy eyes, Denies seasonal rhinorrhea and Denies wheezing Physical Exam Vital Signs: Last Vital Signs Pulse 104 H 01/22/25 12:56 BP 122/82 01/22/25 12:56 Pulse Ox 94 01/22/25 12:56 Oxygen Delivery Method Room Air 01/22/25 12:56 BMI result Body Mass Index 23.4 Const General: no acute distress and alert Nutritional Appearance: not obese Orientation/consciousness: Other orientation findings ( oriented) HEENT Head: Yes atraumatic Eyes General: appearance normal, both eyes and all related structures Sclerae: sclerae normal EOM: EOMs intact bilaterally Neck Neck: Yes supple Lymphatic: no lymphadenopathy noted Resp Effort & Inspection: normal respiratory effort and no use of accessory muscles Auscultation: clear to auscultation bilaterally Cardio Rate: regular rate Rhythm: regular rhythm Heart sounds: no gallops, no murmurs and no rubs Skin General skin exam: other ( warm) Extrem General: No clubbing, No cyanosis and No edema Assessment & Plan Assessment & Plan (1) Asthma-COPD overlap syndrome: Code(s): J44.9 - Chronic obstructive pulmonary disease, unspecified Category: Medical Plan: Well controlled on current regimen of Trelegy and albuterol MDI. Continue current regimen. (2) Preop pulmonary/respiratory exam: Code(s): Z01.811 - Encounter for preprocedural respiratory examination Category: Medical Plan: At this time patient is at low risk for pulmonary perioperative complications for the proposed total knee arthroplasty either under general anesthesia, or monitored anesthesia care. Coding Level of Care Code Est Pt Level 4 (26019) Diagnoses 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 Preop pulmonary/respiratory exam Z01.811
--- OUTSIDE RECORDS SUMMARY | 2025-01-22 13:01 | XMS_ITS | Clinical Summary ---
Author Organization [employer] Address [address] [place] [address] Care Team Providers Care Licensed Insurance Sales Agent Name Role Phone Unavailable Primary Care Provider [...] Maintenance Insurance [facility]
--- OUTSIDE RECORDS SUMMARY | 2025-01-22 13:01 | XMS_ITS | Clinical Summary ---
Author Organization [facility] Address [address] [place] [address] Phone Care Team Providers Care Water Pipe Installer Name Role Phone Unavailable Primary Care Provider [...] Visit [facility] [address] [place] [address] Koffi Harvey MD [address] [place] [address] Health Maintenance Due Date Last Done Comments Pneumococcal Vaccine: 50+ Ye ars (1 of 2 - PCV) 1959 Influenza Vaccine (Season Ended) 2025 Hepatitis B Vaccine Aged Out No longe r eligible based on patient's age to complete this topic Insurance [place] [id number] [place] [address] [place] [id number]
== END 2025-01-22 13:14 | disposition home or self-care (01) ==
PROVIDERS: PCP Internal Medicine; Referring Provider Internal Medicine; Visit Provider Internal Medicine Pulmonary Disease
DX: J44.9 Chronic obstructive pulmonary disease, unspecified (principal); Z01.811 Encounter for preprocedural respiratory examination
CPT/HCPCS: 99214

== ENCOUNTER → 2025-01-22 12:35 | Outpatient (BNVA) | payer OTHER, SELFPAY | PROVIDERS: PCP Internal Medicine; Referring Provider Internal Medicine; Visit Provider Internal Medicine Pulmonary Disease | DX: Z01.811 Encounter for preprocedural respiratory examination (principal); J44.89 Other specified chronic obstructive pulmonary disease; Z87.891 Personal history of nicotine dependence | CPT/HCPCS: 99212 ==

== ENCOUNTER 2025-02-01 09:29 | Outpatient (AMB) | payer OTHER, SELFPAY ==
--- NOTE | 2025-02-01 09:40 | HO.NEPHOV_ITS ---
Vital Signs 02/01/25 09:41 Height 5 ft 3 in Weight 134 lb BMI 23.7 BP 142/78 H Blood Pressure Location Rt brachial Position Sitting Pulse 95 Pulse Source Pulse Oximeter Pulse Oximetry (%) 96 Oxygen Delivery Method Room Air Intake Visit Reasons: CKD/ Conf Code Machine Operator Required: Yes Code Machine Operator Name: Carina [id number] Accompanied by: Self / Same As Patient Allergies trazodone Allergy (Intermediate, Verified 02/01/25 09:42) nausea Medication List - Last Reconciled 02/01/25 by José Hays MD acetaminophen 500 mg PO Q6H PRN 30 days albuterol sulfate 90 mcg/actuation 2 puffs inhalation Q4-6H PRN alendronate 70 mg PO QWEEK 90 days amlodipine 5 mg PO DAILY 90 days atorvastatin 80 mg PO DAILY 90 days calcium carbonate-vitamin D3 600 mg-10 mcg (400 unit) 1 tab PO DAILY cetirizine 10 mg PO DAILY 90 days cholecalciferol (vitamin D3) 25 mcg PO DAILY 90 days clotrimazole 1% 1 appl topical BID 2 weeks diclofenac sodium 1% (Arthritis Pain (diclofenac)) 2 grams topical QID PRN 30 days docusate sodium 100 mg PO BID PRN 90 days fluoxetine 40 mg PO QAM 90 days fluticasone propionate 50 mcg/actuation (Flonase Allergy Relief) 1 spray intrana francisco j DAILY 30 days yumcxairxkq-dhfdictfy-giuztdtw 200-62.5-25 mcg (Trelegy Ellipta) 1 ea PO DAILY 60 days meclizine 25 mg PO DAILY PRN 30 days nicotine 1 patch transdermal Q24H 14 days omeprazole 20 mg PO DAILY 90 days quetiapine 25 mg PO DAILY sumatriptan succinate 50 mg PO DAILY PRN 90 days walker Folding Front wheeled walker duration 99 days zolpidem 10 mg PO BEDTIME PRN 30 days HPI Comments Details: Socorro is a pleasant elderlywoman with a history of longstanding hypertension and mild CKD. She is here for semiannual follow-up. Overall she is doing very well. She denies any new complaints like headache nausea vomiting. No urinary symptoms no edema. She seems compliant with her medications. Code Machine Operator service was used. [facility] Medical History (Updated 01/22/25 @ 13:24 by Darinel Hernandez MD) Back pain Arthritis Asthma Wears dentures COPD (chronic obstructive pulmonary disease) HLD (hyperlipidemia) HTN (hypertension) Seasonal allergies Mandible pain Moderate recurrent major depression Anxiety Insomnia Migraines GERD (gastroesophageal reflux disease) Pure hypercholesterolemia Surgical History Hx of colonoscopy H/O rectal polypectomy History of cholecystectomy History of repair of rectocele History of bilateral cataract extraction History of sinus surgery Family History Father Cancer Mother Pancreatic cancer Brother Pancreatic cancer Daughter Breast cancer Family/Other FH: mental illness Substance use disorder Maternal Grandmother Diabetes Social History Household Members: Other Household Members Other:: daughter Housing: Apartment Are you a primary resident care assistant to a significant other at home: No 75 years or older and lives alone: No Alcohol intake: never Patient Tobacco Use Status: Former Tobacco user Tobacco use type: Cigarette Years Smoked: Started around age 21, on and off. quit 09/2024 e-Cigarette/Vaping Use: Never Used Second Hand Smoke Exposure: No Advance Directives Date on File: 07/12/09 service: No Current occupational status: disabled Cognitive needs: Yes Hearing needs: No Vision needs: Yes Physical Exam Vital Signs: Last Vital Signs Pulse 95 02/01/25 09:41 BP 142/78 H 02/01/25 09:41 Pulse Ox 96 02/01/25 09:41 Oxygen Delivery Method Room Air 02/01/25 09:41 BMI result Body Mass Index 23.7 Const General: comfortable Nutritional Appearance: well nourished Orientation/consciousness: patient oriented x3 HEENT Head: No normal to inspection Mouth: moist mucous membranes Neck Neck: Yes supple and Yes no JVD Resp Auscultation: clear to auscultation bilaterally, no rales and rub present Cardio Jugular venous distension: no JVD Palpation: no palpable S3 and no palpable S4 Heart sounds: no rubs GI Palpation (GI): Soft to palpation and nontender Percussion: No Fluid wave present General: Yes no CVA tenderness Back/Spine/Pelvis Back: no CVA tenderness Skin General skin exam: no rashes or lesions noted Neuro General: patient oriented x3 Extrem General: Yes no pedal edema and No clubbing Results Reviewed Nephrology Results: Hgb 12.1 g/dl (12.0-16.0) 12/08/24 WBC 6.8 X10*3/uL (4.8-10.8) 12/08/24 Plt Count 333 X10*3/uL (160-400) 12/08/24 Sodium 143 mmol/L (135-145) 12/08/24 Potassium 4.3 mmol/L (3.3-5.1) 12/08/24 Chloride 112 mmol/L (96-108) H 12/08/24 Carbon Dioxide 25 mmol/L (22-29) 12/08/24 BUN 17 mg/dL (9-16) H 12/08/24 Creatinine 1.29 mg/dL (0.5-1.4) 12/08/24 Calcium 8.5 mg/dL (8.4-10.2) 12/08/24 Assessment & Plan Assessment & Plan (1) CKD (chronic kidney disease) stage 3, GFR 30-59 ml/min: Code(s): N18.30 - Chronic kidney disease, stage 3 unspecified Category: Medical Qualifiers: Chronic kidney disease stage 3 subtype: stage 3b (GFR 30-44) Qualified Code(s): N18.32 - Chronic kidney disease, stage 3b Plan Socorro has stage IIIA CKD in a setting of longstanding hypertension. The renal function is stable at baseline. eGFR is around 40-45 ml.mt Cr has improved ( 1.4 to 1.29) Goal is to slow the progression of renal disease. Continue to maintain blood pressure less than 130/80. Stay on low-sodium Continue to avoid nephrotoxic agents including NSAIDs. At present blood pressure is acceptable No changes were made to the medications. Mild elevation in intact PTH due to secondary hyperparathyroidism Watch for now Keep on Vit D Orders: Orders Basic Metabolic Panel 6 Months N18.32 - Chronic kidney disease, stage 3b Coding Level of Care Code Est Pt Level 4 (81235) Diagnoses Stage 3b chronic kidney disease N18.32 Chronic kidney disease stage 3 subtype: stage 3b (GFR 30-44)
[2025-02-01 09:41] VITALS: BP 142/78; PULSE 95; O2SAT 96; BMI 23.7
--- OUTSIDE RECORDS SUMMARY | 2025-02-01 09:45 | XMS_ITS | Clinical Summary ---
Author Organization [employer] Address [address] [facility] [address] [place] [address] Care Team Providers Care Outside Deliverer Name Role Phone Unavailable Primary Care Provider [...] Health Maintenance Insurance [employer]TE DENT[employer] - DQ [employer] [facility] [facility] SNP
--- OUTSIDE RECORDS SUMMARY | 2025-02-01 09:45 | XMS_ITS | Clinical Summary ---
Author Organization [facility] Address [address] [place] [address] Phone Care Team Providers Care Machine Joint Cutter Name Role Phone Unavailable Primary Care Provider [...] 07/13/2024 1:00 PM EDT Plan of Treatment Health Maintenance Due Date Last Done Comments Pneumococcal Vaccine: 50+ Ye ars (1 of 2 - PCV) 1959 Influenza Vaccine (Season Ended) 2025 Hepatitis B Vaccine Aged Out No longe r eligible based on patient's age to complete this topic Procedures Procedure Name Priority Date/Time Associated Diagnosis Comments EXT RESULT ENTRY Routine 12/08/2024 from Last 3 Months Results * (ABNORMAL) EXT RESULT ENTRY (12/08/2024) WBC 6.8 3.3 - 10.0 10*3/ML Red Blood Cell Count 3.91 Hemoglobin 12.1 12.0 - 16.0 Hematocrit 38.4 36.0 - 46.0 Platelets 333 150 - 399 10*3/UL MCV 98.2 82.0 - 108.0 Neutrophils Absolute 4.20 1.30 - 8.30 10*3/UL Iron 74 UG/DL Iron Saturation (TSat) 26 % TIBC 281 ug/dL UIBC (EXTERNAL RESULT ENTRY) 207 Vitamin B-12 546 pg/mL Sodium 143 137 - 147 Potassium 4.3 3.4 - 5.5 Chloride 112.0(A) 99.0 - 108.0 Carbon Dioxide 25 mmol/L Anion Gap 10 <=30 MMOL/L Glucose 88 60 - 200 BUN 17 4 - 21 mg/dL Creatinine 1.29(A) 0.50 - 1.10 mg/dL Total Protein 7.5 6.4 - 8.2 G/DL Albumin 3.8 3.5 - 5.0 g/dL Calcium 8.5(A) 8.7 - 10.7 mg/dL eGFR Non-Afr Citizen Of [place] 40 ALT (SGPT) 16 U/L AST (SGOT) 29 U/L Alkaline Phosphatase 96 U/L Vitamin D, 25-OH, Total 38.1 ng/mL Triglycerides 145 Cholesterol, Total 202 HDL 64 mg/dL LDL-Calculated 109 12/08/2024 Historical Provider LAB BLOOD ORDERABLES Malathi l Result from Last 3 Months Insurance Kamla Cottle
== END 2025-02-01 09:59 | disposition home or self-care (01) ==
LOC: HO.HKA 09:29
PROVIDERS: PCP Internal Medicine; Visit Provider Internal Medicine Hypertension Specialist
DX: N18.32 Chronic kidney disease, stage 3b (principal)
CPT/HCPCS: 99214

== ENCOUNTER → 2025-02-01 09:29 | Outpatient (BNVA) | payer OTHER, SELFPAY | PROVIDERS: PCP Internal Medicine; Visit Provider Internal Medicine Hypertension Specialist | DX: I12.9 Hypertensive chronic kidney disease with stage 1 through stage 4 chronic kidney disease, or unspecified chronic kidney disease (principal); N18.32 Chronic kidney disease, stage 3b | CPT/HCPCS: 99212 ==

== ENCOUNTER 2025-02-11 08:27 | Outpatient (AMB) | payer OTHER, SELFPAY ==
--- NOTE | 2025-02-11 08:40 | MHC.OFFVIS ---
Vital Signs 02/11/25 08:42 Height 5 ft 3 in Weight 134 lb BMI 23.7 Intake Visit Reasons: Pre-Op: R TKA w/NE 02/16/25 Intake Note: Socorro is an 84 year old male who presents today for a preoperative right TKA w/NE 02/16/25. Pain management agreement reviewed and signed. High Density Press Operator Required: Yes High Density Press Operator Services: High Density Press Operator Present High Density Press Operator Name: vipul magana Allergies trazodone Allergy (Intermediate, Verified 02/11/25 08:43) nausea Medication List - Last Reconciled 02/11/25 by Lily Mcgowan PA-C acetaminophen 500 mg PO Q6H PRN 30 days albuterol sulfate 90 mcg/actuation 2 puffs inhalation Q4-6H PRN alendronate 70 mg PO QWEEK 90 days amlodipine 5 mg PO DAILY 90 days atorvastatin 80 mg PO DAILY 90 days calcium carbonate-vitamin D3 600 mg-10 mcg (400 unit) 1 tab PO DAILY cetirizine 10 mg PO DAILY 90 days cholecalciferol (vitamin D3) 25 mcg PO DAILY 90 days clotrimazole 1% 1 appl topical BID 2 weeks diclofenac sodium 1% (Arthritis Pain (diclofenac)) 2 grams topical QID PRN 30 days docusate sodium 100 mg PO BID PRN 90 days fluoxetine 40 mg PO QAM 90 days fluticasone propionate 50 mcg/actuation (Flonase Allergy Relief) 1 spray intranasal DAILY 30 days hcfiatvtdsy-acknojjml-vebaazia 200-62.5-25 mcg (Trelegy Ellipta) 1 ea PO DAILY 60 days meclizine 25 mg PO DAILY PRN 30 days nicotine 1 patch transdermal Q24H 14 days omeprazole 20 mg PO DAILY 90 days quetiapine 25 mg PO DAILY sumatriptan succinate 50 mg PO DAILY PRN 90 days walker Folding Front wheeled walker duration 99 days zolpidem 10 mg PO BEDTIME PRN 30 days HPI Comments Details: Ms Wilkerson presents to the office today for preop visit. She is scheduled for right total knee arthroplasty with Dr. Cintron. She continues to have ongoing pain and difficulty with ambulation in the right knee, which is affecting her quality of life; therefore, she has elected to move forward with surgery. She has a PMH significant for COPD managed with inhalation therapy, CKD III, HTN, and Hyperlipidemia. She will avoid nephrotoxins post op. She is a former smoker She lives in a two level home with her daughter and grandson. She does have a walker post op [facility] Medical History (Updated 01/22/25 @ 13:24 by Darinel Hernandez MD) Back pain Arthritis Asthma Wears dentures COPD (chronic obstructive pulmonary disease) HLD (hyperlipidemia) HTN (hypertension) Seasonal allergies Mandible pain Moderate recurrent major depression Anxiety Insomnia Migraines GERD (gastroesophageal reflux disease) Pure hypercholesterolemia Surgical History Hx of colonoscopy H/O rectal polypectomy History of cholecystectomy History of repair of rectocele History of bilateral cataract extraction History of sinus surgery Family History Father Cancer Mother Pancreatic cancer Brother Pancreatic cancer Daughter Breast cancer Family/Other FH: mental illness Substance use disorder Maternal Grandmother Diabetes Social History Household Members: Other Household Members Other:: daughter Housing: Apartment Are you a primary patient care technician to a significant other at home: No 75 years or older and lives alone: No Alcohol intake: never Patient Tobacco Use Status: Former Tobacco user Tobacco use type: Cigarette Years Smoked: Started around age 21, on and off. quit 09/2024 e-Cigarette/Vaping Use: Never Used Second Hand Smoke Exposure: No Advance Directives Date on File: 07/12/09 service: No Current occupational status: disabled Cognitive needs: Yes Hearing needs: No Vision needs: Yes Review of Systems Const All systems reviewed & are unremarkable except as noted in HPI and below Physical Exam Extrem Other: Right knee skin intact, no open wounds or abraisons ROM 0-95 Calf supple non tender NVI Results Reviewed Results Reviewed: Xrays were obtained in the office today and personally reviewed by me of the right knee obtained for surgical planning Assessment & Plan Assessment & Plan (1) Localized osteoarthritis of right knee: Code(s): M17.11 - Unilateral primary osteoarthritis, right knee Category: Medical Plan: I discussed in detail the procedure and what to expect pre and post operatively. We discussed the risks, benefits and alternatives to the surgery as well as the rehabilitation course. The risks; which include, but are not limited to infection, bleeding, nerve injury, ongoing pain, swelling, and stiffness, perioperative risk of injury to bones and soft tissues, and blood clots. I?ve answered all questions and with their understanding they have consented to move forward with Right total knee arthroplasty with Dr. Cintron Patient has CKD stage 3 and will need to avoid nephrotoxins postoperatively. She will be placed on Lovenox for DVT prophylaxis. She was given an order for type and screen/BMP and CBC with diff to be done today Plan is to be discharged home with physical therapy services Patient was given a physical therapy order to call and make an appointment to begin after her 03/04/2025 postop appointment. Orders: Orders XR knee RT 3V Today M17.11 - Unilateral primary osteoarthritis, right knee Basic Metabolic Panel Today Z01.818 - Encounter for other preprocedural examination Complete Blood Count Auto Diff Today Z01.818 - Encounter for other preprocedural examination Type and Screen Today Z01.818 - Encounter for other preprocedural examination PT Evaluation and Treatment Today Z96.651 - Presence of right artificial knee joint Coding Level of Care Code Est Pt Level 3 (58780) Complex EM visit Add On G2211 Diagnoses Localized osteoarthritis of right knee M17.11
--- OUTSIDE RECORDS SUMMARY | 2025-02-11 08:40 | XMS_ITS | Clinical Summary ---
Author Organization [facility] Address [address] [place] [address] Phone Care Team Providers Care Virtual Assistant For Advertisers Name Role Phone Unavailable Primary Care Provider [...] 8.5(A) 8.7 - 10.7 mg/dL eGFR Non-Afr [place] 40 ALT (SGPT) 16 U/L AST (SGOT) 29 U/L Alkaline Phosphatase 96 U/L Vitamin D, 25-OH, Total 38.1 ng/mL Triglycerides 145 Cholesterol, Total 202 HDL 64 mg/dL LDL-Calculated 109 12/08/2024 Historical Provider LAB BLOOD ORDERABLES Malathi l Result from Last 3 Months Insurance Kamla [place]
--- OUTSIDE RECORDS SUMMARY | 2025-02-11 08:40 | XMS_ITS | Clinical Summary ---
Author Organization [employer] Address [address] [facility] [address] [place] [address] Care Team Providers Care Cnc Wood Lathe Operator Name Role Phone Unavailable Primary Care Provider [...] patient's age to complete this topic Meningococcal B Vaccine Aged Out No l onger eligible based on patient's age to complete [...] Health Maintenance Insurance LYNETTE DENTAL - DQ [facility] SNP
[2025-02-11 08:42] VITALS: BMI 23.7
== END 2025-02-11 09:00 | disposition home or self-care (01) ==
LOC: HO.HOS 08:28
PROVIDERS: PCP Internal Medicine; Visit Provider Physician Assistant
DX: M17.11 Unilateral primary osteoarthritis, right knee (principal)
CPT/HCPCS: 99213; G2211

== ENCOUNTER → 2025-02-11 08:29 | Outpatient (BNV) | payer OTHER, SELFPAY | PROVIDERS: Visit Provider Radiology Diagnostic Radiology | DX: M17.0 Bilateral primary osteoarthritis of knee (principal) | CPT/HCPCS: 73562 ==

== ENCOUNTER 2025-02-11 09:33 | Outpatient (REF) | payer OTHER, SELFPAY ==
--- NOTE | ~2025-02-11 | XR_ITS ---
EXAMINATION: XR KNEE, RIGHT CLINICAL INFORMATION: M17.11 - Unilateral primary osteoarthritis, right knee COMPARISON: December 08, 2024. February 15, 2023. TECHNIQUE: AP view both knees in standing position. Oblique, lateral and sunrise views of the right knee. FINDINGS: Joint space narrowing involving the medial and lateral compartment and to a lesser extent the patellofemoral joint. Marginal osteophyte formation within the femoral condyles and tibial plateaus both knees more pronounced on the medial compartment on the left knee and bilaterally on the right knee. Sclerosis along the articular surfaces of the tibial plateaus involving mostly the lateral compartment on the right knee and the medial compartment of the left knee. No suprapatellar bursa joint effusion. No acute cortical disruption or malalignment. Osteopenia versus processes. Decreased musculature both lower extremities. Vascular calcifications in the right lower extremity. XR/XR knee RT 3V IMPRESSION: Bicompartmental osteoarthrosis involving mostly the lateral compartment in the right knee and the medial compartment on the left knee. Electronically signed by: Jerry Blount MD 02/11/2025 08:42 AM EDT
--- OUTSIDE RECORDS SUMMARY | 2025-02-12 09:48 | XMS_ITS | Clinical Summary ---
Author Organization [facility] Address [address] [place] [address] Phone Care Team Providers Care Division Merchandise Manager Name Role Phone Unavailable Primary Care Provider [...] 8.5(A) 8.7 - 10.7 mg/dL eGFR Non-Afr Vincentian 40 ALT (SGPT) 16 U/L AST (SGOT) 29 U/L Alkaline Phosphatase 96 U/L Vitamin D, 25-OH, Total 38.1 ng/mL Triglycerides 145 Cholesterol, Total 202 HDL 64 mg/dL LDL-Calculated 109 12/08/2024 Historical Provider LAB BLOOD ORDERABLES Malathi l Result from Last 3 Months Insurance Kamla Bullitt
== END 2025-02-11 09:34 | disposition home or self-care (01) ==
LOC: HO.HOSX 09:33
PROVIDERS: Visit Provider Physician Assistant
DX: Z01.818 Encounter for other preprocedural examination (principal); M17.11 Unilateral primary osteoarthritis, right knee
CPT/HCPCS: 73562; 99212

== ENCOUNTER 2025-02-16 06:47 | Day surgery (SDC) | payer OTHER, SELFPAY ==
--- NOTE | 2024-12-25 09:00 | ECG_ITS ---
Test Reason : PREOP Blood Pressure : */* mmHG Vent. Rate : 81 BPM Atrial Rate : 81 BPM P-R Int : 228 ms QRS Dur : 82 ms QT Int : 386 ms P-R-T Axes : 65 33 60 degrees QTcB Int : 448 ms Sinus rhythm with 1st degree A-V block Low voltage QRS Borderline ECG When compared with ECG of 05-Dec-2021 07:44, No significant change was found Referred By: Socorro Short Electronically Signed By: ONDINA PAYNE
[2025-01-19 09:26] VITALS: BP 140/75; PULSE 90; RESP 16; O2SAT 98; BMI 23.4
--- NOTE | 2025-01-19 09:55 | HO.ANESPROP2 ---
HPI - Anesthesia Eval Consult details Narrative: 84yo F for Right Knee Replacement Total, 02/16/25 Optimized per PCP Pulmo pending Renal pending No recent illness No CP/SOB within limits of knee pain Asthma/COPD: pulmo eval pending, albuterol ~ 1 x daily GERD: ppi PMFSH Active Problems Active Problems: All Active Problems Pre-op evaluation (Acute) Localized osteoarthritis of right knee (Acute) Right knee pain (Acute) Environmental allergies (Acute) Dyspnea on exertion (Acute) Foot lesion (Acute) Physical exam (Acute) CKD (chronic kidney disease) stage 3, GFR 30-59 ml/min (Acute) Osteoporosis (Acute) Bilateral primary osteoarthritis of knee (Acute) Bloody stools (Acute) Chronic cough (Acute) Smoker (Acute) Gait disturbance (Acute) Cough (Acute) Osteoarthritis of right knee (Acute) Osteoarthritis of left knee (Acute) Elevated erythrocyte sedimentation rate (Acute) Fainting spell (Acute) Dizziness (Acute) Pulmonary nodules (Acute) Asthma-COPD overlap syndrome (Acute) Right otitis media (Acute) BPPV (benign paroxysmal positional vertigo) (Acute) HTN (hypertension) (Acute) Mandible pain (Acute) Moderate recurrent major depression (Acute) Anxiety (Acute) Insomnia (Acute) Migraines (Acute) GERD (gastroesophageal reflux disease) (Acute) Pure hypercholesterolemia (Acute) Past Medical History Medical History (Updated 02/19/25 @ 00:02 by Kenji He) Evaluation by medical service required Back pain Arthritis Asthma Wears dentures COPD (chronic obstructive pulmonary disease) HLD (hyperlipidemia) HTN (hypertension) Seasonal allergies Mandible pain Moderate recurrent major depression Anxiety Insomnia Migraines GERD (gastroesophageal reflux disease) Pure hypercholesterolemia Family History Family History Father Cancer Mother Pancreatic cancer Brother Pancreatic cancer Daughter Breast cancer Family/Other FH: mental illness Substance use disorder Maternal Grandmother Diabetes Family history of problems with anesthesia: No Surgical History Surgical History Hx of colonoscopy H/O rectal polypectomy History of cholecystectomy History of repair of rectocele History of bilateral cataract extraction History of sinus surgery History of Problems with Anesthesia: No Social History Social History Household Members: Other Household Members Other:: daughter Housing: House Are you a primary customer care assistant to a significant other at home: No Do you presently have visiting nurse or other home services: No Alcohol intake: never Comment: COUNTS CORRECT Patient Tobacco Use Status: Former Tobacco user Tobacco use type: Cigarette Cigarettes Per Day: 4 Years Smoked: Started around age 21, on and off. quit 09/2024 Smoked in Last 30 Days: No e-Cigarette/Vaping Use: Never Used Patient Interested in Nicotine Replacement: Yes Patient Given Instructions on How to Stop Smoking: Yes Date Education Initiated: 02/16/25 Second Hand Smoke Exposure: No Use of substances other than those prescribed or required for medical reasons: No Currently Displaying Signs/Symptoms of Drug Intoxication Withdrawal: No Have you been hit, kicked, punched, or otherwise hurt by someone within the past year? If so, by whom?: No Do you feel safe in your current relationship?: No Current Relationship Is there a partner from a previous relationship who is making you feel unsafe now?: No Are you made to feel afraid or neglected: No Spiritual Healthcare Practices: none Congregational Healthcare Practices: none Cultural Healthcare Practices: none Are you DNR?: No Advance Directives: Yes Advance Directives Information Provided: No Advance Directives on File: Yes Advance Directives Date on File: 07/12/09 Do you have a plan to hurt others: No Plan Recently lost weight without trying: No Nutrition Risks: No Nutritional Risk Patient : No : No Poor oral hygiene: No service: No Current occupational status: disabled Cognitive needs: Yes Hearing needs: No Vision needs: Yes Meds Allergies Allergy/AdvReac Type Severity Reaction Status Date / Time trazodone Allergy Intermediate nausea Verified 02/16/25 07:58 Home Medications ?Medication ?Instructions ?Recorded ?Confirmed ?Last Taken ?Type quetiapine 25 mg tablet 25 mg PO DAILY 01/19/25 02/16/25 02/13/25 History alendronate 70 mg tablet 70 mg PO SA 02/16/25 02/16/25 02/13/25 History nicotine 7 mg/24 hr daily 1 patch topical DAILY PRN Smoking 02/16/25 02/16/25 Unknown History transdermal patch Cessation Exam Height,Weight and Vital Signs: Height 5 ft 3 in Weight 59.8 kg Last Vital Signs Pulse 90 04/29/25 09:26 Resp 16 01/19/25 09:26 BP 140/75 H 01/19/25 09:26 Pulse Ox 98 01/19/25 09:26 O2 Del Method Room Air 01/19/25 09:26 Narrative Narrative: EKG 11/2024 Vent. Rate : 81 BPM Atrial Rate : 81 BPM P-R Int : 228 ms QRS Dur : 82 ms QT Int : 386 ms P-R-T Axes : 65 33 60 degrees QTcB Int : 448 ms Sinus rhythm with 1st degree A-V block Low voltage QRS Borderline ECG When compared with ECG of 05-Dec-2021 07:44, No significant change was found Airway Mallampati Class: II TM Dist: >3cm Neck ROM: Full Denture: Upper and Lower Heart: RRR Lungs: CTAB Assessment and Plan Assessment Anesthesia Assessment: Anesthesia Plan Discussed, Smoking Cess. Discussed (quit 09/2024) and PAT Visit Final Anesthetic Review Family History of Problems with Anesthesia: No History of Problems with Anesthesia: No
[2025-01-19 11:43] LABS: MRSA Nasal PCR NEGATIVE (Negative); SA Nasal PCR POSITIVE (Negative)
[2025-02-11 09:44] LABS: MANUAL DIFF FLAG NO
[2025-02-11 10:06] LABS: Basophils Percent Auto 0.5 % (0-2); Eosinophils Absolute Auto 0.4 X10*3/uL (0.0-0.4); Eosinophils Percent Auto 6.3 % (0-4); Hematocrit 36.6 % (37.0-47.0); Hemoglobin 11.9 g/dl (12.0-16.0); Imm Gran Abs Auto 0.01 X10*3/uL (0.00-0.03); Imm Gran Pct Auto 0.2 % (0.0-0.4); Lymphocytes Absolute Auto 1.9 X10*3/uL (1.2-4.9); Lymphocytes Percent Auto 32.9 % (20-40); Mean Corpuscular HGB Conc 32.5 g/dl (31.0-35.0); Mean Corpuscular Hemoglobin 31.5 pg (27.0-33.0); Mean Corpuscular Volume 96.8 fL (80.0-98.0); Mean Platelet Volume 8.2 fL (9.4-12.3); Monocytes Absolute Auto 0.5 X10*3/uL (0.1-1.2); Monocytes Percent Auto 8.1 % (2-11); Platelet Count 316 X10*3/uL (160-400); Red Blood Count 3.78 X10*6/uL (4.20-5.50); Red Cell Distribution Width 13.2 % (11.0-16.0); White Blood Count 5.7 X10*3/uL (4.8-10.8)
[2025-02-11 11:49] LABS: Alanine Aminotransferase 12 U/L (0-31); Albumin Level 3.9 g/dL (3.5-5.0); Alkaline Phosphatase 93 U/L (39-117); Anion Gap 13 (12-20); Aspartate Amino Transferase 28 U/L (5-31); Bilirubin Total 0.3 mg/dL (0.0-1.0); Blood Urea Nitrogen 14 mg/dL (9-16); Calcium 8.8 mg/dL (8.4-10.2); Carbon Dioxide 24 mmol/L (22-29); Chloride 110 mmol/L (96-108); Cholesterol 171 mg/dL (<200); Creatinine Clr Calc Pharmacy 26.3; Estimated Glomerular Filt Rate 38; Glucose Fasting 69 mg/dL (60-99); Glucose Random 69 mg/dL (60-115); HDL Cholesterol 55 mg/dL (>40); LDL Cholesterol Calculated 85 mg/dL (<100); Potassium 4.9 mmol/L (3.3-5.1); Sodium 142 mmol/L (135-145); Triglycerides 158 mg/dL (<150)
[2025-02-11 12:00] LABS: Vitamin D 25-OH Total 38.3 ng/mL (>30)
[2025-02-16] VITALS (10 sets, daily range): BP systolic 102–164; BP diastolic 54–74; PULSE 48–73; RESP 12–20; TEMP 36–37.7; O2SAT 92–99
--- NOTE | ~2025-02-16 | US_ITS ---
EXAMINATION: US TRIPLEX LOWER EXTREMITY, RIGHT CLINICAL INFORMATION: Swelling status post arthroplasty. Rule out DVT. COMPARISON: None available. TECHNIQUE: Color-flow triplex imaging with spectral analysis and compression Doppler were performed on the right lower extremity. FINDINGS: Respiratory variation, normal compression and augmented flow are noted throughout the right lower extremity. The visualized common femoral vein, superficial femoral vein, profunda femoral vein, popliteal vein and midcalf posterior tibial venous segments show no evidence of deep venous thrombosis. Could not evaluate the distal femoral vein and popliteal veins due to dressings from arthroplasty. Could not visualize the peroneal vein. There is no Avalos's cyst. US/US venous duplex LE RT IMPRESSION: No evidence of deep venous thrombosis involving the right lower extremity. Electronically signed by: Tom Jean MD 02/19/2025 09:38 AM EDT
--- NOTE | ~2025-02-16 | XR_ITS ---
EXAMINATION: XR KNEE, RIGHT CLINICAL INFORMATION: rt tka COMPARISON: February 11, 2025. TECHNIQUE: AP and lateral views of the right knee. FINDINGS: There is a metallic prosthesis well-seated in the osseous femoral condyles and tibial plateau. Normal alignment. No acute cortical disruption. Margarito overlapping the right knee. Subcutaneous emphysema. There appears to be cement in the tibial and likely femoral components. XR/XR knee RT 2V IMPRESSION: Total right knee arthroplasty without gross malalignment.. Electronically signed by: Jerry Blount MD 02/16/2025 12:24 PM EDT
--- NOTE | 2025-02-16 07:24 | MHC.SHP ---
Pre-Procedural Eval Section A - 24 Hr Update-Section A only Date of Service: 02/16/25 The patient is an INPATIENT: No Changes since office visit: No Cold of Flu in the past 2 weeks, No New Medical Problems, No Changes in Medication and No Patient answered all questions The patient has been examined within 24 hours of the surgical procedure. The History & Physical has been completed within 30 days and I have reviewed it.: Yes Section B - Complete if H&P > 30 days Chief Complaint: Unilateral primary osteoarthritis, right knee Allergies: Allergies Allergy/AdvReac Type Severity Reaction Status Date / Time trazodone Allergy Intermediate nausea Verified 02/11/25 08:43 Plan I have reviewed the history and physical and performed a pertinent physical examination on my patient. No changes have occurred unless specified. Time Spent With Patient Time: Total time managing care of this patient today ____ minutes.
[2025-02-16 07:35] LABS: Hematocrit 38.4 % (37.0-47.0); Hemoglobin 12.5 g/dl (12.0-16.0)
[2025-02-16] MEDS: Lactated Ringers 1,000 ML 100 ML IVCONT ×3 (08:01→23:58)
[2025-02-16] MEDS: Acetaminophen 1,000 MG/100 ML PIGGYBACK 400 MG IV (10:05)
[2025-02-16] MEDS: ceFAZolin Sodium/Dextrose,Iso 2 GM/50 ML PIGGYBACK IV ×2 (10:05→15:32)
--- NOTE | 2025-02-16 11:47 | PM.OP ---
Brief Operative Note Date of Service: 02/16/25 Pre-op diagnosis: right knee OA Post-op diagnosis: same Procedure: Right TKA Implants: Tyson Triathlon posterior stabilized cemented 11/24/13ps/32a Surgeon: Arya Cintron MD Anesthesia: MAC and regional Was an Business Solutions Architect used for this Procedure?: Yes Business Solutions Architect: Lily Mcgowan Estimated blood loss (mL): 25 Tourniquet time (min): 65 Pathology: other Condition: stable Disposition: PACU
--- NOTE | 2025-02-16 14:09 | PHA.MEDREC ---
Addendum entered by Cal Ramirez RP 02/16/25 14:30: Reviewed by [facility] Original Note: Pharmacy Consult ? Medication Reconciliation Pharmacy has reviewed the medication reconciliation done by nursing. Spoke to patient through leguillon debeader service to confirm med list. Patient states she is no longer taking Clotrimazole 1% cream, and Diclofenac sod 1% gel. Patient confirmed Alendronate 70 mg is every sat sometimes on sun when patient forget to take it. last took 02/13/25.
--- NOTE | 2025-02-16 14:36 | P.CONIM_ITS ---
History of Present Illness Data of Consult Service Date: 02/16/25 <John Montgomery MD - Last Filed: 02/16/25 15:35> Primary Care Provider: Socorro Short MD <John Montgomery MD - Last Filed: 02/16/25 15:35> HPI Reason for consult: medical care <John Montgomery MD - Last Filed: 02/16/25 15:35> Medical management <Mary Doshi DNP - Last Filed: 02/16/25 16:19> an 84 years old lady <John Montgomery MD - Last Filed: 02/16/25 15:35> 84-year-old female with a past medical history of arthritis, asthma, COPD, hypertension, hyperlipidemia, seasonal allergies, major depressive disorder, anxiety, insomnia, migraines, and GERD who is admitted to [facility] to undergo an elective right total knee arthroplasty with Dr. Cintron. She tolerated the procedure well and was discharged to PACU in stable condition, minimal blood loss of 25 cc. Patient has Asthma-COPD overlap syndrome and a history of pulmonary nodules, followed by Dr. Hernandez. <Mary Doshi DNP - Last Filed: 02/16/25 16:19> Review of Systems 2 Review of Systems: Denies any shortness of breath, chest pain, dizziness, lightheadedness, abdominal pain or discomfort, nausea vomiting or diarrhea <Mray Doshi DNP - Last Filed: 02/16/25 16:19> [facility] Medical History: Medical History (Updated 02/16/25 @ 16:01 by Mary Doshi DNP) Back pain Arthritis Asthma Wears dentures COPD (chronic obstructive pulmonary disease) HLD (hyperlipidemia) HTN (hypertension) Seasonal allergies Mandible pain Moderate recurrent major depression Anxiety Insomnia Migraines GERD (gastroesophageal reflux disease) Pure hypercholesterolemia <John Montgomery MD - Last Filed: 02/16/25 15:35> Family History: Family History Father Cancer Mother Pancreatic cancer Brother Pancreatic cancer Daughter Breast cancer Family/Other FH: mental illness Substance use disorder Maternal Grandmother Diabetes <John Montgomery MD - Last Filed: 02/16/25 15:35> Surgical History: Surgical History Hx of colonoscopy H/O rectal polypectomy History of cholecystectomy History of repair of rectocele History of bilateral cataract extraction History of sinus surgery <John Montgomery MD - Last Filed: 02/16/25 15:35> Social History: Social History Household Members: Other Household Members Other:: daughter Housing: House Are you a primary primary care nurse practitioner to a significant other at home: No Do you presently have visiting nurse or other home services: No Alcohol intake: never Comment: COUNTS CORRECT Patient Tobacco Use Status: Former Tobacco user Tobacco use type: Cigarette Cigarettes Per Day: 4 Years Smoked: Started around age 21, on and off. quit 09/2024 e-Cigarette/Vaping Use: Never Used Second Hand Smoke Exposure: No Advance Directives Date on File: 07/12/09 service: No Current occupational status: disabled Cognitive needs: Yes Hearing needs: No Vision needs: Yes <John Montgomery MD - Last Filed: 02/16/25 15:35> Meds Allergies/Adverse reactions: Allergies Allergy/AdvReac Type Severity Reaction Status Date / Time trazodone Allergy Intermediate nausea Verified 02/16/25 07:58 <John Montgomery MD - Last Filed: 02/16/25 15:35> Active Medications: Current Medications Acetaminophen (Acetaminophen 325 Mg Tablet) 650 mg PO Q6H PRN PRN Reason: Pain, Mild 1-3,fever,headache Albuterol Sulfate (Albuterol Sulfate 90 Mcg 8 Gm Inhaler) 2 puff INHALE Q4H PRN PRN Reason: shortness of breath or cough Clotrimazole (Clotrimazole 1 % Cream 15 Gm Tube) 1 appl TOPICAL BID JAMEY; Protocol Docusate Sodium (Docusate Sodium 100 Mg Capsule) 100 mg PO BID JAMEY Enoxaparin Sodium (Enoxaparin Sodium 30 Mg/0.3 Ml Syringe) 30 mg SUBCUT Q24H JAMEY Fluoxetine HCl (Fluoxetine Hcl 20 Mg Capsule) 40 mg PO DAILY JAMEY Fluticasone Propionate (Fluticasone Propionate Nasal 16 Gm [place]) 1 spray NOSTRIL-B DAILY [facility] Fluticasone/Umeclidinium/Vilanterol (Fluticasone/Umeclidinium/Vilanterol 200/62.5/25 Blst.W.Dev) 1 puff INHALE RDAILY [facility] Hydromorphone HCl (Hydromorphone Hcl 0.5 Mg/0.5 Ml Syringe) 0.25 mg IVPUSH Q4H PRN; Protocol PRN Reason: Pain, Severe (Pain Scale 7-10) Lactated Ringer's (Lr) 1,000 mls @ 100 mls/hr IVCONT .Q10H JAMEY Stop: 02/17/25 08:00 Cefazolin Sodium/Dextrose (Ancef) 2 gm in 50 mls @ 100 mls/hr IV POSTOP ONE Stop: 02/16/25 16:29 Loratadine (Loratadine 10 Mg Tablet) 10 mg PO DAILY [facility] Meclizine HCl (Meclizine Hcl 25 Mg Tablet) 25 mg PO DAILY PRN PRN Reason: motion sickness Nicotine (Nicotine 7 Mg Patch.Td24) 7 mg TRANSDERMA Q24H [facility] Omeprazole (Omeprazole 20 Mg Capsule.Dr) 20 mg PO DAILY@0630 [facility] Ondansetron HCl (Ondansetron Hcl 4 Mg/2 Ml Vial) 4 mg IVPUSH Q8H PRN PRN Reason: Nausea and Vomiting Oxycodone HCl (Oxycodone Hcl Immed Release 5 Mg Tablet) 5 mg PO Q4H PRN PRN Reason: Pain, Moderate(Pain Scale 4-6) Quetiapine Fumarate (Quetiapine Fumarate 25 Mg Tablet) 25 mg PO DAILY [facility] Sodium Chloride (0.9 % Sodium Chloride Flush 3 Ml Syringe) 3 ml IVFLUSH QSHIFT [facility] Sumatriptan Succinate (Sumatriptan Succinate 50 Mg Tablet) 50 mg PO DAILY PRN PRN Reason: migraine headache <John Montgomery MD - Last Filed: 02/16/25 15:35> Home medications: Home Medications ?Medication ?Instructions ?Recorded ?Confirmed ?Last Taken ?Type quetiapine 25 mg tablet 25 mg PO DAILY 01/19/25 02/16/25 02/13/25 History alendronate 70 mg tablet 70 mg PO SA 02/16/25 02/16/25 02/13/25 History nicotine 7 mg/24 hr daily 1 patch topical DAILY PRN Smoking 02/16/25 02/16/25 Unknown History transdermal patch Cessation <John Montgomery MD - Last Filed: 02/16/25 15:35> Physical Exam 2 Vital Signs and Narrative: Vital Signs: Last Vital Signs Temp 97 F 02/16/25 12:30 Pulse 48 L 02/16/25 12:30 Resp 16 02/16/25 12:30 BP 102/57 L 02/16/25 12:30 Pulse Ox 98 02/16/25 12:30 O2 Del Method Room Air 02/16/25 12:30 BMI result Body Mass Index 23.4 <John Montgomery MD - Last Filed: 02/16/25 15:35> CONST: Alert and oriented, in NAD. Well nourished HEENT: Normocephalic, atraumatic, MMM RESP: Lungs clear, RRR even and regular HEART:,RRR, S1, S2. no edema GI:Abdomen Soft NT, ND. + BS times four :Deferred SKIN: Warm dry and intact, no visible lesions or rashes. Surgical dressing dry with no strike through drainage. Cameron wrap in place NEURO:CN II-XII Intact bilaterally, Sensation intact. Speech clear PSYCH: Normal affect <Mary Doshi DNP - Last Filed: 02/16/25 16:19> Results Labs CBC and Chem 7: 02/16/25 07:29 02/11/25 09:42 <John Montgomery MD - Last Filed: 02/16/25 15:35> Imaging Radiologist's Impressions: Impressions Knee X-Ray 02/16/25 11:54 IMPRESSION: Total right knee arthroplasty without gross malalignment.. Electronically signed by: Jerry Blount MD 02/16/2025 12:24 PM EDT <John Montgomery MD - Last Filed: 02/16/25 15:35> Assessment and Plan (1) Evaluation by medical service required: Status: Acute <John Montgomery MD - Last Filed: 05/27/25 15:35> Right total knee replacement Completed 02/16/[address] Cintron Minimal blood loss Pain is controlled at this time, No nausea Pre Op H&H 12.5/38.4. Follow labs Asthma/COPD Continue Albuterol as needed Trelegy ellipta one INH daily Hypertension/hyperlipidemia Resume amlodipine Major depressive disorder/insomnia Continue home fluoxetine and zolpidem 5 mgs PRN Insomnia Ostoarthritis Resume home medications upon D/C Alendronate/Calcium and Vitamin D GERD Continue Omeprazole daily Code status patient is a full code DVT prophylaxis postoperatively Continue Lovenox 30 mg Q 24 hours- duration per orthopedics team <Mary Doshi DNP - Last Filed: 02/16/25 16:19>
[2025-02-16] MEDS: Nicotine 7 MG PATCH.TD24 TRANSDERMA (15:31)
[2025-02-16] MEDS: 0.9 % Sodium Chloride Flush 3 ML SYRINGE IVFLUSH (15:32)
[2025-02-16] MEDS: Acetaminophen 325 MG TABLET 650 MG PO (15:45)
[2025-02-16] MEDS: oxyCODONE HCl Immed Release 5 MG TABLET PO (15:45)
[2025-02-16] MEDS: HYDROmorphone HCl 0.5 MG/0.5 ML SYRINGE 0.25 MG IVPUSH (18:45)
--- NOTE | 2025-02-16 20:34 | P.DS_ITS ---
DS: Providers Provider Date of Service: 02/22/25 <GURMEET Kay - Last Filed: 02/22/25 14:14> Date of discharge: 02/22/25 <GURMEET Kay - Last Filed: 02/22/25 14:14> Primary care physician: Socorro Short MD <Charissa Colon PA-C - Last Filed: 02/19/25 08:07> Consults: 02/16/25 13:44 Consult to Hospitalist Routine Comment: Consulting Provider: [facility] [place] [facility] Reason For Exam: medical management <Charissa Colon PA-C - Last Filed: 02/19/25 08:07> DS: Summary Hospital Course Hospital Course: The patient underwent a successful right total knee arthroplasty, they were transferred to PACU and then to the floor to recover. During their stay, their vitals were stable, afebrile at 97.3. Labs were unremarkable, H/H 8.7/27.0. POD 1 they were started on Lovenox for DVT ppx, they also received Physical Therapy services. Prior to discharge, their dressing was clean dry and intact and the plan was to be discharged home with VNA services. <Charissa Colon PA-C - Last Filed: 02/19/25 08:07> Status at Discharge Cognitive/behavioral status at discharge: Stable for discharge <GURMEET Kay - Last Filed: 02/22/25 14:14> Time Attestation Discharge Coordination Time (in mins): 30 <Charissa Colon PA-C - Last Filed: 02/19/25 08:07> Quality: Safe Use of Opioids Does Pt have an Active Cancer Diagnosis on the Problem List?: No <Charissa Colon PA-C - Last Filed: 02/19/25 08:07> Quality: Stroke Does the patient have a stroke diagnosis?: No <Charissa Colon PA-C - Last Filed: 02/19/25 08:07> Physical Exam Vital Signs: Vital Signs: Last Vital Signs Temp 98.6 F 02/16/25 19:21 Pulse 63 02/16/25 19:21 Resp 18 02/16/25 19:21 BP 117/63 02/16/25 19:21 Pulse Ox 95 02/16/25 19:21 O2 Del Method Room Air 02/16/25 19:21 BMI result Body Mass Index 23.4 <Charissa Colon PA-C - Last Filed: 02/19/25 08:07> Const: General: cooperative, healthy appearing and no acute distress <JOSÉ GalvinC - Last Filed: 02/19/25 08:07> Resp: Effort & Inspection: normal respiratory effort and able to speak in complete sentences <JOSÉ GalvinC - Last Filed: 02/19/25 08:07> Cardio: Rate: regular rate <Charissa Colon PA-C - Last Filed: 02/19/25 08:07> Peripheral pulses: Peripheral pulses 2+ throughout <JOSÉ GalvinC - Last Filed: 02/19/25 08:07> GI: Palpation (GI): Soft to palpation <JOSÉ GalvinC - Last Filed: 02/19/25 08:07> Skin: Lesions: no lesions <JOSÉ GalvinC - Last Filed: 02/19/25 08:07> Rashes: no rashes <JOSÉ GalvinC - Last Filed: 02/19/25 08:07> Extrem: Other: right knee dressing is c/d/i. Able to dorsi/plantar flex. Calf is supple and nontender. Sensation intact. Pedal pulse intact. <Charissa Colon PA-C - Last Filed: 02/19/25 08:07> DS: Data Data Completed and Pending Pending studies at discharge: Pending at discharge 02/16/25 11:21 Surgical [PTH] Routine <Charissa Colon PA-C - Last Filed: 02/19/25 08:07> Labs on day of discharge: Laboratory Results - last 24 hr 02/16/25 07:29 Hgb 12.5 Hct 38.4 <Charissa Colon PA-C - Last Filed: 02/19/25 08:07> Discharge Plan Discharge Patient Disposition: Xfer Inpatient Rehab Fac <Charissa Colon PA-C - Last Filed: 02/19/25 08:07> Referrals: [facility] [Outside] - 1 Week Lily Mcgowan PA-C [Physician Sales Representative [employer]] - 03/04/25 12:30 pm <Charissa Colon PA-C - Last Filed: 02/19/25 08:07> Discharge Medications: New acetaminophen 325 mg Tablet 650 mg PO Q6H PRN (Reason: Pain, Mild 1-3,Fever,Headache) 30 Days Qty: 240 0RF docusate sodium 100 mg Capsule 100 mg PO BID 30 Days Qty: 60 0RF oxycodone 5 mg Tablet 5 mg PO Q4H PRN (Reason: Pain, Moderate(Pain Scale 4-6)) 7 Days Qty: 42 0RF Rx Instructions: Partial Fill upon patient request. enoxaparin 30 mg/0.3 mL Syringe 30 mg subcut Q24H 40 Days Qty: 12 0RF Continued fluoxetine 40 mg capsule 40 mg PO QAM 90 Days Qty: 90 1RF meclizine 25 mg tablet 25 mg PO DAILY PRN (Reason: motion sickness) 30 Days Qty: 30 6RF Trelegy Ellipta 200-62.5-25 mcg blister with device 1 ea PO DAILY 60 Days Qty: 60 6RF cholecalciferol (vitamin D3) 25 mcg (1,000 unit) tablet 25 mcg PO DAILY 90 Days Qty: 90 1RF albuterol sulfate 90 mcg/actuation HFA aerosol inhaler 2 puff inhalation Q4-6H PRN (Reason: shortness of breath or cough) Qty: 1 3RF (DME) walker Misc See Rx Instructions .MEDSUPPLY Qty: 1 0RF Rx Instructions: Folding Front wheeled walker duration 99 days nicotine 7 mg/24 hr patch 24 hour 1 patch transdermal Q24H 14 Days Qty: 14 1RF zolpidem 10 mg tablet 10 mg PO BEDTIME PRN (Reason: insomnia) 30 Days Qty: 30 0RF quetiapine 25 mg tablet 25 mg PO DAILY alendronate 70 mg tablet 70 mg PO SA Rx Instructions: take 1 tablet by mouth once a week with 6 to 8 oz of water 30 min before first food of day. do not lie down for 30 minutes nicotine 7 mg/24 hr patch 24 hour 1 patch topical DAILY PRN (Reason: Smoking Cessation) Rx Instructions: APPLY 1 PATCH TOPICALLY TO THE SKIN IN THE MORNING DO NOT SMOKE WHILE USING PATCH FOR FOURTEEN DAYS sumatriptan succinate 50 mg tablet 50 mg PO DAILY PRN (Reason: migraine headache) 90 Days Qty: 27 1RF omeprazole 20 mg capsule,delayed release(DR/EC) 20 mg PO DAILY 90 Days Qty: 90 3RF fluticasone propionate [Flonase Allergy Relief] 50 mcg/actuation spray,suspension 1 spray intranasal DAILY 30 Days Qty: 9.9 6RF Rx Instructions: administer into each nostril amlodipine 5 mg tablet 5 mg PO DAILY 90 Days Qty: 90 3RF atorvastatin 80 mg tablet 80 mg PO DAILY 90 Days Qty: 90 3RF calcium carbonate-vitamin D3 600 mg-10 mcg (400 unit) tablet 1 tab PO DAILY Qty: 30 11RF cetirizine 10 mg tablet 10 mg PO DAILY 90 Days Qty: 90 1RF Held acetaminophen 500 mg tablet 500 mg PO Q6H PRN (Reason: pain) 30 Days Qty: 120 6RF Hold Instructions: Resume on 03/18/25. No Action docusate sodium 100 mg capsule 100 mg PO BID PRN (Reason: constipation) 90 Days Qty: 180 3RF <Charissa Colon PA-C - Last Filed: 02/19/25 08:07> Discharge Orders: Discharge Order (Routine); Ordered 02/22/25 Ordered By: Swapnil Ga <Charissa Colon PA-C - Last Filed: 02/19/25 08:07> Diet: Advance to usual diet <Charissa Colon PA-C - Last Filed: 02/19/25 08:07> Advance to usual diet <GURMEET Kay Last Filed: 02/22/25 14:14> Activity on Discharge: Use cane or walker <Charissa Colon PA-C - Last Filed: 02/19/25 08:07> Use cane or walker <GURMEET Kay Last Filed: 02/22/25 14:14> Activity Restrictions/Additional Instructions: Physical Therapy for ROM 0-120, quad strength, gait training. Use walker for ambulation Limit stair climbing, No shower, No tub bath, No driving Continue Lovenox for anticoagulant x 6 weeks Keep Aquacel dressing clean, dry and intact. Follow up with orthopedics in 2 weeks <Charissa Colon PA-C - Last Filed: 02/19/25 08:07> Print Language: German <Charissa Colon PA-C - Last Filed: 02/19/25 08:07>
--- NOTE | 2025-02-16 20:36 | P.F2F_ITS ---
Service Date Service Date: 02/16/25 Encounter Date of encounter: 02/17/25 Reasons for Services Signs and symptoms assessed: s/p RTKA Pt. is considered homebound due to recent surgery. Unable to drive, poor balance, poor gait mechanics. Reason for physical therapy: home safety and mobility, therapeutic exercises, restore joint function, gait/transfer training and ADL training Homebound: Leaving the home is medically contraindicated at this time without the asist of a device and/or another person due th the listed conditions above and below. Reason homebound: unsteady gait / fall risk, leg weakness, pain with ambulation, pain with transfers and unable to drive Certification: Based on the above findings, I certify that this patient is confined to the home and needs intermittent penitentiary care, physical therapy and/or speech therapy, or continues to need occupational therapy. The patient is under my care, and I have initiated the establishment of the plan of care. The patient will be followed by a physician who will periodically review the plan of care. Time Spent With Patient Time: Total time managing care of this patient today ____ minutes.
[2025-02-16] MEDS: Zolpidem Tartrate 5 MG TABLET PO (22:38)
[2025-02-17] VITALS (8 sets, daily range): BP systolic 138–150; BP diastolic 62–76; PULSE 65–83; RESP 16–20; TEMP 36.5–37.1; O2SAT 92–95
[2025-02-17] MEDS: HYDROmorphone HCl 0.5 MG/0.5 ML SYRINGE 0.25 MG IVPUSH ×2 (02:26→21:14)
[2025-02-17] MEDS: Omeprazole 20 MG CAPSULE.DR PO (05:41)
[2025-02-17 07:18] LABS: MANUAL DIFF FLAG NO
[2025-02-17 07:25] LABS: Basophils Percent Auto 0.4 % (0-2); Eosinophils Percent Auto 0.1 % (0-4); Hemoglobin 10.5 g/dl (12.0-16.0); Imm Gran Abs Auto 0.04 X10*3/uL (0.00-0.03); Imm Gran Pct Auto 0.5 % (0.0-0.4); Lymphocytes Absolute Auto 1.3 X10*3/uL (1.2-4.9); Lymphocytes Percent Auto 14.7 % (20-40); Mean Corpuscular HGB Conc 31.8 g/dl (31.0-35.0); Mean Corpuscular Hemoglobin 30.9 pg (27.0-33.0); Mean Corpuscular Volume 97.1 fL (80.0-98.0); Mean Platelet Volume 8.6 fL (9.4-12.3); Monocytes Absolute Auto 1.2 X10*3/uL (0.1-1.2); Monocytes Percent Auto 14.3 % (2-11); Platelet Count 274 X10*3/uL (160-400); Red Cell Distribution Width 13.2 % (11.0-16.0); White Blood Count 8.6 X10*3/uL (4.8-10.8)
[2025-02-17] MEDS: Loratadine 10 MG TABLET PO (07:29)
[2025-02-17] MEDS: Atorvastatin Calcium 80 MG TABLET PO (07:29)
[2025-02-17] MEDS: amLODIPine Besylate 5 MG TABLET PO (07:29)
[2025-02-17] MEDS: QUEtiapine Fumarate 25 MG TABLET PO (07:29)
[2025-02-17] MEDS: FLUoxetine HCl 20 MG CAPSULE 40 MG PO (07:30)
[2025-02-17] MEDS: Acetaminophen 325 MG TABLET 650 MG PO (07:30)
[2025-02-17] MEDS: Docusate Sodium 100 MG CAPSULE PO ×2 (07:30→21:08)
[2025-02-17] MEDS: oxyCODONE HCl Immed Release 5 MG TABLET PO ×3 (07:30→16:08)
[2025-02-17] MEDS: Fluticasone Propionate Nasal 16 GM SPRAY 1 SPRAY NOSTRIL-B (07:31)
[2025-02-17] MEDS: 0.9 % Sodium Chloride Flush 3 ML SYRINGE IVFLUSH ×3 (07:31→21:22)
--- NOTE | 2025-02-17 07:31 | PM.PNORT ---
Subjective Subjective Date of Service: 02/17/25 Interval history: POD1 s/p RTKA Patient is resting in bed comfortably No overnight events Pain is managed No additional complaints Physical Exam Vital Signs: Vital Signs: Last Vital Signs Temp 98.7 F 02/17/25 07:12 Pulse 68 02/17/25 07:12 Resp 18 02/17/25 07:12 BP 150/62 H 02/17/25 07:12 Pulse Ox 95 02/17/25 07:12 O2 Del Method Room Air 02/17/25 07:12 BMI result Body Mass Index 23.4 Const: General: cooperative, healthy appearing and no acute distress Resp: Effort & Inspection: normal respiratory effort and able to speak in complete sentences Cardio: Rate: regular rate Peripheral pulses: Peripheral pulses 2+ throughout GI: Palpation (GI): Soft to palpation Skin: Lesions: no lesions Rashes: no rashes Extrem: Other: right knee dressing is c/d/i. Able to dorsi/plantar flex. Calf is supple and nontender. Sensation intact. Pedal pulse intact. Procedures Date of Service Date of Service: 02/17/25 Progress Note: A&P Assessment and plan (1) Status post total knee replacement, right: Status: Acute Plan Continue pain mgmnt Begin Lovenox for dvt ppx due to CKDIII begin PT for RTKA - WBAT Dispo planning-Pending PT eval, pain mgmnt Time Spent With Patient Time: Total time managing care of this patient today ____ minutes. Quality Stroke Does the patient have a stroke diagnosis?: No VTE Prior VTE?: No VTE Risk Level:: Medical - moderate - high VTE Device Contraindication: N/A - Device Ordered VTE Drug Contraindication: N/A - Med Ordered
[2025-02-17] MEDS: Fluticasone/Umeclidinium/Vilanterol 200/62.5/25 BLST.W.DEV 1 PUFF INHALE (07:36)
[2025-02-17 07:47] LABS: Anion Gap 14 (12-20); Blood Urea Nitrogen 22 mg/dL (9-16); Calcium 8.5 mg/dL (8.4-10.2); Carbon Dioxide 23 mmol/L (22-29); Chloride 104 mmol/L (96-108); Creatinine Clr Calc Pharmacy 27.7; Estimated Glomerular Filt Rate 40; Glucose Fasting 115 mg/dL (60-99); Potassium 4.7 mmol/L (3.3-5.1); Sodium 136 mmol/L (135-145)
[2025-02-17 09:11] LABS: Anion Gap 11 (12-20); Blood Urea Nitrogen 20 mg/dL (9-16); Calcium 8.2 mg/dL (8.4-10.2); Carbon Dioxide 22 mmol/L (22-29); Chloride 104 mmol/L (96-108); Creatinine Clr Calc Pharmacy 28.6; Estimated Glomerular Filt Rate 42; Glucose Random 133 mg/dL (60-115); Potassium 4.4 mmol/L (3.3-5.1); Sodium 133 mmol/L (135-145)
[2025-02-17] MEDS: Clotrimazole 1 % Cream 15 GM TUBE 1 APPL TOPICAL ×2 (10:41→21:08)
[2025-02-17] MEDS: Enoxaparin Sodium 30 MG/0.3 ML SYRINGE SUBCUT (10:43)
[2025-02-17] MEDS: Nicotine 7 MG PATCH.TD24 TRANSDERMA (11:36)
--- NOTE | 2025-02-17 14:54 | MHC.CM.PN ---
PT LIVES WITH DGTER WILL NEED STR WHEN DCD REFERALS MADE
[2025-02-17] MEDS: Zolpidem Tartrate 5 MG TABLET 10 MG PO (21:13)
[2025-02-18] VITALS (7 sets, daily range): BP systolic 112–149; BP diastolic 56–68; PULSE 65–77; RESP 16–20; TEMP 36–37.3; O2SAT 90–93
[2025-02-18] MEDS: HYDROmorphone HCl 0.5 MG/0.5 ML SYRINGE 0.25 MG IVPUSH ×4 (03:59→22:55)
[2025-02-18 06:06] LABS: MANUAL DIFF FLAG NO
[2025-02-18] MEDS: Omeprazole 20 MG CAPSULE.DR PO (06:08)
[2025-02-18 06:19] LABS: Basophils Percent Auto 0.1 % (0-2); Hematocrit 31.7 % (37.0-47.0); Hemoglobin 10.8 g/dl (12.0-16.0); Imm Gran Abs Auto 0.04 X10*3/uL (0.00-0.03); Imm Gran Pct Auto 0.4 % (0.0-0.4); Lymphocytes Absolute Auto 1.3 X10*3/uL (1.2-4.9); Lymphocytes Percent Auto 13.7 % (20-40); Mean Corpuscular HGB Conc 34.1 g/dl (31.0-35.0); Mean Corpuscular Volume 94.1 fL (80.0-98.0); Mean Platelet Volume 8.5 fL (9.4-12.3); Monocytes Absolute Auto 1.3 X10*3/uL (0.1-1.2); Monocytes Percent Auto 13.1 % (2-11); Neutrophils Percent Auto 72.7 % (45-73); Platelet Count 260 X10*3/uL (160-400); Red Blood Count 3.37 X10*6/uL (4.20-5.50); Red Cell Distribution Width 12.9 % (11.0-16.0); White Blood Count 9.6 X10*3/uL (4.8-10.8)
[2025-02-18 06:39] LABS: Anion Gap 12 (12-20); Blood Urea Nitrogen 17 mg/dL (9-16); Calcium 8.5 mg/dL (8.4-10.2); Carbon Dioxide 24 mmol/L (22-29); Chloride 99 mmol/L (96-108); Creatinine Clr Calc Pharmacy 35.6; Estimated Glomerular Filt Rate 54; Glucose Fasting 113 mg/dL (60-99); Potassium 4.6 mmol/L (3.3-5.1); Sodium 130 mmol/L (135-145)
[2025-02-18] MEDS: Fluticasone/Umeclidinium/Vilanterol 200/62.5/25 BLST.W.DEV 1 PUFF INHALE (07:52)
[2025-02-18] MEDS: amLODIPine Besylate 5 MG TABLET PO (08:51)
[2025-02-18] MEDS: Atorvastatin Calcium 80 MG TABLET PO (08:51)
[2025-02-18] MEDS: Docusate Sodium 100 MG CAPSULE PO ×2 (08:51→21:57)
[2025-02-18] MEDS: Loratadine 10 MG TABLET PO (08:52)
[2025-02-18] MEDS: FLUoxetine HCl 20 MG CAPSULE 40 MG PO (08:52)
[2025-02-18] MEDS: Clotrimazole 1 % Cream 15 GM TUBE 1 APPL TOPICAL ×2 (08:55→22:01)
--- NOTE | 2025-02-18 09:20 | PM.PNORT ---
Subjective Subjective Date of Service: 02/18/25 Interval history: POD2 s/p RTKA Patient is resting in bed comfortably No overnight events Pain is managed No additional complaints Physical Exam Vital Signs: Vital Signs: Last Vital Signs Temp 99.1 F 02/18/25 07:38 Pulse 74 02/18/25 07:54 Resp 18 02/18/25 07:54 BP 123/61 02/18/25 08:43 Pulse Ox 92 02/18/25 07:38 O2 Del Method Room Air 02/18/25 07:38 BMI result Body Mass Index 23.4 Const: General: cooperative, healthy appearing and no acute distress Resp: Effort & Inspection: normal respiratory effort and able to speak in complete sentences Cardio: Rate: regular rate Peripheral pulses: Peripheral pulses 2+ throughout GI: Palpation (GI): Soft to palpation Skin: Lesions: no lesions Rashes: no rashes Extrem: Other: right knee dressing is c/d/i. Able to dorsi/plantar flex. Calf is supple and nontender. Sensation intact. Pedal pulse intact. Procedures Date of Service Date of Service: 02/18/25 Progress Note: A&P Assessment and plan (1) Status post total knee replacement, right: Status: Acute Plan Continue pain mgmnt Continue Lovenox for dvt ppx due to CKDIII Continue PT for RTKA - WBAT Dispo planning-PT/OT, pain management, rehab placement Time Spent With Patient Time: Total time managing care of this patient today ____ minutes. Quality Stroke Does the patient have a stroke diagnosis?: No VTE Prior VTE?: No VTE Risk Level:: Medical - moderate - high VTE Device Contraindication: N/A - Device Ordered VTE Drug Contraindication: N/A - Med Ordered
--- NOTE | 2025-02-18 10:30 | MHC.CM.PN ---
CM MET WITH PT AND DAUGHTER, THEY HAVE ACCEPTED A BED OFFER FROM [facility] AT [facility] AWARE AND WILL REQUEST INSURANCE AUTH PT WILL DC TO STR AT [facility] TODAY PENDING INSURANCE AUTH BLS TRANSPORT
[2025-02-18] MEDS: Enoxaparin Sodium 30 MG/0.3 ML SYRINGE SUBCUT (10:45)
[2025-02-18] MEDS: Fluticasone Propionate Nasal 16 GM SPRAY 1 SPRAY NOSTRIL-B (10:45)
[2025-02-18] MEDS: oxyCODONE HCl Immed Release 5 MG TABLET PO (10:46)
[2025-02-18] MEDS: QUEtiapine Fumarate 25 MG TABLET PO (11:36)
[2025-02-18] MEDS: Nicotine 7 MG PATCH.TD24 TRANSDERMA (14:14)
[2025-02-18] MEDS: Zolpidem Tartrate 5 MG TABLET 10 MG PO (21:57)
[2025-02-18] MEDS: 0.9 % Sodium Chloride Flush 3 ML SYRINGE IVFLUSH (21:58)
[2025-02-19] VITALS (9 sets, daily range): BP systolic 106–133; BP diastolic 55–62; PULSE 69–89; RESP 16–20; TEMP 36.4–37.4; O2SAT 91–97; BMI 24.5
[2025-02-19] MEDS: HYDROmorphone HCl 0.5 MG/0.5 ML SYRINGE 0.25 MG IVPUSH ×2 (05:19→18:36)
[2025-02-19] MEDS: Omeprazole 20 MG CAPSULE.DR PO (05:19)
[2025-02-19 06:51] LABS: MANUAL DIFF FLAG NO
[2025-02-19 07:00] LABS: Basophils Percent Auto 0.1 % (0-2); Eosinophils Percent Auto 0.1 % (0-4); Hematocrit 29.7 % (37.0-47.0); Hemoglobin 9.8 g/dl (12.0-16.0); Imm Gran Abs Auto 0.04 X10*3/uL (0.00-0.03); Imm Gran Pct Auto 0.5 % (0.0-0.4); Lymphocytes Absolute Auto 1.4 X10*3/uL (1.2-4.9); Lymphocytes Percent Auto 17.6 % (20-40); Mean Platelet Volume 8.5 fL (9.4-12.3); Monocytes Percent Auto 12.5 % (2-11); Neutrophils Absolute Auto 5.4 x10*3/uL (2.0-8.3); Neutrophils Percent Auto 69.2 % (45-73); Platelet Count 245 X10*3/uL (160-400); Red Blood Count 3.16 X10*6/uL (4.20-5.50); Red Cell Distribution Width 12.7 % (11.0-16.0); White Blood Count 7.7 X10*3/uL (4.8-10.8)
[2025-02-19 07:13] LABS: Anion Gap 11 (12-20); Blood Urea Nitrogen 20 mg/dL (9-16); Calcium 8.2 mg/dL (8.4-10.2); Carbon Dioxide 24 mmol/L (22-29); Chloride 100 mmol/L (96-108); Creatinine Clr Calc Pharmacy 30.6; Estimated Glomerular Filt Rate 45; Glucose Fasting 99 mg/dL (60-99); Potassium 4.4 mmol/L (3.3-5.1); Sodium 131 mmol/L (135-145)
[2025-02-19] MEDS: oxyCODONE HCl Immed Release 5 MG TABLET PO ×2 (07:35→22:24)
[2025-02-19] MEDS: amLODIPine Besylate 5 MG TABLET PO (07:36)
[2025-02-19] MEDS: Docusate Sodium 100 MG CAPSULE PO ×2 (07:36→21:14)
[2025-02-19] MEDS: Loratadine 10 MG TABLET PO (07:36)
[2025-02-19] MEDS: QUEtiapine Fumarate 25 MG TABLET PO (07:36)
[2025-02-19] MEDS: FLUoxetine HCl 20 MG CAPSULE 40 MG PO (07:36)
[2025-02-19] MEDS: Atorvastatin Calcium 80 MG TABLET PO (07:36)
[2025-02-19] MEDS: Clotrimazole 1 % Cream 15 GM TUBE 1 APPL TOPICAL ×2 (07:37→21:20)
[2025-02-19] MEDS: Fluticasone Propionate Nasal 16 GM SPRAY 1 SPRAY NOSTRIL-B (07:37)
--- NOTE | 2025-02-19 09:00 | PM.PNORT ---
Subjective Subjective Date of Service: 02/19/25 Interval history: POD3 s/p RTKA Patient is resting in bed comfortably No overnight events Pain is fairly well managed Patient reports swelling and pain in the right calf and ankle No additional complaints Physical Exam Vital Signs: Vital Signs: Last Vital Signs Temp 98.5 F 02/19/25 07:26 Pulse 72 02/19/25 07:26 Resp 18 02/19/25 07:26 BP 112/58 L 02/19/25 07:26 Pulse Ox 94 02/19/25 07:26 O2 Del Method Room Air 02/19/25 07:26 BMI result Body Mass Index 24.5 Const: General: cooperative, healthy appearing and no acute distress Resp: Effort & Inspection: normal respiratory effort and able to speak in complete sentences Cardio: Rate: regular rate Peripheral pulses: Peripheral pulses 2+ throughout GI: Palpation (GI): Soft to palpation Skin: Lesions: no lesions Rashes: no rashes Extrem: Other: right knee dressing is c/d/i. Able to dorsi/plantar flex. Calf is swollen, tender to palpation, slightly erythematous. Sensation intact. Pedal pulse intact. Procedures Date of Service Date of Service: 02/19/25 Progress Note: A&P Assessment and plan (1) Status post total knee replacement, right: Status: Acute Plan Continue pain mgmnt Continue Lovenox for dvt ppx due to CKDIII Venous duplex ultrasound of right lower extremity ordered to rule out DVT due to increased swelling, redness, pain today Continue PT for RTKA - WBAT Dispo planning-PT/OT, pain management, rehab placement Time Spent With Patient Time: Total time managing care of this patient today ____ minutes. Quality Stroke Does the patient have a stroke diagnosis?: No VTE Prior VTE?: No VTE Risk Level:: Medical - moderate - high VTE Device Contraindication: N/A - Device Ordered VTE Drug Contraindication: N/A - Med Ordered
[2025-02-19] MEDS: Enoxaparin Sodium 30 MG/0.3 ML SYRINGE SUBCUT (10:41)
[2025-02-19] MEDS: Nicotine 7 MG PATCH.TD24 TRANSDERMA (15:23)
--- NOTE | 2025-02-19 15:59 | MHC.CM.PN ---
Addendum entered by Geena Hannon 02/22/25 10:23: [facility] STILL PENDING UPDATES SENT Original Note: PT MEDICALLY CLEARED TO DC TO [facility] PENDING INSURANCE AUTH AUTH IS STILL PENDING
[2025-02-19] MEDS: Zolpidem Tartrate 5 MG TABLET 10 MG PO (21:16)
[2025-02-19] MEDS: 0.9 % Sodium Chloride Flush 3 ML SYRINGE IVFLUSH (21:16)
[2025-02-19] MEDS: polyethylene glycoL 3350 17 GM POWD.PACK PO (22:52)
[2025-02-20] VITALS (9 sets, daily range): BP systolic 102–122; BP diastolic 55–58; PULSE 68–76; RESP 12–18; TEMP 36.2–37.4; O2SAT 92–95
[2025-02-20] MEDS: Omeprazole 20 MG CAPSULE.DR PO (06:23)
[2025-02-20] MEDS: Fluticasone/Umeclidinium/Vilanterol 200/62.5/25 BLST.W.DEV 1 PUFF INHALE (08:02)
[2025-02-20 08:10] LABS: MANUAL DIFF FLAG NO
[2025-02-20 08:12] LABS: Basophils Percent Auto 0.3 % (0-2); Eosinophils Percent Auto 0.6 % (0-4); Hematocrit 29.5 % (37.0-47.0); Hemoglobin 9.8 g/dl (12.0-16.0); Imm Gran Abs Auto 0.02 X10*3/uL (0.00-0.03); Imm Gran Pct Auto 0.3 % (0.0-0.4); Lymphocytes Absolute Auto 1.6 X10*3/uL (1.2-4.9); Lymphocytes Percent Auto 22.4 % (20-40); Mean Corpuscular HGB Conc 33.2 g/dl (31.0-35.0); Mean Corpuscular Hemoglobin 31.3 pg (27.0-33.0); Mean Corpuscular Volume 94.2 fL (80.0-98.0); Mean Platelet Volume 8.4 fL (9.4-12.3); Monocytes Absolute Auto 0.8 X10*3/uL (0.1-1.2); Monocytes Percent Auto 11.4 % (2-11); Neutrophils Absolute Auto 4.7 x10*3/uL (2.0-8.3); Platelet Count 296 X10*3/uL (160-400); Red Blood Count 3.13 X10*6/uL (4.20-5.50); Red Cell Distribution Width 12.7 % (11.0-16.0); White Blood Count 7.2 X10*3/uL (4.8-10.8)
[2025-02-20 08:26] LABS: Anion Gap 12 (12-20); Blood Urea Nitrogen 24 mg/dL (9-16); Calcium 8.4 mg/dL (8.4-10.2); Carbon Dioxide 24 mmol/L (22-29); Chloride 100 mmol/L (96-108); Creatinine Clr Calc Pharmacy 28.1; Estimated Glomerular Filt Rate 41; Glucose Random 92 mg/dL (60-115); Potassium 4.4 mmol/L (3.3-5.1); Sodium 132 mmol/L (135-145)
[2025-02-20] MEDS: 0.9 % Sodium Chloride Flush 3 ML SYRINGE IVFLUSH ×3 (09:23→20:01)
[2025-02-20] MEDS: amLODIPine Besylate 5 MG TABLET PO (09:25)
[2025-02-20] MEDS: FLUoxetine HCl 20 MG CAPSULE 40 MG PO (09:25)
[2025-02-20] MEDS: Loratadine 10 MG TABLET PO (09:25)
[2025-02-20] MEDS: Atorvastatin Calcium 80 MG TABLET PO (09:25)
[2025-02-20] MEDS: Docusate Sodium 100 MG CAPSULE PO ×2 (09:26→20:01)
[2025-02-20] MEDS: QUEtiapine Fumarate 25 MG TABLET PO (09:26)
[2025-02-20] MEDS: Clotrimazole 1 % Cream 15 GM TUBE 1 APPL TOPICAL (09:29)
[2025-02-20] MEDS: Fluticasone Propionate Nasal 16 GM SPRAY 1 SPRAY NOSTRIL-B (09:30)
--- NOTE | 2025-02-20 09:41 | PM.PNORT ---
Subjective Subjective Date of Service: 02/20/25 Interval history: POD4 s/p RTKA Patient is resting in bed comfortably No overnight events Pain is well managed Swelling has continued in RLE No additional complaints Physical Exam Vital Signs: Vital Signs: Last Vital Signs Temp 98.0 F 02/20/25 07:12 Pulse 68 02/20/25 08:03 Resp 18 02/20/25 08:03 BP 116/58 L 02/20/25 09:25 Pulse Ox 93 02/20/25 07:12 O2 Del Method Room Air 02/20/25 07:12 BMI result Body Mass Index 24.5 Const: General: cooperative, healthy appearing and no acute distress Resp: Effort & Inspection: normal respiratory effort and able to speak in complete sentences Cardio: Rate: regular rate Peripheral pulses: Peripheral pulses 2+ throughout GI: Palpation (GI): Soft to palpation Skin: Lesions: no lesions Rashes: no rashes Extrem: Other: right knee dressing is c/d/i. Able to dorsi/plantar flex. Calf is swollen, nontender to palpation, slightly erythematous. Sensation intact. Pedal pulse intact. Procedures Date of Service Date of Service: 02/20/25 Progress Note: A&P Assessment and plan (1) Status post total knee replacement, right: Status: Acute Plan Continue pain mgmnt Continue Lovenox for dvt ppx due to CKDIII Venous duplex ultrasound of right lower extremity yesterday negative, consulted Medicine for recommendations, no further anticoagulation or medical therapy indicated, patient should continue to elevate and compress the right lower extremity. Greatly appreciate Medicine input Continue PT for RTKA - WBAT Dispo planning-PT/OT, pain management, rehab placement Time Spent With Patient Time: Total time managing care of this patient today ____ minutes. Quality Stroke Does the patient have a stroke diagnosis?: No VTE Prior VTE?: No VTE Risk Level:: Medical - moderate - high VTE Device Contraindication: N/A - Device Ordered VTE Drug Contraindication: N/A - Med Ordered
[2025-02-20] MEDS: Enoxaparin Sodium 30 MG/0.3 ML SYRINGE SUBCUT (11:41)
[2025-02-20] MEDS: Acetaminophen 325 MG TABLET 650 MG PO ×2 (11:41→18:45)
[2025-02-20] MEDS: Nicotine 7 MG PATCH.TD24 TRANSDERMA (14:57)
[2025-02-20] MEDS: oxyCODONE HCl Immed Release 5 MG TABLET PO (20:04)
[2025-02-21] VITALS (7 sets, daily range): BP systolic 106–140; BP diastolic 55–63; PULSE 63–73; RESP 14–18; TEMP 36–36.9; O2SAT 94–96
[2025-02-21] MEDS: oxyCODONE HCl Immed Release 5 MG TABLET PO ×3 (03:53→19:38)
[2025-02-21] MEDS: Omeprazole 20 MG CAPSULE.DR PO (05:44)
[2025-02-21] MEDS: Atorvastatin Calcium 80 MG TABLET PO (07:25)
[2025-02-21] MEDS: QUEtiapine Fumarate 25 MG TABLET PO (07:25)
[2025-02-21] MEDS: Docusate Sodium 100 MG CAPSULE PO ×2 (07:25→19:38)
[2025-02-21] MEDS: Acetaminophen 325 MG TABLET 650 MG PO ×2 (07:26→19:38)
[2025-02-21] MEDS: Loratadine 10 MG TABLET PO (07:26)
[2025-02-21] MEDS: FLUoxetine HCl 20 MG CAPSULE 40 MG PO (07:26)
[2025-02-21] MEDS: amLODIPine Besylate 5 MG TABLET PO (07:27)
[2025-02-21] MEDS: 0.9 % Sodium Chloride Flush 3 ML SYRINGE IVFLUSH ×3 (07:28→19:38)
[2025-02-21] MEDS: Clotrimazole 1 % Cream 15 GM TUBE 1 APPL TOPICAL ×2 (07:30→21:12)
[2025-02-21] MEDS: Fluticasone Propionate Nasal 16 GM SPRAY 1 SPRAY NOSTRIL-B (07:30)
[2025-02-21] MEDS: Fluticasone/Umeclidinium/Vilanterol 200/62.5/25 BLST.W.DEV 1 PUFF INHALE (07:56)
[2025-02-21 08:08] LABS: MANUAL DIFF FLAG NO
[2025-02-21 08:09] LABS: Basophils Percent Auto 0.5 % (0-2); Eosinophils Absolute Auto 0.1 X10*3/uL (0.0-0.4); Eosinophils Percent Auto 1.1 % (0-4); Hematocrit 26.9 % (37.0-47.0); Hemoglobin 9.2 g/dl (12.0-16.0); Imm Gran Abs Auto 0.04 X10*3/uL (0.00-0.03); Imm Gran Pct Auto 0.7 % (0.0-0.4); Lymphocytes Absolute Auto 1.3 X10*3/uL (1.2-4.9); Lymphocytes Percent Auto 21.8 % (20-40); Mean Corpuscular HGB Conc 34.2 g/dl (31.0-35.0); Mean Corpuscular Hemoglobin 31.6 pg (27.0-33.0); Mean Corpuscular Volume 92.4 fL (80.0-98.0); Mean Platelet Volume 8.3 fL (9.4-12.3); Monocytes Absolute Auto 0.8 X10*3/uL (0.1-1.2); Monocytes Percent Auto 12.8 % (2-11); Neutrophils Absolute Auto 3.9 x10*3/uL (2.0-8.3); Neutrophils Percent Auto 63.1 % (45-73); Platelet Count 293 X10*3/uL (160-400); Red Blood Count 2.91 X10*6/uL (4.20-5.50); Red Cell Distribution Width 12.9 % (11.0-16.0); White Blood Count 6.1 X10*3/uL (4.8-10.8)
[2025-02-21 08:22] LABS: Anion Gap 13 (12-20); Blood Urea Nitrogen 24 mg/dL (9-16); Calcium 8.4 mg/dL (8.4-10.2); Carbon Dioxide 26 mmol/L (22-29); Chloride 101 mmol/L (96-108); Creatinine Clr Calc Pharmacy 28.4; Estimated Glomerular Filt Rate 41; Glucose Random 91 mg/dL (60-115); Potassium 4.8 mmol/L (3.3-5.1); Sodium 135 mmol/L (135-145)
--- NOTE | 2025-02-21 09:06 | PM.PNORT ---
Subjective Subjective Date of Service: 02/21/25 Interval history: POD5 s/p RTKA Patient is resting in bed comfortably Patient states that she is starting to want to go home rather than going to rehab No overnight events Pain is well managed Swelling has improved in RLE No additional complaints Physical Exam Vital Signs: Vital Signs: Last Vital Signs Temp 98.5 F 02/21/25 07:13 Pulse 72 02/21/25 07:56 Resp 18 02/21/25 07:56 BP 124/59 L 02/21/25 07:13 Pulse Ox 95 02/21/25 07:13 O2 Del Method Room Air 02/21/25 07:13 BMI result Body Mass Index 24.5 Const: General: cooperative, healthy appearing and no acute distress Resp: Effort & Inspection: normal respiratory effort and able to speak in complete sentences Cardio: Rate: regular rate Peripheral pulses: Peripheral pulses 2+ throughout GI: Palpation (GI): Soft to palpation Skin: Lesions: no lesions Rashes: no rashes Extrem: Other: right knee dressing is c/d/i. Able to dorsi/plantar flex. Calf is swollen, improved from yesterday, nontender to palpation, erythema has resolved. Sensation intact. Pedal pulse intact. Procedures Date of Service Date of Service: 02/21/25 Progress Note: A&P Assessment and plan (1) Status post total knee replacement, right: Status: Acute Plan Continue pain mgmnt Continue Lovenox for dvt ppx due to CKDIII Venous duplex ultrasound of right lower extremity yesterday negative, consulted Medicine for recommendations, no further anticoagulation or medical therapy indicated, patient should continue to elevate and compress the right lower extremity. Greatly appreciate Medicine input After lengthy discussion about the risks of going home in her current state compared to going to rehab to allow her to heal and gain better mobility prior to going home, the patient states she would like to continue the authorization process and go to short-term rehab upon discharge from the hospital. Continue PT for RTKA - WBAT Dispo planning-PT/OT, pain management, rehab placement Time Spent With Patient Time: Total time managing care of this patient today ____ minutes. Quality Stroke Does the patient have a stroke diagnosis?: No VTE Prior VTE?: No VTE Risk Level:: Medical - moderate - high VTE Device Contraindication: N/A - Device Ordered VTE Drug Contraindication: N/A - Med Ordered
[2025-02-21] MEDS: Enoxaparin Sodium 30 MG/0.3 ML SYRINGE SUBCUT (11:57)
[2025-02-22 03:38] VITALS: BP 127/57; PULSE 61; RESP 16; TEMP 36.4; O2SAT 97
[2025-02-22 05:27] VITALS: BMI 23.1
[2025-02-22 05:39] LABS: MANUAL DIFF FLAG NO
[2025-02-22] MEDS: Omeprazole 20 MG CAPSULE.DR PO (05:43)
[2025-02-22 05:44] LABS: Basophils Absolute Auto 0.1 X10*3/uL (0.0-0.2); Basophils Percent Auto 0.7 % (0-2); Eosinophils Absolute Auto 0.1 X10*3/uL (0.0-0.4); Eosinophils Percent Auto 1.8 % (0-4); Hemoglobin 8.7 g/dl (12.0-16.0); Imm Gran Abs Auto 0.03 X10*3/uL (0.00-0.03); Imm Gran Pct Auto 0.4 % (0.0-0.4); Lymphocytes Absolute Auto 1.4 X10*3/uL (1.2-4.9); Lymphocytes Percent Auto 21.2 % (20-40); Mean Corpuscular HGB Conc 32.2 g/dl (31.0-35.0); Mean Corpuscular Hemoglobin 30.7 pg (27.0-33.0); Mean Corpuscular Volume 95.4 fL (80.0-98.0); Mean Platelet Volume 8.2 fL (9.4-12.3); Monocytes Percent Auto 14.4 % (2-11); Neutrophils Absolute Auto 4.1 x10*3/uL (2.0-8.3); Neutrophils Percent Auto 61.5 % (45-73); Platelet Count 300 X10*3/uL (160-400); Red Blood Count 2.83 X10*6/uL (4.20-5.50); Red Cell Distribution Width 12.6 % (11.0-16.0); White Blood Count 6.7 X10*3/uL (4.8-10.8)
[2025-02-22 05:59] LABS: Anion Gap 12 (12-20); Blood Urea Nitrogen 23 mg/dL (9-16); Calcium 8.5 mg/dL (8.4-10.2); Carbon Dioxide 25 mmol/L (22-29); Chloride 103 mmol/L (96-108); Creatinine Clr Calc Pharmacy 27.3; Estimated Glomerular Filt Rate 39; Glucose Random 89 mg/dL (60-115); Potassium 4.6 mmol/L (3.3-5.1); Sodium 135 mmol/L (135-145)
[2025-02-22] MEDS: oxyCODONE HCl Immed Release 5 MG TABLET PO ×3 (06:23→14:28)
[2025-02-22] MEDS: Acetaminophen 325 MG TABLET 650 MG PO (06:23)
[2025-02-22 07:57] VITALS: PULSE 61; RESP 16; O2SAT 94
[2025-02-22] MEDS: Fluticasone/Umeclidinium/Vilanterol 200/62.5/25 BLST.W.DEV 1 PUFF INHALE (07:57)
[2025-02-22 08:00] VITALS: BP 109/56; PULSE 60; RESP 16; TEMP 36.6; O2SAT 93
--- NOTE | 2025-02-22 08:59 | P.PNOP_ITS ---
Subjective Subjective Date of Service: 02/22/25 Interval history: POD6 s/p RTKA Patient is resting in bed comfortably No overnight events Pain is well managed Swelling has improved in RLE No additional complaints Physical Exam Vital Signs: Vital Signs: Last Vital Signs Temp 97.9 F 02/22/25 08:00 Pulse 60 02/22/25 08:00 Resp 16 02/22/25 08:00 BP 109/56 L 02/22/25 08:00 Pulse Ox 93 02/22/25 08:00 O2 Del Method Room Air 02/22/25 08:00 BMI result Body Mass Index 23.1 Const: General: cooperative, healthy appearing and no acute distress Resp: Effort & Inspection: normal respiratory effort and able to speak in complete sentences Cardio: Rate: regular rate Peripheral pulses: Peripheral pulses 2+ throughout GI: Palpation (GI): Soft to palpation Skin: Lesions: no lesions Rashes: no rashes Extrem: Other: right knee dressing is c/d/i. Able to dorsi/plantar flex. Calf is swollen, improved from yesterday, nontender to palpation, erythema has resolved. Sensation intact. Pedal pulse intact. Procedures Date of Service Date of Service: 02/22/25 Progress Note: A&P Assessment and plan (1) Status post total knee replacement, right: Status: Acute Plan Continue pain mgmnt Continue Lovenox for dvt ppx due to CKDIII Venous duplex ultrasound of right lower extremity yesterday negative, consulted Medicine for recommendations, no further anticoagulation or medical therapy indicated, patient should continue to elevate and compress the right lower extremity. Greatly appreciate Medicine input After lengthy discussion about the risks of going home in her current state co mpared to going to rehab to allow her to heal and gain better mobility prior to going home, the patient states she would like to continue the authorization process and go to short-term rehab upon discharge from the hospital. Continue PT for RTKA - WBAT Dispo planning-PT/OT, pain management, rehab placement Time Spent With Patient Time: Total time managing care of this patient today ____ minutes. Quality Stroke Does the patient have a stroke diagnosis?: No VTE Prior VTE?: No VTE Risk Level:: Medical - moderate - high VTE Device Contraindication: N/A - Device Ordered VTE Drug Contraindication: N/A - Med Ordered
[2025-02-22] MEDS: Loratadine 10 MG TABLET PO (09:44)
[2025-02-22] MEDS: Docusate Sodium 100 MG CAPSULE PO (09:44)
[2025-02-22] MEDS: Atorvastatin Calcium 80 MG TABLET PO (09:44)
[2025-02-22] MEDS: FLUoxetine HCl 20 MG CAPSULE 40 MG PO (09:44)
[2025-02-22] MEDS: amLODIPine Besylate 5 MG TABLET PO (09:44)
[2025-02-22] MEDS: QUEtiapine Fumarate 25 MG TABLET PO (09:44)
[2025-02-22] MEDS: Clotrimazole 1 % Cream 15 GM TUBE 1 APPL TOPICAL (09:45)
[2025-02-22] MEDS: Fluticasone Propionate Nasal 16 GM SPRAY 1 SPRAY NOSTRIL-B (09:45)
[2025-02-22] MEDS: 0.9 % Sodium Chloride Flush 3 ML SYRINGE IVFLUSH (09:46)
[2025-02-22] MEDS: Enoxaparin Sodium 30 MG/0.3 ML SYRINGE SUBCUT (10:26)
[2025-02-22 12:00] VITALS: BP 123/78; PULSE 85; RESP 16; TEMP 36.3; O2SAT 96
--- NOTE | 2025-02-22 14:01 | MHC.CM.PN ---
Addendum entered by Geena Hannon 02/22/25 14:12: PT AND DAUGHTER/HCP, [facility] [phone] AWARE OF DCP/TIME AND WHAT INS HAS AUTHORIZED Original Note: INSURANCE AUTH OBTAINED, FOR LONG-TERM CARE ONLY, PT WILL GET THERAPY 3-4 X PER WEEK WHILE IN SNF BLS TRANSPORT WILL BE BOOKED FOR 1600 HOURS
[2025-02-22 15:51] VITALS: BP 107/58; PULSE 67; RESP 18; TEMP 36.3; O2SAT 96
--- NOTE | 2025-02-23 09:41 | W.PM.OPN ---
Operative Note Operative Note Date of Service: 02/16/25 Narrative: Date of Service: 02/16/25 Pre-op diagnosis: right knee OA Post-op diagnosis: same Procedure: Right TKA Implants: [place] [employer] posterior stabilized cemented 11/24/13ps/32a Surgeon: Arya Cintron MD Anesthesia: MAC and regional Was an Human Resources Recruiter used for this Procedure?: Yes Human Resources Recruiter: Lily Mcgowan Estimated blood loss (mL): 25 Tourniquet time (min): 65 Pathology: other Condition: stable Disposition: PACU Procedure in detail: The patient was brought to the operating room and prepped and draped in standard sterile fashion. A time-out was called to identify proper site proper procedure proper surgeon and IV antibiotics were administered. 1 g of IV tranexamic acid was administered. I began by making a midline incision to the retinaculum and performed a medial parapatellar arthrotomy. The patella was translated laterally and the knee was flexed up.There was end-stage tricompartmental disease with poos bone quality. I performed a small medial peel and resected the infrapatellar fat pad. Duncombe's line was then used to drill my intramedullary femoral guide and my distal femur cut of 10 mm was made in 5 degrees of valgus while protecting the soft tissues. I then measured a # 3 femur and placed my cutting guide and made my anterior posterior and chamfer cuts in 3 deg of ER while protecting the soft tissues at all times. I then made my box but removing the PCL. Once I was satisfied with my cuts I turned my attention to the tibia. I removed the meniscus medially and laterally and , using an external cutting guide, in line with the tibial crest and the third ray, I made my distal tibial cut in 0 deg slope of while protecting the posterior soft tissues at all times. An extension block was used to confirm appropriate amount of bony resection. I then sized a #4 tibia and once I was satisfied that there was complete tibial coverage I placed my trial and with the trial femur in place took the knee through range of motion. I was satisfied with the extension and flexion as well as the balance at 0, 30 and 90 degrees. I then turned my attention to the patella where I removed 1 cm from the undersurface of the patella and then trialed a 32a patellar button. Again the knee was taken through range of motion I was satisfied with the tracking. I then prepared the tibia with a drill and punch. A femoral bone plug was placed and the knee was irrigated copiously. I then cemented the patella, tibia and femur in standard fashion. Axial compression and a clamp were used while the cement dried. Once the cement was hard on the back table all excess cement was removed and I trialed different inserts until I selected a #14ps insert. The final insert was placed and local TXA was administered. The knee was then closed with a running Quill suture, a 3 0 Vicryl and yuridia on the skin. Patient was then placed in sterile dressing and brought to recovery room in stable condition there were no known complications.
== END 2025-02-22 16:10 ==
LOC: HO.SSS 06:48 → HO.S3 12:38
PROVIDERS: Nurse Practitioner Family; Physician Assistant; PCP Internal Medicine; Visit Provider Orthopaedic Surgery
PROC: (CPT 27447; principal; 2025-02-16 09:50)
DX: M17.11 Unilateral primary osteoarthritis, right knee (principal); M25.561 Pain in right knee; M79.89 Other specified soft tissue disorders; R26.2 Difficulty in walking, not elsewhere classified; I12.9 Hypertensive chronic kidney disease with stage 1 through stage 4 chronic kidney disease, or unspecified chronic kidney disease; N18.30 Chronic kidney disease, stage 3 unspecified; E78.00 Pure hypercholesterolemia, unspecified; J44.9 Chronic obstructive pulmonary disease, unspecified; F33.1 Major depressive disorder, recurrent, moderate; F41.9 Anxiety disorder, unspecified; G43.909 Migraine, unspecified, not intractable, without status migrainosus; K21.9 Gastro-esophageal reflux disease without esophagitis; J45.909 Unspecified asthma, uncomplicated; Z79.51 Long term (current) use of inhaled steroids; Z79.899 Other long term (current) drug therapy; Z88.8 Allergy status to other drugs, medicaments and biological substances; Z90.49 Acquired absence of other specified parts of digestive tract; Z98.890 Other specified postprocedural states; Z87.891 Personal history of nicotine dependence
CPT/HCPCS: 27447; 36415; 73560; 80048; 80053; 80061; 82306; 85014; 85018; 85025; 86850; 86900; 86901; 87640; 87641; 88305; 88311; 93005; 93971; 94640; 97110; 97116; 97162; 97530; C1713; C1776; J0131; J0665; J0690; J1171; J1650; J2003; J2704; J2795; J7120

== ENCOUNTER → 2025-02-16 06:47 | Outpatient (BNV) | payer OTHER, SELFPAY | PROVIDERS: PCP Internal Medicine; Visit Provider Nurse Practitioner Family | DX: Z00.00 Encounter for general adult medical examination without abnormal findings (principal) | CPT/HCPCS: 99429 ==

== ENCOUNTER → 2025-02-16 06:47 | Outpatient (BNV) | payer OTHER, SELFPAY | PROVIDERS: PCP Internal Medicine; Visit Provider Orthopaedic Surgery | DX: Z96.651 Presence of right artificial knee joint (principal) | CPT/HCPCS: 27447; 99024 ==

== ENCOUNTER → 2025-02-16 11:54 | Outpatient (BNV) | payer OTHER, SELFPAY | PROVIDERS: PCP Internal Medicine; Visit Provider Radiology Diagnostic Radiology | DX: M17.11 Unilateral primary osteoarthritis, right knee (principal) | CPT/HCPCS: 73560 ==

== ENCOUNTER → 2025-02-19 08:33 | Outpatient (BNV) | payer OTHER, SELFPAY | PROVIDERS: PCP Internal Medicine; Visit Provider Radiology Diagnostic Radiology | DX: R22.41 Localized swelling, mass and lump, right lower limb (principal) | CPT/HCPCS: 93971 ==

== ENCOUNTER 2025-03-04 08:53 | Outpatient (AMB) | payer OTHER, SELFPAY ==
--- NOTE | 2025-03-04 09:05 | A.OFFVIS_ITS ---
Intake Visit Reasons: 2WK PO: R TKA w/NE 02/16/25 Intake Note: Socorro is an 84 year old female who presents post operatively after undergoing a right TKA on 02/16/[address] Cintron. Patient reports she is feeling better, however she does complain of spontaneous pain. Client Executive Required: Yes Client Executive Services: Client Executive Offered & Declined Allergies trazodone Allergy (Intermediate, Verified 03/04/25 09:07) nausea HPI HPI 2WK PO: R TKA w/NE 02/16/25: Details: 84-year-old female returns to the office today status post right total knee arthroplasty on 02/16/[address] Cintron. She is accompanied by her daughter today. She is doing well. Her daughter states she took her out of the rehab because she was not progressing well. She has not had physical therapy since Saturday. No concerns today. [facility] Medical History (Updated 03/02/25 @ 00:02 by Kenji He) Evaluation by medical service required Back pain Arthritis Asthma Wears dentures COPD (chronic obstructive pulmonary disease) HLD (hyperlipidemia) HTN (hypertension) Seasonal allergies Mandible pain Moderate recurrent major depression Anxiety Insomnia Migraines GERD (gastroesophageal reflux disease) Pure hypercholesterolemia Surgical History Hx of colonoscopy H/O rectal polypectomy History of cholecystectomy History of repair of rectocele History of bilateral cataract extraction History of sinus surgery Family History Father Cancer Mother Pancreatic cancer Brother Pancreatic cancer Daughter Breast cancer Family/Other FH: mental illness Substance use disorder Maternal Grandmother Diabetes Social History Household Members: Other Household Members Other:: daughter Housing: House Are you a primary infant childcare provider to a significant other at home: No Do you presently have visiting nurse or other home services: No 75 years or older and lives alone: No Alcohol intake: never Comment: COUNTS CORRECT Patient Tobacco Use Status: Former Tobacco user Tobacco use type: Cigarette Cigarettes Per Day: 4 Years Smoked: Started around age 21, on and off. quit 09/2024 e-Cigarette/Vaping Use: Never Used Second Hand Smoke Exposure: No Advance Directives Date on File: 07/12/09 service: No Current occupational status: disabled Cognitive needs: Yes Hearing needs: No Vision needs: Yes Review of Systems Const All systems reviewed & are unremarkable except as noted in HPI and below Physical Exam Extrem Other: Right knee incision clean dry and intact no erythema. No drainage. Range of motion 0-95 degrees. Calf supple and nontender neurovascularly intact. Assessment & Plan Assessment & Plan (1) Status post total knee replacement, right: Code(s): Z96.651 - Presence of right artificial knee joint Category: Surgical Plan: Margarito removed today Steri-Strips applied. She was given an order for physical therapy and their contact information to make an appointment. An order for her Lovenox was sent to her pharmacy she will continue this for another 4 weeks. She can increase activities as tolerated and I will see us back in 6 weeks, sooner if needed. Orders: Orders PT Evaluation and Treatment Today Z96.651 - Presence of right artificial knee joint Medications: Changed From enoxaparin 30 mg (0.3 mL) subcut Q24H 40 days 12 mL 0RF To enoxaparin 30 mg (0.3 mL) subcut Q24H 28 days 8.4 mL 0RF Coding Level of Care Code Global (19023) Diagnoses Status post total knee replacement, right Z96.651
--- OUTSIDE RECORDS SUMMARY | 2025-03-04 09:26 | XMS_ITS | Clinical Summary ---
Author Organization [facility] Address [address] [place] [address] Phone Care Team Providers Care Mgmt Consultant Name Role Phone Unavailable Primary Care Provider [...] 8.5(A) 8.7 - 10.7 mg/dL eGFR Non-Afr [place] 40 ALT (SGPT) 16 U/L AST (SGOT) 29 U/L Alkaline Phosphatase 96 U/L Vitamin D, 25-OH, Total 38.1 ng/mL Triglycerides 145 Cholesterol, Total 202 HDL 64 mg/dL LDL-Calculated 109 12/08/2024 Historical Provider LAB BLOOD ORDERABLES Malathi l Result from Last 3 Months Insurance [place]
== END 2025-03-04 09:46 | disposition home or self-care (01) ==
LOC: HO.HOS 08:53
PROVIDERS: PCP Internal Medicine; Visit Provider Physician Assistant
DX: Z96.651 Presence of right artificial knee joint (principal)
CPT/HCPCS: 99024

== ENCOUNTER → 2025-03-04 08:53 | Outpatient (BNVA) | payer OTHER, SELFPAY | PROVIDERS: PCP Internal Medicine; Visit Provider Physician Assistant | DX: Z96.651 Presence of right artificial knee joint (principal); Z98.890 Other specified postprocedural states | CPT/HCPCS: 99212 ==

== ENCOUNTER 2025-03-11 09:10 | Outpatient (AMB) | payer OTHER, SELFPAY ==
--- NOTE | 2025-03-11 09:11 | MHC.OFFVIS ---
Intake Visit Reasons: 6WK PO: R TKA w/NE 02/16/25 Intake Note: Socorro is an 84 year old female who presents today for a post operative appointment s/p Right TKA 02/16/25. Patient reports that she has been doing well, ambulates with a cane. She reports that she has been having chronic pain in the lower leg Allergies trazodone Allergy (Intermediate, Verified 03/04/25 09:07) nausea HPI HPI 6WK PO: R TKA w/NE 02/16/25: Details: Socorro is an 84 year old female who presents today for a post operative follow up s/p Right TKA 02/16/25. Patient reports that she has been doing well, ambulates with a cane. She reports that she has been having chronic pain in the lower leg PFSH Medical History Evaluation by medical service required Back pain Arthritis Asthma Wears dentures COPD (chronic obstructive pulmonary disease) HLD (hyperlipidemia) HTN (hypertension) Seasonal allergies Mandible pain Moderate recurrent major depression Anxiety Insomnia Migraines GERD (gastroesophageal reflux disease) Pure hypercholesterolemia Surgical History Hx of colonoscopy H/O rectal polypectomy History of cholecystectomy History of repair of rectocele History of bilateral cataract extraction History of sinus surgery Family History Father Cancer Mother Pancreatic cancer Brother Pancreatic cancer Daughter Breast cancer Family/Other FH: mental illness Substance use disorder Maternal Grandmother Diabetes Social History Household Members: Other Household Members Other:: daughter Housing: House Are you a primary healthcare project manager to a significant other at home: No Do you presently have visiting nurse or other home services: No 75 years or older and lives alone: No Alcohol intake: never Comment: COUNTS CORRECT Patient Tobacco Use Status: Former Tobacco user Tobacco use type: Cigarette Cigarettes Per Day: 4 Years Smoked: Started around age 21, on and off. quit 09/2024 e-Cigarette/Vaping Use: Never Used Second Hand Smoke Exposure: No Advance Directives Date on File: 07/12/09 service: No Current occupational status: disabled Cognitive needs: Yes Hearing needs: No Vision needs: Yes Physical Exam Extrem Other: Incision clean dry and intact. 0 to 100 degrees of motion. Assessment & Plan Assessment & Plan (1) Status post total knee replacement, right: Code(s): Z96.651 - Presence of right artificial knee joint Category: Surgical Plan: 84-year-old woman now just about a month status post knee replacement. Overall she is doing very well. Continue therapy and follow up as scheduled in 3 weeks. Coding Level of Care Code Global (52354) Diagnoses Status post total knee replacement, right Z96.651
--- OUTSIDE RECORDS SUMMARY | 2025-03-11 09:46 | XMS_ITS | Clinical Summary ---
Author Organization [facility] Address [address] [place] [address] Phone Care Team Providers Care Asset Management Coordinator Name Role Phone Unavailable Primary Care Provider [...] patient's age to complete this topic Insurance Kamla Roderfield
== END 2025-03-11 12:49 | disposition home or self-care (01) ==
LOC: HO.HOS 09:10
PROVIDERS: PCP Internal Medicine; Visit Provider Orthopaedic Surgery
DX: Z96.651 Presence of right artificial knee joint (principal)
CPT/HCPCS: 99024

== ENCOUNTER → 2025-03-11 09:10 | Outpatient (BNVA) | payer OTHER, SELFPAY | PROVIDERS: PCP Internal Medicine; Visit Provider Orthopaedic Surgery | DX: M79.661 Pain in right lower leg (principal); Z96.651 Presence of right artificial knee joint; Z98.890 Other specified postprocedural states; G89.29 Other chronic pain | CPT/HCPCS: 99212 ==

== ENCOUNTER 2025-03-19 08:48 | Outpatient (AMB) | payer OTHER, SELFPAY ==
--- NOTE | 2025-03-19 08:56 | A.OFFPC_ITS ---
Vital Signs 3 03/19/25 08:58 Height 5 ft 3 in Weight 129 lb 2 oz BMI 22.9 BP 110/62 Blood Pressure Location Lt brachial Position Sitting Pulse 69 Pulse Source Pulse Oximeter Temp 97.1 F Temp Source Temporal Artery Scan Pulse Oximetry (%) 97 Oxygen Delivery Method Room Air Intake Visit Reasons: Rehab discharge 03/01 Intake Note: Patient is here for hospital discharge follow up. Patient was discharged from Rehab ([facility]) on 03/01/25. Career And Guidance Counselor Required: Yes Career And Guidance Counselor Language: Pullman Car Clerk Name: Eugene (Daughter) Information Interpreted: non-clinical & clinical (Pt decline carcass washer service prefer daughter to translate for her) Oil Well Perforator Operator: Present Accompanied by: Daughter Allergies trazodone Allergy (Intermediate, Verified 03/19/25 08:57) nausea Tobacco use date assessed: 03/19/25 Fall risk assessment: No Falls in past year Last assessed Fall Risk: 03/19/25 Dental Screening Dental Screen Date: 10/15/24 HPI HPI Comments 2 History of Present Illness0 Details 84 y/o Female patient who presents to [facility] today for HDF. She was admitted at [facility] on 02/16 - 02/22 for an elective Procedure RT TKA (done 02/16/25). She was subsequently admitted at [facility] on 02/22 - 03/01 for PT/OT. Today reports feeling better and continues to f/u with Orthopedics. She did have Post-op visits with Ortho - 03/11/2025. [facility] Medical History Evaluation by medical service required Back pain Arthritis Asthma Wears dentures COPD (chronic obstructive pulmonary disease) HLD (hyperlipidemia) HTN (hypertension) Seasonal allergies Mandible pain Moderate recurrent major depression Anxiety Insomnia Migraines GERD (gastroesophageal reflux disease) Pure hypercholesterolemia Surgical History (Updated 03/19/25 @ 09:08 by MARLENE Sarmiento) History of total right knee replacement Hx of colonoscopy H/O rectal polypectomy History of cholecystectomy History of repair of rectocele History of bilateral cataract extraction History of sinus surgery Family History Father Cancer Mother Pancreatic cancer Brother Pancreatic cancer Daughter Breast cancer Family/Other FH: mental illness Substance use disorder Maternal Grandmother Diabetes Social History Household Members: Other Household Members Other:: daughter Housing: House Are you a primary manager care to a significant other at home: No Do you presently have visiting nurse or other home services: No 75 years or older and lives alone: No Alcohol intake: never Comment: COUNTS CORRECT Patient Tobacco Use Status: Former Tobacco user Tobacco use type: Cigarette Cigarettes Per Day: 4 Years Smoked: Started around age 21, on and off. quit 09/2024 Packs per year/per ci.00 e-Cigarette/Vaping Use: Never Used Second Hand Smoke Exposure: Yes Advance Directives Date on File: 07/12/09 service: No Current occupational status: disabled Cognitive needs: Yes Hearing needs: No Vision needs: Yes Questionnaire PHQ-9 Over the last 2 weeks, how often have you been bothered by any of the following problems? 1. Little interest or pleasure in doing things: not at all 2. Feeling down, depressed, or hopeless: not at all 3. Trouble falling or staying asleep, or sleeping too much: not at all 4. Feeling tired or having little energy: not at all 5. Poor appetite or overeating: not at all 6. Feeling bad about yourself - or that you are a failure or have let yourself or your family down: not at all 7. Trouble concentrating on things, such as reading the newspaper or watching television: not at all 8. Moving or speaking so slowly that other people could have noticed. Or the opposite - being so fidgety or restless that you have been moving around a lot more than usual: not at all 9. Thoughts that you would be better off or of hurting yourself in some way: not at all Total score: 0 Depression Screening Interpretation: Negative Depression Screening Done: Yes Source: Developed by Drs. Nimesh Schumacher, Leisa Austin, Marshall Blum and colleagues, with an educational rhianna from [employer]. Thrive Questionnaire Date Thrive assessed: 02/17/25 JAN-7 AMB Questionnaire JAN-7 Date JAN - 7 assessed: 10/15/24 Source: Developed by Drs. Nimesh Schumacher, Marshall Gutierrezke and colleagues, with an educational rhianna from [employer]. Review of Systems Const All systems reviewed & are unremarkable except as noted in HPI and below Physical exam (Primary Care) Vital Signs: Last Vital Signs Temp 97.1 F 03/19/25 08:58 Pulse 69 03/19/25 08:58 BP 110/62 03/19/25 08:58 Pulse Ox 97 03/19/25 08:58 Oxygen Delivery Method Room Air 03/19/25 08:58 BMI result Body Mass Index 22.9 Tobacco/Smoking Status: Tobacco use Status Tobacco use date assessed 03/19/25 03/19/25 09:09 Patient Tobacco Use Status Former Tobacco user 03/19/25 09:09 Tobacco use type Cigarette 03/19/25 09:09 e-Cigarette/Vaping Use Never Used 03/19/25 09:09 PHQ-9: PHQ-9 Score PHQ-9: Total score 0 03/19/25 09:09 Depression Screening Interpretation: Negative Thrive Assessment: Date of Thrive Assessment Date Thrive assessed 02/17/25 03/19/25 09:09 Const General: no acute distress Orientation/consciousness: patient oriented x3 Neuro General: patient oriented x3 Extrem Right lower extremity: knee (Large surgical incision - healing well, mild TTP warm to touch) Details: tenderness Location: of the patella, swelling Location: of the patella, normal ROM and warmth Location: medially; no crepitus Knee images: 2 1. Surgical incision, warm and mild swelling TTP. Psych Speech and movement: Normal speech and movement present Coding Level of Care Code Est Pt Level 4 (72092) Diagnoses Status post total knee replacement, right Z96.651 Time Spent (min) 20 Assessment & Plan Assessment & Plan (1) Status post total knee replacement, right: Code(s): Z96.651 - Presence of right artificial knee joint Category: Surgical Plan: Stable. Managed by Orthopedics.
[2025-03-19 08:58] VITALS: BP 110/62; PULSE 69; TEMP 36.2; O2SAT 97; BMI 22.9
--- OUTSIDE RECORDS SUMMARY | 2025-03-19 09:04 | XMS_ITS | Clinical Summary ---
Author Organization [facility] Address [address] [place] [address] Phone Care Team Providers Care Engineering Leader Name Role Phone Unavailable Primary Care Provider [...] age to complete this topic Insurance Kamla [place]
== END 2025-03-19 10:31 | disposition home or self-care (01) ==
LOC: HO.HMCH 08:48
PROVIDERS: PCP Internal Medicine; Visit Provider Nurse Practitioner Family
DX: Z96.651 Presence of right artificial knee joint (principal)

== ENCOUNTER → 2025-03-19 08:48 | Outpatient (BNVA) | payer OTHER, SELFPAY | PROVIDERS: PCP Internal Medicine; Visit Provider Nurse Practitioner Family | DX: Z96.651 Presence of right artificial knee joint (principal) | CPT/HCPCS: 96127; 99212 ==

== ENCOUNTER 2025-03-30 08:35 | Outpatient (REF) | payer OTHER, SELFPAY ==
--- NOTE | ~2025-03-30 | XR_ITS ---
CLINICAL HISTORY: M17.11 - Unilateral primary osteoarthritis, right knee 3 view right knee Comparison: CR/SR - XR KNEE RT 2V - 02/16/25 12:03 EDT Findings: Bones intact. No dislocations. Right total knee arthroplasty with intact hardware and alignment. No joint effusion. IMPRESSION: Right total knee arthroplasty with intact hardware and alignment. This document has been electronically signed by: Benoit Stokes MD on 03/30/2025 20:06:20
== END 2025-03-30 08:36 | disposition home or self-care (01) ==
LOC: HO.HOSX 08:35
PROVIDERS: PCP Internal Medicine; Visit Provider Physician Assistant
DX: Z96.651 Presence of right artificial knee joint (principal); M17.11 Unilateral primary osteoarthritis, right knee
CPT/HCPCS: 73562; 99212

== ENCOUNTER 2025-03-30 08:35 | Outpatient (AMB) | payer OTHER, SELFPAY ==
--- OUTSIDE RECORDS SUMMARY | 2025-03-30 08:47 | XMS_ITS | Clinical Summary ---
Author Organization [employer] Address [address] [place] [address] Care Team Providers Care Jukebox Routeman Name Role Phone Unavailable Primary Care Provider [...] COVID-19 Vaccine ( season) 2024 06/20/2021, 05/11/2021 Dental Oral Exam 11/26/2024 05/28/2024, 03/31/2021 Influenza Vaccine (#1) 2025 , 10/04/2022, 07/18/2020, Additional history exists Tobacco Screening 05/28/2025 05/28/2024 Hepatitis B Vaccines [...] Health Maintenance Insurance [facility] [employer] - DQ [facility] SNP
--- OUTSIDE RECORDS SUMMARY | 2025-03-30 08:47 | XMS_ITS | Clinical Summary ---
Author Organization [facility] Address [address] [place] [address] Phone Care Team Providers Care Railroad Track Mechanic Name Role Phone Unavailable Primary Care Provider [...] of 2 - PCV) 1959 Influenza Vaccine (#1) 2025 Hepatitis B Vaccine Aged Out No longe r eligible based on patient's age to complete this topic Insurance [place]
--- NOTE | 2025-03-30 09:04 | A.OFFVIS_ITS ---
Vital Signs 03/30/25 09:14 Height 5 ft 3 in Weight 129 lb BMI 22.8 Intake Visit Reasons: 6WK PO: R TKA w/NE 02/16/25 Intake Note: Socorro is an 84 year old female who presents today for a post operative visit after undergoing a right TKA on 02/16/[address] Cintron. Patient reports she is doing well, she has mild pain. States noticing some swelling with prolong sitting. Director Quality Assurance Required: Yes Director Quality Assurance Services: Director Quality Assurance Present Director Quality Assurance Name: AidaAMAN LM Allergies trazodone Allergy (Intermediate, Verified 03/30/25 09:07) nausea Medication List - Last Reconciled 03/30/25 by Lily Mcgowan PA-C acetaminophen 650 mg (2 x 325 mg) PO Q6H PRN 30 days acetaminophen 500 mg PO Q6H PRN 30 days Held on 02/18/25. Instructions: Resume on 03/18/25. albuterol sulfate 90 mcg/actuation 2 puffs inhalation Q4-6H PRN alendronate 70 mg PO SA amlodipine 5 mg PO DAILY 90 days atorvastatin 80 mg PO DAILY 90 days calcium carbonate-vitamin D3 600 mg-10 mcg (400 unit) 1 tab PO DAILY cetirizine 10 mg PO DAILY 90 days cholecalciferol (vitamin D3) 25 mcg PO DAILY 90 days docusate sodium 100 mg PO BID 30 days enoxaparin 30 mg (0.3 mL) subcut Q24H 28 days fluoxetine 40 mg PO QAM 90 days fluticasone propionate 50 mcg/actuation (Flonase Allergy Relief) 1 spray intranasal DAILY 30 days yylpifhkthe-kdhiohjgj-hqcayhdk 200-62.5-25 mcg (Trelegy Ellipta) 1 ea PO DAILY 60 days meclizine 25 mg PO DAILY PRN 30 days omeprazole 20 mg PO DAILY 90 days quetiapine 25 mg PO DAILY sumatriptan succinate 50 mg PO DAILY PRN 90 days walker Folding Front wheeled walker duration 99 days zolpidem 10 mg PO BEDTIME PRN 30 days HPI HPI 6WK PO: R TKA w/NE 02/16/25: Details: 84 yo female returns to the office today 6 wk s/p RT TKA 02/16/25 with NE. She states she has completed her PT and continues to work on her HEP. She has intermittent discomfort with occassionaly swelling. [facility] Medical History Evaluation by medical service required Back pain Arthritis Asthma Wears dentures COPD (chronic obstructive pulmonary disease) HLD (hyperlipidemia) HTN (hypertension) Seasonal allergies Mandible pain Moderate recurrent major depression Anxiety Insomnia Migraines GERD (gastroesophageal reflux disease) Pure hypercholesterolemia Surgical History History of total right knee replacement Hx of colonoscopy H/O rectal polypectomy History of cholecystectomy History of repair of rectocele History of bilateral cataract extraction History of sinus surgery Family History Father Cancer Mother Pancreatic cancer Brother Pancreatic cancer Daughter Breast cancer Family/Other FH: mental illness Substance use disorder Maternal Grandmother Diabetes Social History Household Members: Other Household Members Other:: daughter Housing: House Are you a primary care management coordinator to a significant other at home: No Do you presently have visiting nurse or other home services: No 75 years or older and lives alone: No Alcohol intake: never Comment: COUNTS CORRECT Patient Tobacco Use Status: Former Tobacco user Tobacco use type: Cigarette Cigarettes Per Day: 4 Years Smoked: Started around age 21, on and off. quit 09/2024 e-Cigarette/Vaping Use: Never Used Second Hand Smoke Exposure: Yes Advance Directives Date on File: 07/12/09 service: No Current occupational status: disabled Cognitive needs: Yes Hearing needs: No Vision needs: Yes Review of Systems Const All systems reviewed & are unremarkable except as noted in HPI and below Physical Exam Vital Signs: BMI result Body Mass Index 22.8 Const General: cooperative and no acute distress Orientation/consciousness: patient oriented x3 Resp Effort & Inspection: normal respiratory effort and able to speak in complete sentences Cardio Peripheral pulses: Peripheral pulses 2+ throughout Neuro General: patient oriented x3 Extrem Other: Incision well healed. ROM 0 to 100 degrees of motion. Good quad function. Calf supple non tender. NVI. Results Reviewed Results Reviewed: Xrays were obtained in the office today and personally reviewed by me of the right knee show intact prosthesis without signs of loosening Assessment & Plan Assessment & Plan (1) Status post total knee replacement, right: Code(s): Z96.651 - Presence of right artificial knee joint Category: Surgical Plan: Patient will continue with HEP to maintain her ROM and strength. I reassured her intermittent pain and swelling can occured 12 months post op. She needs to maintain exercises and I did send her a topical cream to help with occ pain adn swelling. She will return in 6 weeks for her 3mth post op with NE, sooner if needed. Orders: Orders XR knee RT 3V Today M17.11 - Unilateral primary osteoarthritis, right knee Medications: New diclofenac sodium 1% apply to single knee, ankle, foot; for foot includes sole/toes/top of foot 4 grams topical QID 100 grams 0RF 30 days Coding Level of Care Code Global (82898) Diagnoses Status post total knee replacement, right Z96.651
[2025-03-30 09:14] VITALS: BMI 22.8
== END 2025-03-30 09:41 | disposition home or self-care (01) ==
LOC: HO.HOS 08:36
PROVIDERS: PCP Internal Medicine; Visit Provider Physician Assistant
DX: Z96.651 Presence of right artificial knee joint (principal)
CPT/HCPCS: 99024

== ENCOUNTER → 2025-03-30 08:49 | Outpatient (BNV) | payer OTHER, SELFPAY | PROVIDERS: PCP Internal Medicine; Visit Provider Student in an Organized Health Care Education/Training Program | DX: M17.11 Unilateral primary osteoarthritis, right knee (principal) | CPT/HCPCS: 73562 ==

== ENCOUNTER 2025-04-02 08:12 | Outpatient (REF) | payer OTHER, SELFPAY ==
--- NOTE | ~2025-04-02 | MM_ITS ---
EXAMINATION: DXA BONE DENSITY AXIAL HISTORY: Z78.0 - Asymptomatic menopausal state TECHNIQUE: Twonq Dual energy absorptiometry (DEXA) of the lumbar spine, total left hip, and femoral neck was performed. COMPARISON: Comparison is made with the prior examination dated 03/29/2023. FINDINGS: The bone mineral density of the lumbar spine is 0.993 g/cm2, corresponding to a T-score of -1.6, and a Z-score of 0.5. This is indicative of osteopenia. This represents a BMD change of -0.2% compared to the prior exam. This is not statistically significant. The bone mineral density of the left total hip is 0.762 g/cm2, corresponding to a T-score of -1.9, and a Z-score of 0.3. This is indicative of osteopenia. This represents a BMD change of 0.9% compared to the prior exam. This is not statistically significant. The bone mineral density of the left femoral neck is 0.638 g/cm2, corresponding to a T-score of -2.9, and a Z-score of -0.5. This is indicative of osteoporosis. This represents a BMD change of -0.9% compared to the prior exam. FRACTURE RISK: The FRAX index suggests a ten year probability of major osteoporotic fracture of 14.8%, and of hip fracture 5.8%. MM/XR DEXA axial skeleton IMPRESSION: Based on bone mineral density, and according to World Health Organization (WHO) criteria, the diagnosis is consistent with osteoporosis. Statistically, 68% of repeat scans fall within 1 SD (+/- 0.010 g/cm2 for AP spine L1-L4) and 1 SD (+/- 0.012 g/cm2 for femur total) FRAX is a trademark of the [employer]'s [place] for Metabolic Bone Disease, a World Health Organization (WHO) Collaborating Center. Electronically signed by: Nimesh Connor MD 04/02/2025 09:28 AM EDT
--- OUTSIDE RECORDS SUMMARY | 2025-04-02 08:15 | XMS_ITS | Clinical Summary ---
Author Organization [facility] Address [address] [place] [address] Phone Care Team Providers Care Tile Setter Apprentice Name Role Phone Unavailable Primary Care Provider [...] patient's age to complete this topic Insurance [place]
--- OUTSIDE RECORDS SUMMARY | 2025-04-02 08:15 | XMS_ITS | Clinical Summary ---
Author Organization [employer] Address [address] [place] [address] Care Team Providers Care Sludge Mill Operator Name Role Phone Unavailable Primary Care [...] Health Maintenance Insurance [employer]TE DENT[employer] - DQ [facility] SNP
== END 2025-04-02 08:13 | disposition home or self-care (01) ==
LOC: HO.MAMMO 08:12
PROVIDERS: PCP Internal Medicine; Visit Provider Internal Medicine
DX: Z13.820 Encounter for screening for osteoporosis (principal); Z78.0 Asymptomatic menopausal state
CPT/HCPCS: 77080

== ENCOUNTER → 2025-04-02 09:15 | Outpatient (BNV) | payer OTHER, SELFPAY | PROVIDERS: PCP Internal Medicine; Visit Provider Radiology Diagnostic Radiology | DX: E28.39 Other primary ovarian failure (principal) | CPT/HCPCS: 77080 ==

== ENCOUNTER 2025-05-06 07:56 | Outpatient (AMB) | payer OTHER, SELFPAY ==
--- OUTSIDE RECORDS SUMMARY | 2025-05-06 07:59 | XMS_ITS | Clinical Summary ---
Author Organization [facility] Address [address] [place] [address] Phone Care Team Providers Care Home Energy Rater Name Role Phone Unavailable Primary Care Provider [...] age to complete this topic Insurance Kamla [place]
--- OUTSIDE RECORDS SUMMARY | 2025-05-06 07:59 | XMS_ITS | Clinical Summary ---
Author Organization [employer] Address [address] [place] [address] Care Team Providers Care Junior Accountant Bookkeeper Name Role Phone Unavailable Primary Care Provider [...] Health Maintenance Insurance [facility]TE DENTAL - DQ [facility] SNP
[2025-05-06 08:09] VITALS: BP 138/70; PULSE 81; O2SAT 97; BMI 22.7
--- NOTE | 2025-05-06 08:09 | MHC.PC.OV ---
Vital Signs 05/06/25 08:09 Height 5 ft 3 in Weight 128 lb BMI 22.7 BP 138/70 Blood Pressure Location Lt brachial Position Sitting Pulse 81 Pulse Source Pulse Oximeter Pulse Oximetry (%) 97 Oxygen Delivery Method Room Air Intake Visit Reasons: bp Master Of Ceremonies Required: No Accompanied by: Self / Same As Patient Allergies trazodone Allergy (Intermediate, Verified 05/06/25 08:20) nausea Medication List - Last Reconciled 05/06/25 by Socorro Short MD acetaminophen 650 mg (2 x 325 mg) PO Q6H PRN 30 days acetaminophen 500 mg PO Q6H PRN 30 days Held on 02/18/25. Instructions: Resume on 03/18/25. albuterol sulfate 90 mcg/actuation 2 puffs inhalation Q4-6H PRN alendronate 70 mg PO QWEEK 90 days amlodipine 5 mg PO DAILY 90 days atorvastatin 80 mg PO DAILY 90 days calcium carbonate-vitamin D3 600 mg-10 mcg (400 unit) 1 tab PO DAILY cetirizine 10 mg PO DAILY 90 days cholecalciferol (vitamin D3) 25 mcg PO DAILY 90 days diclofenac sodium 1% 4 grams topical QID 30 days docusate sodium 100 mg PO BID 30 days enoxaparin 30 mg (0.3 mL) subcut Q24H 28 days fluoxetine 40 mg PO QAM 90 days fluticasone propionate 50 mcg/actuation (Flonase Allergy Relief) 1 spray intranasal DAILY 30 days udtstykzvzq-zvzimwcgn-xknzzula 200-62.5-25 mcg (Trelegy Ellipta) 1 ea PO DAILY 60 days meclizine 25 mg PO DAILY PRN 30 days omeprazole 20 mg PO DAILY 90 days quetiapine 25 mg PO DAILY sumatriptan succinate 50 mg PO DAILY PRN 90 days walker Folding Front wheeled walker duration 99 days zolpidem 10 mg PO BEDTIME PRN 30 days Tobacco use date assessed: 03/19/25 Fall risk assessment: No Falls in past year Last assessed Fall Risk: 05/06/25 Dental Screening Dental Screen Date: 10/15/24 HPI HPI Comments History of Present Illness Details The patient is an 84-year-old female presenting with a follow-up for her chronic conditions, including COPD, hypertension, and osteoporosis management. She has a history of Chronic Obstructive Pulmonary Disease (COPD) and uses Trelegy for management. Her blood pressure is currently well-controlled at 138/70 mmHg with the use of amlodipine. The patient was diagnosed with osteoporosis and is on Fosamax 70 mg weekly. She had a recent bone density scan and has a follow-up appointment with endocrinology scheduled. She experiences depression, for which she takes fluoxetine 40 mg daily. Additionally, she reports insomnia and is prescribed zolpidem 10 mg for sleep. The patient has a history of macrocytic anemia, with a hemoglobin level of 8.7 g/dL and an MCV of 95.4 fL noted in February. There is a concern for possible vitamin B12 deficiency, and she is advised to have laboratory tests done. She is also diagnosed with stage 3 chronic kidney disease, with a GFR between 40 to 45 mL/min/1.73 m?. Her renal function is stable, but she is advised to avoid NSAIDs like ibuprofen to prevent further kidney damage. 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 [facility] Medical History (Updated 05/06/25 @ 08:34 by Socorro Short MD) Evaluation by medical service required Back pain Arthritis Asthma Wears dentures COPD (chronic obstructive pulmonary disease) HLD (hyperlipidemia) HTN (hypertension) Seasonal allergies Mandible pain Moderate recurrent major depression Anxiety Insomnia Migraines GERD (gastroesophageal reflux disease) Pure hypercholesterolemia Surgical History History of total right knee replacement Hx of colonoscopy H/O rectal polypectomy History of cholecystectomy History of repair of rectocele History of bilateral cataract extraction History of sinus surgery Family History Father Cancer Mother Pancreatic cancer Brother Pancreatic cancer Daughter Breast cancer Family/Other FH: mental illness Substance use disorder Maternal Grandmother Diabetes Social History Household Members: Other Household Members Other:: daughter Housing: House Are you a primary customer care consultant to a significant other at home: No Do you presently have visiting nurse or other home services: No 75 years or older and lives alone: No Alcohol intake: never Comment: COUNTS CORRECT Patient Tobacco Use Status: Former Tobacco user Tobacco use type: Cigarette Cigarettes Per Day: 4 Years Smoked: Started around age 21, on and off. quit 09/2024 e-Cigarette/Vaping Use: Never Used Second Hand Smoke Exposure: Yes Advance Directives Date on File: 07/12/09 service: No Current occupational status: disabled Cognitive needs: Yes Hearing needs: No Vision needs: Yes Questionnaire PHQ-9 Over the last 2 weeks, how often have you been bothered by any of the following problems? 1. Little interest or pleasure in doing things: not at all 2. Feeling down, depressed, or hopeless: not at all 3. Trouble falling or staying asleep, or sleeping too much: not at all 4. Feeling tired or having little energy: not at all 5. Poor appetite or overeating: not at all 6. Feeling bad about yourself - or that you are a failure or have let yourself or your family down: not at all 7. Trouble concentrating on things, such as reading the newspaper or watching television: not at all 8. Moving or speaking so slowly that other people could have noticed. Or the opposite - being so fidgety or restless that you have been moving around a lot more than usual: not at all 9. Thoughts that you would be better off or of hurting yourself in some way: not at all Total score: 0 Depression Screening Interpretation: Negative Depression Screening Done: Yes 23376 - PHQ-9 Billing: Yes Source: Developed by Drs. Nimesh Schumacher, Leisa Austin, Marshall Blum and colleagues, with an educational rhianna from [employer]. Thrive Questionnaire Date Thrive assessed: 05/06/25 I am a: Patient What is your living situation today?: I have a steady place to live Within the past 12 months, did the food you bought not last and you didn't have the money to get more?: Never true Within the past 12 months, did you worry whether your food would run out before you got money to buy more?: Never true Do you have trouble paying for medicines?: No Do you have trouble getting transportation to medical appointments?: No Do you have trouble paying your heating and electricity bill?: No Do you have trouble taking care of your child, family member or friend?: No Do you have trouble with day-to-day activities such as bathing, preparing meals, shopping, managing finances, etc.?: No Are you currently unemployed and looking for a job?: Yes Are you interested in more education?: No Please select the resources that you would like help with: None Currently or been in a relationship where the following occur: No concerns reported THRIVE Score: 0 AUDIT C Alcohol Use Questionnaire (AUDIT-C) 1. How often do you have a drink containing alcohol?: Never 3. How often do you have six or more drinks on one occasion?: Never Total Score: 0 Score Reviewed/Action Taken: No JAN-7 AMB Questionnaire JAN-7 Date JAN - 7 assessed: 10/15/24 Feeling nervous, anxious, or on edge: 0 = Not at all Not being able to stop or control worryin = Not at all Worrying too much about different things: 0 = Not at all Trouble relaxin = Not at all Being so restless that it is hard to sit still: 0 = Not at all Becoming easily annoyed or irritable: 0 = Not at all Feeling afraid as if something awful might happen: 0 = Not at all Total JAN-7 score (0-4 normal; 5-9 mild; 10-14 moderate; 15-21 severe): 0 Source: Developed by Drs. Nimesh Schumacher, Leisa Austin, Marshall Blum and colleagues, with an educational rhianna from [employer]. JAN-7 Assessment Billing JAN-7 Assessment Tool: JAN-7 Assessment 53984 Review of Systems Const All systems reviewed & are unremarkable except as noted in HPI and below Card Denies chest pain at rest, Denies chest pain with activity, Denies edema, Denies irregular heart rhythm, Denies claudication, Denies dyspnea, Denies dyspnea on exertion, Denies orthopnea, Denies paroxysmal nocturnal dyspnea and Denies slow heart rate Resp Denies cough, Denies dyspnea and Denies dyspnea on exertion GI Denies abdominal pain, Denies change in bowel habits, Denies excessive flatus, Denies nausea and Denies vomiting Physical exam (Primary Care) Vital Signs: Last Vital Signs Pulse 81 05/06/25 08:09 BP 138/70 05/06/25 08:09 Pulse Ox 97 05/06/25 08:09 Oxygen Delivery Method Room Air 05/06/25 08:09 BMI result Body Mass Index 22.7 Tobacco/Smoking Status: Tobacco use Status Tobacco use date assessed 03/19/25 05/06/25 08:14 Patient Tobacco Use Status Former Tobacco user 05/06/25 08:14 Tobacco use type Cigarette 05/06/25 08:14 e-Cigarette/Vaping Use Never Used 05/06/25 08:14 PHQ-9: PHQ-9 Score PHQ-9: Total score 0 05/06/25 08:14 Depression Screening Interpretation: Negative Thrive Assessment: Date of Thrive Assessment Date Thrive assessed 05/06/25 05/06/25 08:14 Currently or been in a relationship where the following occur: No concerns reported Resp Effort & Inspection: normal respiratory effort Auscultation: clear to auscultation bilaterally Cardio Jugular venous distension: no JVD Rate: regular rate Rhythm: regular rhythm Heart sounds: S1 normal heart sound present and S2 normal heart sound present Extrem General: Yes full ROM Coding Level of Care Code Est Pt Level 4 (75497) Complex EM visit Add On G2211 Diagnoses Essential hypertension I10 Hypertension type: essential hypertension Pure hypercholesterolemia E78.00 Osteoporosis M81.0 Moderate recurrent major depression F33.1 Gastroesophageal reflux disease, unspecified whether esophagitis present K21.9 Esophagitis presence: esophagitis presence not specified Stage 3b chronic kidney disease N18.32 Chronic kidney disease stage 3 subtype: stage 3b (GFR 30-44) 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 Macrocytic anemia D53.9 Insomnia G47.00 Additional Codes PHQ-9 - 60052 - PHQ-9 Billing: Yes ([id number]) JAN-7 Assessment Billing - JAN-7 Assessment Tool: JAN-7 Assessment 12025 ([id number]) Time Spent (min) 25 Assessment & Plan Assessment & Plan (1) HTN (hypertension): Code(s): I10 - Essential (primary) hypertension Category: Medical Qualifiers: Hypertension type: essential hypertension Qualified Code(s): I10 - Essential (primary) hypertension (2) Pure hypercholesterolemia: Code(s): E78.00 - Pure hypercholesterolemia, unspecified Category: Medical (3) Osteoporosis: Code(s): M81.0 - Age-related osteoporosis without current pathological fracture Category: Medical (4) Moderate recurrent major depression: Code(s): F33.1 - Major depressive disorder, recurrent, moderate Category: Medical (5) GERD (gastroesophageal reflux disease): Code(s): K21.9 - Gastro-esophageal reflux disease without esophagitis Category: Medical Qualifiers: Esophagitis presence: esophagitis presence not specified Qualified Code(s): K21.9 - Gastro-esophageal reflux disease without esophagitis (6) CKD (chronic kidney disease) stage 3, GFR 30-59 ml/min: Code(s): N18.30 - Chronic kidney disease, stage 3 unspecified Category: Medical Qualifiers: Chronic kidney disease stage 3 subtype: stage 3b (GFR 30-44) Qualified Code(s): N18.32 - Chronic kidney disease, stage 3b (7) Asthma-COPD overlap syndrome: Code(s): J44.9 - Chronic obstructive pulmonary disease, unspecified Category: Medical (8) Macrocytic anemia: Code(s): D53.9 - Nutritional anemia, unspecified Category: Medical (9) Insomnia: Code(s): G47.00 - Insomnia, unspecified Category: Medical Plan The patient will continue her current medications for COPD, hypertension, and osteoporosis. She is advised to maintain her blood pressure control and avoid NSAIDs to protect her renal function. A follow-up with endocrinology for osteoporosis management is scheduled, and she will continue Fosamax therapy. Laboratory tests are recommended to assess vitamin levels due to macrocytic anemia. The patient is reminded to adhere to her medication regimen for depression and insomnia. Patient was informed and verbally consented to the use of an ambient scribe for clinic note documentation during this visit. Orders: Orders IRON PROFILE Today D64.9 - Anemia, unspecified Comprehensive [place]. Panel Fast Today I10 - Essential (primary) hypertension Vitamin B12 and Folate Today E53.8 - Deficiency of other specified B group vitamins Complete Blood Count Auto Diff Today D64.9 - Anemia, unspecified Vitamin D 25-OH Total Today E55.9 - Vitamin D deficiency, unspecified Lipid Panel Today E78.5 - Hyperlipidemia, unspecified Medications: Refilled zolpidem 10 mg PO BEDTIME PRN 30 tabs 0RF insomnia 30 days omeprazole 20 mg PO DAILY 90 caps 3RF 90 days fluoxetine 40 mg PO QAM 90 caps 1RF 90 days
== END 2025-05-06 08:37 | disposition home or self-care (01) ==
LOC: HO.HMCH 07:57
PROVIDERS: PCP Internal Medicine; Visit Provider Internal Medicine
DX: I10 Essential (primary) hypertension (principal); E78.00 Pure hypercholesterolemia, unspecified; M81.0 Age-related osteoporosis without current pathological fracture; F33.1 Major depressive disorder, recurrent, moderate; K21.9 Gastro-esophageal reflux disease without esophagitis; N18.32 Chronic kidney disease, stage 3b; J44.9 Chronic obstructive pulmonary disease, unspecified; D53.9 Nutritional anemia, unspecified; G47.00 Insomnia, unspecified

== ENCOUNTER → 2025-05-06 07:56 | Outpatient (BNVA) | payer OTHER, SELFPAY | PROVIDERS: PCP Internal Medicine; Visit Provider Internal Medicine | DX: I12.9 Hypertensive chronic kidney disease with stage 1 through stage 4 chronic kidney disease, or unspecified chronic kidney disease (principal); N18.32 Chronic kidney disease, stage 3b; J44.9 Chronic obstructive pulmonary disease, unspecified; M81.0 Age-related osteoporosis without current pathological fracture; E78.00 Pure hypercholesterolemia, unspecified; F33.1 Major depressive disorder, recurrent, moderate; K21.9 Gastro-esophageal reflux disease without esophagitis; D53.9 Nutritional anemia, unspecified; G47.00 Insomnia, unspecified; Z79.899 Other long term (current) drug therapy | CPT/HCPCS: 96127; 99212 ==

== ENCOUNTER 2025-05-13 09:19 | Outpatient (AMB) | payer OTHER, SELFPAY ==
--- NOTE | 2025-05-13 09:45 | A.OFFVIS_ITS ---
Vital Signs 05/13/25 09:47 Height 5 ft 3 in Weight 128 lb 0.006 oz BMI 22.7 Intake Visit Reasons: PO: R TKA w/NE 02/16/25 Intake Note: Socorro is an 84 year old female who presents today for a post operative visit s/p right TKA on 02/16/25. patient reports she is experincing slight discomfort asked what is her pain level she rated a 2 on the pain scale. has no further questions or concerns Allergies trazodone Allergy (Intermediate, Verified 05/13/25 09:54) nausea HPI HPI PO: R TKA w/NE 02/16/25: Details: Socorro is an 84 year old female who presents today for a post operative visit s/p right TKA on 02/16/25. patient reports she is experincing slight discomfort asked what is her pain level she rated a 2 on the pain scale. has no further questions or concerns PFSH Medical History Evaluation by medical service required Back pain Arthritis Asthma Wears dentures COPD (chronic obstructive pulmonary disease) HLD (hyperlipidemia) HTN (hypertension) Seasonal allergies Mandible pain Moderate recurrent major depression Anxiety Insomnia Migraines GERD (gastroesophageal reflux disease) Pure hypercholesterolemia Surgical History History of total right knee replacement Hx of colonoscopy H/O rectal polypectomy History of cholecystectomy History of repair of rectocele History of bilateral cataract extraction History of sinus surgery Family History Father Cancer Mother Pancreatic cancer Brother Pancreatic cancer Daughter Breast cancer Family/Other FH: mental illness Substance use disorder Maternal Grandmother Diabetes Social History Household Members: Other Household Members Other:: daughter Housing: House Are you a primary neonatal intensive care nurse to a significant other at home: No Do you presently have visiting nurse or other home services: No 75 years or older and lives alone: No Alcohol intake: never Comment: COUNTS CORRECT Patient Tobacco Use Status: Former Tobacco user Tobacco use type: Cigarette Cigarettes Per Day: 4 Years Smoked: Started around age 21, on and off. quit 09/2024 e-Cigarette/Vaping Use: Never Used Second Hand Smoke Exposure: Yes Advance Directives Date on File: 07/12/09 service: No Current occupational status: disabled Cognitive needs: Yes Hearing needs: No Vision needs: Yes Physical Exam Vital Signs: BMI result Body Mass Index 22.7 Extrem Other: Right knee incision clean dry and intact. Stable arc of motion. 0-125 degrees of motion. Normal gait. Assessment & Plan Assessment & Plan (1) Status post total knee replacement, right: Code(s): Z96.651 - Presence of right artificial knee joint Category: Surgical Plan: Status post right knee replacement doing well. No additional intervention warranted. Discussed dental prophylaxis. We will send antibiotics to pharmacy is getting dental work in about a month. Medications: New amoxicillin Take one hour prior to dental work 2,000 mg (4 x 500 mg) PO BID 4 caps 0RF dental work Coding Level of Care Code Global (16354) Diagnoses Status post total knee replacement, right Z96.651
[2025-05-13 09:47] VITALS: BMI 22.7
--- OUTSIDE RECORDS SUMMARY | 2025-05-13 10:25 | XMS_ITS | Clinical Summary ---
Author Organization [facility] Address [address] [place] [address] Phone Care Team Providers Care Beading Installer Name Role Phone Unavailable Primary Care [...] age to complete this topic Insurance Kamla Dupo
--- OUTSIDE RECORDS SUMMARY | 2025-05-13 10:25 | XMS_ITS | Clinical Summary ---
Author Organization [employer] Address [address] [place] [address] Care Team Providers Care Manager Of Information Name Role Phone Unavailable Primary Care Provider [...] Mass Index - - Plan of Treatment Upcoming Encounters Date Type Department Care Team (Late st Contact Info) Description 06/07/2025 11:00 AM EDT Office Visit [facility] [address] [place] [address] Kike Nuñez DDS [address] [place] [address] Health Maintenance Due Date Last Done Comments [...] X-Ray: Full Mouth 04/01/2024 03/31/2021 COVID-19 Vaccine (3 - season) 2024 06/20/2021, 05/11/2021 Dental Oral Exam [...] Most Recently Relevant to Health Maintenance Insurance [facility]
== END 2025-05-13 10:38 | disposition home or self-care (01) ==
LOC: HO.HOS 09:20
PROVIDERS: PCP Internal Medicine; Visit Provider Orthopaedic Surgery
DX: Z96.651 Presence of right artificial knee joint (principal)
CPT/HCPCS: 99024

== ENCOUNTER → 2025-05-13 09:19 | Outpatient (BNVA) | payer OTHER, SELFPAY | PROVIDERS: PCP Internal Medicine; Visit Provider Orthopaedic Surgery | DX: Z96.651 Presence of right artificial knee joint (principal) | CPT/HCPCS: 99212 ==

== ENCOUNTER 2025-07-30 08:16 | Outpatient (REF) | payer OTHER, SELFPAY ==
--- OUTSIDE RECORDS SUMMARY | 2025-07-30 08:33 | XMS_ITS | Clinical Summary ---
Author Organization [facility] Address [address] [place] [address] Phone Care Team Providers Care Hide And Skin Fleshing Machine Operator Name Role Phone Unavailable Primary Care [...] patient's age to complete this topic Insurance [place]
--- OUTSIDE RECORDS SUMMARY | 2025-07-30 08:33 | XMS_ITS | Clinical Summary ---
Author Organization [employer] Address [address] [place] [address] Care Team Providers Care Claim Manager Name Role Phone Unavailable Primary Care [...] edentulism 05/28/2024 Severe atrophy of mandible 05/28/2024 Encounters Date Type Department Care Team Description 06/25/[address] [facility] [address] [place] [phone] Kike Nuñez DDS 06/07/2025 11:00 AM EDT Office Visit [facility] [address] [place] [phone] Kike Nuñez DDS Complete edentulism, unspecified edentulism class (Primary Dx); Severe atrophy of mandible; Ill-fitting dentures from Last 3 Months Social History Tobacco Use Types Packs/Day Years [...] Sign Reading Time Taken Comments Blood Pressure 128/76 06/07/2025 10:43 AM EDT Pulse 66 06/07/2025 10:43 AM EDT Temperature - - Respiratory Rate - - Oxygen Saturation - - Inhaled Oxygen Concentration - - Weight - - Height - - Body Mass Index - - Plan of Treatment Upcoming Encounters Date Type Department Care Team (Late st Contact Info) Description 08/18/2025 3:30 PM EST Office Visit [facility] [address] [place] [address] RadhakofiDelanos, DDS [address] [place] [address] Health Maintenance Due Date Last Done Comments Dental Prophylaxis 1941 Dental X-Ray: Bitewings 1941 Depression Screening 1941 Lipid Panel 1941 SDOH Screening 1941 Alcohol/Substance Use Screening 1953 Zoster Vaccines (1 of 2) 12/23/1991 RSV Patients and Patients Aged 60 years or older (1 - 1-dose 75+ series) 2016 DTaP/Tdap/Td Vaccines (1 - Tdap) 05/15/2023 05/14/2023, 10/14/2006 COVID-19 Vaccine (3 - 2024- season) 2025 06/20/2021, 05/11/2021 Influenza Vaccine (#1) 2025 , 10/04/2022, 07/18/2020, Additional history exists Dental Oral Exam 12/06/2025 06/07/2025, 01/2024, 03/31/2021 Tobacco Screening 06/07/2026 06/07/2025 Dental X-Ray: Full Mouth 06/08/2028 06/07/2025, 07/0 05/2021 Hepatitis B Vaccines Completed 06/23/2008, 05/20/2007, 12/11/2006 [...] PERIODIC ORAL EVALUATION - ESTABLISHED PATIENT Routine 06/07/2025 11:00 AM EDT CASE PRESENTATION, DETAILED AND EXTENSIVE TREATMENT PLANNING Routine 06/07/2025 11:00 AM EDT PANORAMIC RADIOGRAPHIC IMAGE Routine 06/07/2025 11:00 AM EDT from Last 3 Months Insurance [facility]
[2025-07-30 08:36] LABS: Hematocrit 37.2 % (37.0-47.0); Hemoglobin 11.8 g/dl (12.0-16.0); Mean Corpuscular HGB Conc 31.7 g/dl (31.0-35.0); Mean Corpuscular Hemoglobin 30.4 pg (27.0-33.0); Mean Corpuscular Volume 95.9 fL (80.0-98.0); NRBC Abs Auto 0.000 X10*3/uL (0.0-0.012); NRBC Pct Auto 0.0 /100WBC (0.0-0.2); Platelet Count 312 X10*3/uL (160-400); Red Blood Count 3.88 X10*6/uL (4.20-5.50); White Blood Count 6.3 X10*3/uL (4.8-10.8)
[2025-07-30 09:26] LABS: Anion Gap 13 (12-20); Blood Urea Nitrogen 20 mg/dL (9-16); Calcium 9.2 mg/dL (8.4-10.2); Carbon Dioxide 24 mmol/L (22-29); Chloride 109 mmol/L (96-108); Estimated Glomerular Filt Rate 33; Potassium 4.6 mmol/L (3.3-5.1); Sodium 141 mmol/L (135-145)
== END 2025-07-30 08:17 | disposition home or self-care (01) ==
LOC: HO.LAB 08:16
PROVIDERS: PCP Internal Medicine; Visit Provider Internal Medicine Hypertension Specialist
DX: N18.32 Chronic kidney disease, stage 3b (principal)
CPT/HCPCS: 36415; 80048; 85027

== ENCOUNTER 2025-08-02 10:05 | Outpatient (AMB) | payer OTHER, SELFPAY ==
[2025-08-02 10:14] VITALS: BP 148/78; PULSE 95; O2SAT 96; BMI 22.5
--- NOTE | 2025-08-02 10:14 | HO.NEPHOV_ITS ---
Vital Signs 08/02/25 10:14 08/02/25 10:21 Height 5 ft 3 in Weight 127 lb BMI 22.5 BP 148/78 H 130/70 Blood Pressure Location Rt brachial Rt brachial Position Sitting Sitting Pulse 95 Pulse Source Pulse Oximeter Pulse Oximetry (%) 96 Oxygen Delivery Method Room Air Intake Visit Reasons: 6mon follow-up w/labs Software Quality Automation Engineer Required: Yes Software Quality Automation Engineer Name: Juan [id number] Accompanied by: Self / Same As Patient Allergies trazodone Allergy (Intermediate, Verified 08/02/25 10:15) nausea Medication List - Last Reconciled 08/02/25 by José Hays MD acetaminophen 650 mg (2 x 325 mg) PO Q6H PRN 30 days acetaminophen 500 mg PO Q6H PRN 30 days Held on 02/18/25. Instructions: Resume on 03/18/25. albuterol sulfate 90 mcg/actuation 2 puffs inhalation Q4-6H PRN alendronate 70 mg PO QWEEK 90 days amlodipine 5 mg PO DAILY 90 days amoxicillin 2,000 mg (4 x 500 mg) PO ONCE atorvastatin 80 mg PO DAILY 90 days calcium carbonate-vitamin D3 600 mg-10 mcg (400 unit) 1 tab PO DAILY cetirizine 10 mg PO DAILY 90 days cholecalciferol (vitamin D3) 25 mcg PO DAILY 90 days diclofenac sodium 1% 4 grams topical QID 30 days docusate sodium 100 mg PO BID 30 days enoxaparin 30 mg (0.3 mL) subcut Q24H 28 days fluoxetine 40 mg PO QAM 90 days fluticasone propionate 50 mcg/actuation (Flonase Allergy Relief) 1 spray intranasal DAILY 30 days ldmgafpibgy-yrghpoygn-mljeussc 200-62.5-25 mcg (Trelegy Ellipta) 1 ea PO DAILY meclizine 25 mg PO DAILY PRN 30 days omeprazole 20 mg PO DAILY 90 days quetiapine 25 mg PO BID 90 days sumatriptan succinate 50 mg PO DAILY PRN 90 days walker Folding Front wheeled walker duration 99 days zolpidem 10 mg PO BEDTIME PRN 30 days HPI Comments Details: Socorro is a pleasant elderlywoman with a history of longstanding hypertension and mild CKD. She is here for semiannual follow-up. Overall she is doing very well. She denies any new complaints like headache nausea vomiting. No urinary symptoms no edema. She seems compliant with her medications. Software Quality Automation Engineer service was used. 08/02/25 The patient is an 84-year-old female presenting with decreased kidney function and hypertension. The patient has a history of hypertension, which is currently well-controlled with a blood pressure reading of 130/70 mmHg. She is adherent to her medication regimen and reports no issues with her current treatment plan. The patient also has a history of anemia, with recent lab results showing an improvement in hemoglobin levels to 11.8 g/dL. This improvement is noted as a positive trend in her condition. Gradual increase in creatinine up to 1.4 PFSH Medical History Evaluation by medical service required Back pain Arthritis Asthma Wears dentures COPD (chronic obstructive pulmonary disease) HLD (hyperlipidemia) HTN (hypertension) Seasonal allergies Mandible pain Moderate recurrent major depression Anxiety Insomnia Migraines GERD (gastroesophageal reflux disease) Pure hypercholesterolemia Surgical History History of total right knee replacement Hx of colonoscopy H/O rectal polypectomy History of cholecystectomy History of repair of rectocele History of bilateral cataract extraction History of sinus surgery Family History Father Cancer Mother Pancreatic cancer Brother Pancreatic cancer Daughter Breast cancer Family/Other FH: mental illness Substance use disorder Maternal Grandmother Diabetes Social History Household Members: Other Household Members Other:: daughter Housing: House Are you a primary behavioral health care manager to a significant other at home: No Do you presently have visiting nurse or other home services: No 75 years or older and lives alone: No Alcohol intake: never Comment: COUNTS CORRECT Patient Tobacco Use Status: Former Tobacco user Tobacco use type: Cigarette Cigarettes Per Day: 4 Years Smoked: Started around age 21, on and off. quit 09/2024 e-Cigarette/Vaping Use: Never Used Second Hand Smoke Exposure: Yes Advance Directives Date on File: 07/12/09 service: No Current occupational status: disabled Cognitive needs: Yes Hearing needs: No Vision needs: Yes Physical Exam Vital Signs: Last Vital Signs Pulse 95 08/02/25 10:14 BP 130/70 08/02/25 10:21 Pulse Ox 96 08/02/25 10:14 Oxygen Delivery Method Room Air 08/02/25 10:14 BMI result Body Mass Index 22.5 Const General: comfortable Nutritional Appearance: well nourished Orientation/consciousness: patient oriented x3 HEENT Head: No normal to inspection Mouth: moist mucous membranes Neck Neck: Yes supple and Yes no JVD Resp Auscultation: clear to auscultation bilaterally, no rales and rub present Cardio Jugular venous distension: no JVD Palpation: no palpable S3 and no palpable S4 Heart sounds: no rubs GI Palpation (GI): Soft to palpation and nontender Percussion: No Fluid wave present General: Yes no CVA tenderness Back/Spine/Pelvis Back: no CVA tenderness Skin General skin exam: no rashes or lesions noted Neuro General: patient oriented x3 Extrem General: Yes no pedal edema and No clubbing Results Reviewed Nephrology Results: Hgb, (12.0-16.0) 11.8 g/dl L Δ 07/30/25 WBC, (4.8-10.8) 6.3 X10*3/uL 07/30/25 Plt Count, (160-400) 312 X10*3/uL 07/30/25 Sodium, (135-145) 141 mmol/L 07/30/25 Potassium, (3.3-5.1) 4.6 mmol/L 07/30/25 Chloride, (96-108) 109 mmol/L H 07/30/25 Carbon Dioxide, (22-29) 24 mmol/L 07/30/25 BUN, (9-16) 20 mg/dL H 07/30/25 Creatinine, (0.5-1.4) 1.49 mg/dL H 07/30/25 Calcium, (8.4-10.2) 9.2 mg/dL Δ 07/30/25 Assessment & Plan Assessment & Plan (1) CKD (chronic kidney disease) stage 3, GFR 30-59 ml/min: Code(s): N18.30 - Chronic kidney disease, stage 3 unspecified Category: Medical Qualifiers: Chronic kidney disease stage 3 subtype: stage 3b (GFR 30-44) Qualified Code(s): N18.32 - Chronic kidney disease, stage 3b Plan Socorro has stage IIIA CKD in a setting of longstanding hypertension. Gradual increase in creatinine Possible LINDA need to r/o obstruction Will obtain ultrasound Goal is to slow the progression of renal disease. Continue to maintain blood pressure less than 130/80. Stay on low-sodium Continue to avoid nephrotoxic agents including NSAIDs. At present blood pressure is acceptable No changes were made to the medications. Mild elevation in intact PTH due to secondary hyperparathyroidism Watch for now Keep on Vit D Orders: Orders Basic Metabolic Panel 6 Weeks N18.32 - Chronic kidney disease, stage 3b US renal BI 6 Weeks N18.32 - Chronic kidney disease, stage 3b Coding Level of Care Code Est Pt Level 4 (94545) Diagnoses Stage 3b chronic kidney disease N18.32 Chronic kidney disease stage 3 subtype: stage 3b (GFR 30-44)
[2025-08-02 10:21] VITALS: BP 130/70
--- OUTSIDE RECORDS SUMMARY | 2025-08-02 11:46 | XMS_ITS | Clinical Summary ---
Author Organization [facility] Address [address] [place] [address] Phone Care Team Providers Care Model Photographers' Name Role Phone Unavailable Primary Care Provider [...] patient's age to complete this topic Insurance Ord Ord
--- OUTSIDE RECORDS SUMMARY | 2025-08-02 11:46 | XMS_ITS | Clinical Summary ---
Author Organization [employer] Address [address] [place] [address] Care Team Providers Care Contact Center Engineer Name Role Phone Unavailable Primary Care Provider [...] Type Department Care Team Description 06/25/2025 Telephone [facility] [address] [place] [id number] Kike Nuñez DDS 06/07/2025 11:00 AM EDT Office Visit [facility] [address] [place] [phone] Kike Nuñez DDS Complete edentulism, unspecified edentulism [...] Description 08/18/2025 3:30 PM EST Office Visit [facility] [address] [place] [address] RadhakofiDelanos, DDS [address] [place] [address] Health Maintenance Due Date Last Done Comments [...] AM EDT from Last 3 Months [place] [facility] [place]: [facility] [id number] [place] [address] [facility]
== END 2025-08-02 10:26 | disposition home or self-care (01) ==
LOC: HO.HKA 10:06
PROVIDERS: PCP Internal Medicine; Visit Provider Internal Medicine Hypertension Specialist
DX: N18.32 Chronic kidney disease, stage 3b (principal)
CPT/HCPCS: 99214

== ENCOUNTER → 2025-08-02 10:05 | Outpatient (BNVA) | payer OTHER, SELFPAY | PROVIDERS: PCP Internal Medicine; Visit Provider Internal Medicine Hypertension Specialist | DX: I12.9 Hypertensive chronic kidney disease with stage 1 through stage 4 chronic kidney disease, or unspecified chronic kidney disease (principal); N18.31 Chronic kidney disease, stage 3a; D63.1 Anemia in chronic kidney disease | CPT/HCPCS: 99212 ==

== ENCOUNTER 2025-09-14 08:59 | Outpatient (AMB) | payer OTHER, SELFPAY ==
--- OUTSIDE RECORDS SUMMARY | 2025-09-14 09:30 | XMS_ITS | Clinical Summary ---
Author Organization [employer] Address [address] [place] [address] Care Team Providers Care Savings Counselor Name Role Phone Unavailable Primary Care Provider [...] Encounters Date Type Department Care Team Description 09/06/2025 Telephone [facility] [address] [place] [address] Kike Nuñez DDS 08/18/2025 1:30 PM EST Office Visit [facility] [address] [place] [address] Kike Nuñez DDS Complete edentulism, unspecified edentulism class (Primary Dx) 06/25/2025 Telephone [facility] [address] [place] [address] Kike Nuñez DDS from Last 3 Months Social History Tobacco Use Types Packs/Day Years Used Date Smoking Tobacco: Every Day Cigarettes Passive Smoke Exposure: Never Smokeless Tobacco: Former Tobacco Cessation:Ready to Q uit: Not Asked; Counseling Given: Not Answered Alcohol Use Standard Drinks/Week Comments Defer 0 (1 standard drink = 0.6 oz pur e alcohol) Alcohol Answer Date Recorded How often do you have a drink containing alcohol ? 0 08/18/2025 Average Number of Drinks Not on file 025 How often do you have six or more drinks on one occasion? 0 08/18/2025 Comments Unknown Sex and Gender Information Value Date Recorded Sex Assigned at Female 07/23/2022 10:16 AM EDT Legal Sex Female 10:16 AM EDT Gender Identity Female 07/23/2022 10:16 AM EDT Sexual Orientation Choose not to disclose 2021 10:16 AM EDT Last Filed Vital Signs Vital Sign Reading Time Taken Comments Blood Pressure 126/74 08/18/2025 12:57 PM EST Pulse 66 06/07/2025 10:43 AM EDT Temperature - - Respiratory Rate - - Oxygen Saturation - - Inhaled Oxygen Concentration - - Weight - - Height - - Body Mass Index - - Plan of Treatment Health Maintenance Due Date Last Done Comments Dental Prophylaxis 1941 Dental X-Ray: Bitewings 1941 Depression Screening 1941 Lipid Panel 1941 SDOH Screening 1941 Zoster Vaccines (1 of 2) 12/23/1991 RSV Patients and Patients Aged 60 years or older (1 - 1-dose 75+ series) 2016 DTaP/Tdap/Td Vaccines (1 - Tdap) 05/15/2023 05/14/2023, 10/14/2006 COVID-19 Vaccine (3 - 2024- season) 2025 06/20/2021, 05/11/2021 Influenza Vaccine (#1) 2025 , 10/04/2022, 07/18/2020, Additional history exists Dental Oral Exam 12/06/2025 06/07/2025, 01/2024, 03/31/2021 Alcohol/Substance Use Screening 08/18/2026 08/18/2025 Tobacco Screening 08/18/2026 08/18/2025 Dental X-Ray: Full Mouth 06/08/2028 06/07/2025, 07/0 [...] Procedure Name Priority Date/Time Associated Diagnosis Comments DENTURE IMPRESSION Routine 08/18/2025 1: 30 PM EST PANORAMIC RADIOGRAPHIC IMAGE Routine 06/07/2025 11:00 AM EDT PERIODIC ORAL EVALUATION - ESTABLISHED PATIENT Routine 06/07/2025 11:00 AM EDT from Last 3 Months or Most Recently Relevant to Health Maintenance Insurance [facility]
[2025-09-14 10:14] VITALS: BP 126/90; PULSE 77; TEMP 36.2; O2SAT 98; BMI 22.0
--- NOTE | 2025-09-14 10:14 | MHC.PC.OV ---
Vital Signs 09/14/25 10:14 Height 5 ft 3 in Weight 124 lb BMI 22.0 BP 126/90 H Blood Pressure Location Lt brachial Position Sitting Pulse 77 Pulse Source Pulse Oximeter Temp 97.1 F Temp Source Temporal Artery Scan Pulse Oximetry (%) 98 Oxygen Delivery Method Room Air Intake Visit Reasons: bp Self Pay Representative Required: No Accompanied by: Self / Same As Patient Allergies trazodone Allergy (Intermediate, Verified 09/14/25 10:25) nausea Medication List - Last Reconciled 09/14/25 by Socorro Short MD acetaminophen 650 mg (2 x 325 mg) PO Q6H PRN 30 days acetaminophen 500 mg PO Q6H PRN 30 days Held on 02/18/25. Instructions: Resume on 03/18/25. albuterol sulfate 90 mcg/actuation 2 puffs inhalation Q4-6H PRN alendronate 70 mg PO QWEEK 90 days amlodipine 5 mg PO DAILY 90 days atorvastatin 80 mg PO DAILY 90 days calcium carbonate-vitamin D3 600 mg-10 mcg (400 unit) 1 tab PO DAILY cetirizine 10 mg PO DAILY 90 days cholecalciferol (vitamin D3) 25 mcg PO DAILY 90 days diclofenac sodium 1% 4 grams topical QID 30 days docusate sodium 100 mg PO BID 30 days enoxaparin 30 mg (0.3 mL) subcut Q24H 28 days fluoxetine 40 mg PO QAM 90 days fluticasone propionate 50 mcg/actuation (Flonase Allergy Relief) 1 spray intranasal DAILY 30 days ruxmpdkgarv-frjhoihpx-cpjqwkpv 200-62.5-25 mcg (Trelegy Ellipta) 1 ea PO DAILY meclizine 25 mg PO DAILY PRN 30 days omeprazole 20 mg PO DAILY 90 days quetiapine 25 mg PO BID 90 days sumatriptan succinate 50 mg PO DAILY PRN 90 days walker Folding Front wheeled walker duration 99 days zolpidem 10 mg PO BEDTIME PRN 30 days Tobacco use date assessed: 09/14/25 Fall risk assessment: No Falls in past year Last assessed Fall Risk: 09/14/25 Dental Screening Dental Screen Date: 09/14/25 Did you have a dental visit in the last 12 months?: Yes Did you have a dental problem in the last 6 months where you did not have access to dental care?: No Was dental information given to patient?: Patient has dentist HPI HPI Comments History of Present Illness Details This is an 84-year-old female with hypertension, asthma-COPD overlap syndrome, chronic kidney disease stage 3, mild recurrent major depression, anxiety and osteoporosis that comes today complaining of some rectal bleeding that started few weeks ago. I will refer her to Gastroenterology. She does have some mild anemia. She also complains of blurry vision and would like to see Ophthalmology. Blood pressure borderline normal to elevated. On long-acting inhaler for her asthma-COPD overlap syndrome and this is follow by pulmonology. Last GFR is 33 and chronic kidney disease is follow by Nephrology. Depression with anxiety stable with SSRIs. DEXA scan done this year showing osteoporosis and she is on alendronate and follows with endocrinology for this matter. Also has insomnia stable with zolpidem and has not had any side effects from it. [facility] Medical History (Updated 09/14/25 @ 10:36 by Socorro Short MD) Evaluation by medical service required Back pain Arthritis Asthma Wears dentures COPD (chronic obstructive pulmonary disease) HLD (hyperlipidemia) HTN (hypertension) Seasonal allergies Mandible pain Moderate recurrent major depression Anxiety Insomnia Migraines GERD (gastroesophageal reflux disease) Pure hypercholesterolemia Surgical History History of total right knee replacement Hx of colonoscopy H/O rectal polypectomy History of cholecystectomy History of repair of rectocele History of bilateral cataract extraction History of sinus surgery Family History Father Cancer Mother Pancreatic cancer Brother Pancreatic cancer Daughter Breast cancer Family/Other FH: mental illness Substance use disorder Maternal Grandmother Diabetes Social History Household Members: Other Household Members Other:: daughter Housing: House Are you a primary insurance healthcare representative to a significant other at home: No Do you presently have visiting nurse or other home services: No 75 years or older and lives alone: No Alcohol intake: never Comment: COUNTS CORRECT Patient Tobacco Use Status: Former Tobacco user Tobacco use type: Cigarette Cigarettes Per Day: 4 Years Smoked: Started around age 21, on and off. quit 09/2024 Packs per year/per ci.00 e-Cigarette/Vaping Use: Never Used Second Hand Smoke Exposure: Yes Advance Directives Date on File: 07/12/09 service: No Current occupational status: disabled Cognitive needs: Yes Hearing needs: No Vision needs: Yes Questionnaire PHQ-9 Over the last 2 weeks, how often have you been bothered by any of the following problems? 1. Little interest or pleasure in doing things: not at all 2. Feeling down, depressed, or hopeless: not at all 3. Trouble falling or staying asleep, or sleeping too much: not at all 4. Feeling tired or having little energy: not at all 5. Poor appetite or overeating: not at all 6. Feeling bad about yourself - or that you are a failure or have let yourself or your family down: not at all 7. Trouble concentrating on things, such as reading the newspaper or watching television: not at all 8. Moving or speaking so slowly that other people could have noticed. Or the opposite - being so fidgety or restless that you have been moving around a lot more than usual: not at all 9. Thoughts that you would be better off or of hurting yourself in some way: not at all Total score: 0 Depression Screening Interpretation: Negative Depression Screening Done: Yes 85384 - PHQ-9 Billing: Yes Source: Developed by Drs. Nimesh Schumacher, Leisa Austin, Marshall Blum and colleagues, with an educational rhianna from [employer]. Thrive Questionnaire Date Thrive assessed: 09/14/25 I am a: Patient What is your living situation today?: I have a steady place to live Within the past 12 months, did the food you bought not last and you didn't have the money to get more?: Never true Within the past 12 months, did you worry whether your food would run out before you got money to buy more?: Never true Do you have trouble paying for medicines?: No Do you have trouble getting transportation to medical appointments?: No Do you have trouble paying your heating and electricity bill?: No Do you have trouble taking care of your child, family member or friend?: No Do you have trouble with day-to-day activities such as bathing, preparing meals, shopping, managing finances, etc.?: No Are you currently unemployed and looking for a job?: Yes Are you interested in more education?: No Currently or been in a relationship where the following occur: No concerns reported THRIVE Score: 0 AUDIT C Alcohol Use Questionnaire (AUDIT-C) 1. How often do you have a drink containing alcohol?: Never 3. How often do you have six or more drinks on one occasion?: Never Total Score: 0 Score Reviewed/Action Taken: No JAN-7 AMB Questionnaire JAN-7 Date JAN - 7 assessed: 09/14/25 Feeling nervous, anxious, or on edge: 0 = Not at all Not being able to stop or control worryin = Not at all Worrying too much about different things: 0 = Not at all Trouble relaxin = Not at all Being so restless that it is hard to sit still: 0 = Not at all Becoming easily annoyed or irritable: 0 = Not at all Feeling afraid as if something awful might happen: 0 = Not at all Total JAN-7 score (0-4 normal; 5-9 mild; 10-14 moderate; 15-21 severe): 0 Source: Developed by Drs. Nimesh Schumacher, Leisa Austin, Marshall Blum and colleagues, with an educational rhianna from [employer]. JAN-7 Assessment Billing JAN-7 Assessment Tool: JAN-7 Assessment 24249 Review of Systems Const All systems reviewed & are unremarkable except as noted in HPI and below Card Denies chest pain at rest, Denies chest pain with activity, Denies edema, Denies irregular heart rhythm, Denies claudication, Denies dyspnea, Denies dyspnea on exertion, Denies orthopnea, Denies paroxysmal nocturnal dyspnea and Denies slow heart rate Resp Denies cough, Denies dyspnea and Denies dyspnea on exertion GI Denies abdominal pain, Denies change in bowel habits, Denies excessive flatus, Denies nausea and Denies vomiting Physical exam (Primary Care) Vital Signs: Last Vital Signs Temp 97.1 F 09/14/25 10:14 Pulse 77 09/14/25 10:14 BP 126/90 H 09/14/25 10:14 Pulse Ox 98 09/14/25 10:14 Oxygen Delivery Method Room Air 09/14/25 10:14 BMI result Body Mass Index 22.0 Tobacco/Smoking Status: Tobacco use Status Tobacco use date assessed 09/14/25 09/14/25 10:18 Patient Tobacco Use Status Former Tobacco user 09/14/25 10:18 Tobacco use type Cigarette 09/14/25 10:18 e-Cigarette/Vaping Use Never Used 09/14/25 10:18 PHQ-9: PHQ-9 Score PHQ-9: Total score 0 09/14/25 10:42 Depression Screening Interpretation: Negative Thrive Assessment: Date of Thrive Assessment Date Thrive assessed 09/14/25 09/14/25 10:18 Currently or been in a relationship where the following occur: No concerns reported Resp Effort & Inspection: normal respiratory effort Auscultation: clear to auscultation bilaterally Cardio Jugular venous distension: no JVD Rate: regular rate Rhythm: regular rhythm Heart sounds: S1 normal heart sound present and S2 normal heart sound present Extrem General: Yes full ROM Office Procedures Flu Questionnaire Does the patient have a severe egg allergy?: No Does the patient have severe life threatening allergies?: No Does the patient have a fever or illness today?: No Has the patient ever had Guillain-[place] Syndrome?: No Has the patient ever had any past reaction to a flu shot?: No Immunizations Fluarix [id number] (PF) 45 mcg (15 mcg x 3)/0.5 mL IM syringe Performing Provider: Socorro Short MD [facility] Administered by: Lian Jiang LPN on 09/14/25 10:43 Dose Route Admin Location Dispensed Lot Number Expiration Date NDC High Risk Ob 0.5 mL IM Right Deltoid 0.5 mL [id number] 03/22/26 [id number] [employer] VIS Given Date VIS Provided VIS Publication Date 09/14/25 Single Vaccine 24 Eligibility Eligibility Date Funding Source Not [facility] Eligible 09/14/25 Private Coding Level of Care Code Add On Preventative Visit Only Diagnoses Essential hypertension I10 Hypertension type: essential hypertension Moderate recurrent major depression F33.1 Anxiety F41.9 Osteoporosis M81.0 Stage 3b chronic kidney disease N18.32 Chronic kidney disease stage 3 subtype: stage 3b (GFR 30-44) 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 Blurry vision H53.8 Rectal bleeding K62.5 Insomnia G47.00 Additional Codes JAN-7 Assessment Billing - JAN-7 Assessment Tool: JAN-7 Assessment 35988 ([id number]) PHQ-9 - 09448 - PHQ-9 Billing: Yes ([id number]) Time Spent (min) 23 Assessment & Plan Assessment & Plan (1) HTN (hypertension): Code(s): I10 - Essential (primary) hypertension Category: Medical Qualifiers: Hypertension type: essential hypertension Qualified Code(s): I10 - Essential (primary) hypertension (2) Moderate recurrent major depression: Code(s): F33.1 - Major depressive disorder, recurrent, moderate Category: Medical (3) Anxiety: Code(s): F41.9 - Anxiety disorder, unspecified Category: Medical (4) Osteoporosis: Code(s): M81.0 - Age-related osteoporosis without current pathological fracture Category: Medical (5) CKD (chronic kidney disease) stage 3, GFR 30-59 ml/min: Code(s): N18.30 - Chronic kidney disease, stage 3 unspecified Category: Medical Qualifiers: Chronic kidney disease stage 3 subtype: stage 3b (GFR 30-44) Qualified Code(s): N18.32 - Chronic kidney disease, stage 3b (6) Asthma-COPD overlap syndrome: Code(s): J44.9 - Chronic obstructive pulmonary disease, unspecified Category: Medical (7) Blurry vision: Code(s): H53.8 - Other visual disturbances Category: Medical (8) Rectal bleeding: Code(s): K62.5 - Hemorrhage of anus and rectum Category: Medical (9) Insomnia: Code(s): G47.00 - Insomnia, unspecified Category: Medical Plan Continue current meds. Blood pressure goal is equal or less than 130/80. Follow-up with pulmonology for asthma-COPD overlap syndrome. Follow-up with nephrology for chronic kidney disease stage 3. Follow-up with endocrinology for osteoporosis. Referred to Gastroenterology for rectal bleeding. Referred to Ophthalmology for blurry vision. Orders: Orders Complete Blood Count Auto Diff Today D64.9 - Anemia, unspecified Vitamin B12 and Folate Today E53.8 - Deficiency of other specified B group vitamins Lipid Panel Today E78.5 - Hyperlipidemia, unspecified Microalbumin, Random (w Creat) Today R80.9 - Proteinuria, unspecified IRON PROFILE Today D64.9 - Anemia, unspecified Vitamin D 25-OH Total Today E55.9 - Vitamin D deficiency, unspecified Comprehensive [place]. Panel Fast Today I10 - Essential (primary) hypertension Influenza [id number] Immunization Today Z23 - Encounter for immunization Referrals Gastroenterology Referral K62.5 - Hemorrhage of anus and rectum Ophthalmology Referral H53.8 - Other visual disturbances Medications: Refilled fluticasone propionate 50 mcg/actuation (Flonase Allergy Relief) administer into each nostril 1 spray intranasal DAILY 9.9 mL 6RF 30 days zolpidem 10 mg PO BEDTIME PRN 30 tabs 0RF insomnia 30 days
== END 2025-09-14 10:43 | disposition home or self-care (01) ==
LOC: HO.HMCH 09:00
PROVIDERS: PCP Internal Medicine; Visit Provider Internal Medicine
DX: F33.1 Major depressive disorder, recurrent, moderate (principal); N18.32 Chronic kidney disease, stage 3b; J44.9 Chronic obstructive pulmonary disease, unspecified; G47.00 Insomnia, unspecified; F41.9 Anxiety disorder, unspecified; I10 Essential (primary) hypertension; M81.0 Age-related osteoporosis without current pathological fracture; H53.8 Other visual disturbances; Z23 Encounter for immunization

== ENCOUNTER → 2025-09-14 08:59 | Outpatient (BNVA) | payer OTHER, SELFPAY | PROVIDERS: PCP Internal Medicine; Visit Provider Internal Medicine | DX: I10 Essential (primary) hypertension (principal); F33.1 Major depressive disorder, recurrent, moderate; F41.9 Anxiety disorder, unspecified; M81.0 Age-related osteoporosis without current pathological fracture; N18.32 Chronic kidney disease, stage 3b; J44.9 Chronic obstructive pulmonary disease, unspecified; H53.8 Other visual disturbances; K62.5 Hemorrhage of anus and rectum; R80.9 Proteinuria, unspecified; E78.5 Hyperlipidemia, unspecified; D64.9 Anemia, unspecified; G47.00 Insomnia, unspecified; Z13.31 Encounter for screening for depression; Z13.39 Encounter for screening examination for other mental health and behavioral disorders; Z23 Encounter for immunization | CPT/HCPCS: 90471; 90656; 96127; 99212 ==